=== PATIENT | male | born 1945 | race Caucasian/White ===

== ENCOUNTER 2018-04-20 07:39 | Day surgery (SDC) | payer OTHER ==
[2018-04-17 12:47] LABS: Absolute Lymphocytes (CBC) 0.5 K/uL (0.7-4.9); Absolute Monocytes 0.5 K/uL (0.1-1.3); Absolute Neutrophil 3.4 K/uL (1.8-8.0); Basophils % 0.9 % (0-1.3); Eosinophils % 2.5 % (0-4.4); Hematocrit 35.2 % (39.6-49.0); Lymphocytes % 10.3 % (15.3-44.8); MCH 33.6 pg (27.0-35.0); MCV 97.1 fL (80-100); MPV 7.5 fL (7.6-11.3); Monocytes % 10.8 % (3.3-12.3); RBC Red Blood Cell Count 3.62 M/uL (4.33-5.43)
[2018-04-17 12:59] LABS: Potassium 3.9 mmol/L (3.5-5.1)
--- NOTE | 2018-04-17 15:11 | EKG ---
Test Date: 2018-04-17 Test Time: 12:25:18 Cad Drafter: AJAY MEASUREMENT RESULTS: Intervals: Rate: 56 IA: 176 QRSD: 84 QT: 426 QTc: 411 [place]: P: 51 IA: 176 QRS: 78 T: 77 INTERPRETIVE STATEMENTS: Sinus bradycardia Otherwise normal ECG No previous ECG available for comparison Electronically Signed On 04-17-18 15:10:24 HOT MOLDER by Shree Cordero
--- OUTSIDE RECORDS SUMMARY | 2018-04-20 07:41 | XMS REPORT | Clinical Summary ---
:1945 Author Organization [facility] Address [address] [place] [address] Care Team Providers Name Role Phone Trell Godwin MD Primary Care Provider Allergies Active Allergy Reactions Severity Noted Date Comments Penicillin G 11/05/2017 Medications Medication Sig Dispensed Refills Start Date End Date Status traMADol (ULTRAM) 50 0 10/08/2017 Active mg tablet atorvastatin 0 09/20/2017 Active (LIPITOR) 40 MG tablet levothyroxine 0 10/02/2017 Active (SYNTHROID, LEVOXYL) 112 mcg tablet multivit-min/FA/lycop Take by mouth. 0 Active en/lutein (CENTRUM SILVER MEN ORAL) omeprazole (PriLOSEC) Take 40 mg by 0 Active 40 MG capsule mouth daily. aspirin (ECOTRIN) 81 Take 81 mg by 0 Active MG enteric coated mouth daily. tablet cholecalciferol, Take 2,000 Units 0 Active vitamin D3, (VITAMIN by mouth daily. D3) 2,000 unit capsule capsule traMADol (ULTRAM) 50 Take 1-2 tablets 50 tablet 0 11/14/2017 11/19/2017 mg tablet (50-100 mg total) by mouth every 6 (six) hours as needed for moderate pain for up to 5 days. levoFLOXacin Take 1 tablet 7 tablet 0 11/17/2017 11/24/2017 (LEVAQUIN) 500 MG (500 mg total) tablet by mouth daily for 7 days. metroNIDAZOLE Take 1 tablet 21 tablet 0 11/17/2017 11/24/2017 (FLAGYL) 500 MG (500 mg total) tablet by mouth 3 (three) times a day for 7 days. 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) Alaguguimermy, (Primary Dx) CORNELL Araujo 12/11/2017 Office Visit General Surgery Jaime Greene Malignant neoplasm of MD [place] colon, unspecified Alagugurusamy, part of colon Jaqueline Carballo, (Primary Dx) SOFTWARE DEVELOPMENT COORDINATOR-C 11/30/2017 Orders Only General Surgery Reginosamy, Malignant neoplasm of Jaqueline Carballo, ascending colon SOFTWARE DEVELOPMENT COORDINATOR-C (Primary Dx) 11/27/2017 Office Visit General Surgery Jaime Greene Malignant neoplasm of MD [place] ascending colon (Primary Dx) 11/21/2017 Orders Only General Surgery Jaime Greene MD 11/17/2017 Orders Only General Surgery Samantha Alva MD 11/14/2017 Orders Only General Surgery Samantha Alva MD 11/06/2017 Orders Only General Surgery Jaime Greene MD 11/05/2017 Hospital Encounter Radiology Jaime Greene Benign neoplasm of MD [place] ascending colon 11/05/2017 Office Visit General Surgery Jaime Greene Polyp of ascending MD [place] colon, unspecified type (Primary Dx) 11/05/2017 Orders Only General Surgery Jaime Greene Benign neoplasm of MD [place] ascending colon (Primary Dx) after 04/19/2017 Family History Medical History Relation Name Comments Heart disease Father Hypertension Father Stroke Father Relation Name Status Comments Father Social History Tobacco Use Types Packs/Day Years Used Date Never Smoker Smokeless Tobacco: Never Used Alcohol Use Drinks/Week oz/Week Comments Yes 5 -8 week Sex Assigned at Date Recorded Not on file Job Start Date Occupation Industry Not on file Not on file Not on file Travel History Travel Start Travel End No recent travel history available. Last Filed Vital Signs Vital Sign Reading Time Taken Blood Pressure 165/84 04/16/2018 9:46 AM [employer]MENT[employer] Pulse 67 04/16/2018 9:46 AM [employer]MENT[employer] Temperature 36.8 C (98.2 F) 04/16/2018 9:46 AM [employer]MENTAL BU[employer]ER Respiratory Rate - - Oxygen Saturation - - Inhaled Oxygen Concentration - - Weight 53.1 kg (117 lb) 12/11/2017 1:35 PM CDT Height 188 cm (6' 2") 11/05/2017 5:49 PM CDT Body Mass Index 15.02 12/11/2017 1:35 PM CDT Plan of Treatment Health Maintenance Due Date Last Done Comments COLON CANCER SCREENING 1993 SHINGRIX VACCINE (1 of 2) 1993 ZOSTER VACCINE 2003 PNEUMOCOCCAL POLYSACCHARIDE VACCINE AGE 65 AND OVER 01/14/2008 PNEUMOCOCCAL-13 01/14/2008 INFLUENZA VACCINE 12/10/2017 Procedures Procedure Name Priority Date/Time Associated Comments Diagnosis SURGICAL PATHOLOGY Routine 11/14/[address] CHEST W CONTRAST Routine 11/05/2017 6:30 PM Benign neoplasm of Results for this CDT ascending colon procedure are in the results section. ESTIMATED GFR Routine 11/05/2017 6:01 PM Results for this CDT procedure are in the results section. POC CREATININE Routine 11/05/2017 6:01 PM Results for this CDT procedure are in the results section. after 04/19/2017 Results Surgical pathology request (11/14/2017) Specimen Tissue Narrative Performed At CT Chest W Contrast (11/05/2017 6:30 PM CDT) Narrative Performed At CT CHEST W CONTRAST RADIANT CLINICAL INDICATION: D12.2 Benign neoplasm of ascending colon, cecal mass TECHNIQUE:Multidetector CT imaging of the chest was performed following the administration of intravenous contrast with multiplanar reconstructions. CT scans are performed using radiation dose reduction techniques (iterative reconstruction and/or automated exposure control). Technical factors are evaluated and adjusted to ensure appropriate moderation of exposure. Automated dose management technology is applied to adjust radiation exposure while achieving a diagnostic quality image. COMPARISON:None. FINDINGS: Lungs and large airways: Mild biapical scarring. Right lower lobe perifissural 4 mm nodule (series 3 image 73). No pulmonary nodules visualized. No focal or confluent airspace consolidation. Pleura:No pleural effusion, pleural thickening, or pneumothorax. Heart and pericardium:Heart size is normal. Mild coronary atherosclerosis. No pericardial effusion. Vessels:No aortic aneurysm or dissection. Main pulmonary artery measures 2.3 cm in diameter. No pulmonary emboli within proximal pulmonary arteries. Mediastinum and justyn:No mass or hematoma. Lymph nodes:No pathological adenopathy in the justyn, axilla or mediastinum. Chest wall:Unremarkable. Bones:Mild degenerative changes. Upper abdomen: Right renal cyst measuring 2.4 cm. Small hiatal hernia.. IMPRESSION: Right lower lobe perifissural nodule (4 mm) is indeterminate though possibly represents intrapulmonary lymph node. Follow-up is recommended. [facility]-[id number] Procedure Note Hm Interface, Radiology Results Incoming - 11/05/2017 8:[address] CHEST W CONTRAST CLINICAL INDICATION: D12.2 Benign neoplasm of ascending colon, cecal mass TECHNIQUE: Multidetector CT imaging of the chest was performed following the administration of intravenous contrast with multiplanar reconstructions. CT scans are performed using radiation dose reduction techniques (iterative reconstruction and/or automated exposure control). Technical factors are evaluated and adjusted to ensure appropriate moderation of exposure. Automated dose management technology is applied to adjust radiation exposure while achieving a diagnostic quality image. COMPARISON: None. FINDINGS: Lungs and large airways: Mild biapical scarring. Right lower lobe perifissural 4 mm nodule (series 3 image 73). No pulmonary nodules visualized. No focal or confluent airspace consolidation. Pleura: No pleural effusion, pleural thickening, or pneumothorax. Heart and pericardium: Heart size is normal. Mild coronary atherosclerosis. No pericardial effusion. Vessels: No aortic aneurysm or dissection. Main pulmonary artery measures 2.3 cm in diameter. No pulmonary emboli within proximal pulmonary arteries. Mediastinum and justyn: No mass or hematoma. Lymph nodes: No pathological adenopathy in the justyn, axilla or mediastinum. Chest wall: Unremarkable. Bones: Mild degenerative changes. Upper abdomen: Right renal cyst measuring 2.4 cm. Small hiatal hernia.. IMPRESSION: Right lower lobe perifissural nodule (4 mm) is indeterminate though possibly represents intrapulmonary lymph node. Follow-up is recommended. [facility]-[id number] Performing Organization Address City/State/Zipcode Phone Number [facility] [phone] [place] [address] Estimated GFR (11/05/2017 6:01 PM CDT) GFR Non Af Amer 73 mL/min/1.73 m2 [facility] DEPARTMENT OF PATHOLOGY AND GENOMIC MEDICINE GFR Af Amer 88 mL/min/1.73 m2 [facility] DEPARTMENT OF Comment: PATHOLOGY AND GENOMIC Chronic kidney disease: <60 mL/min/1.73m2 MEDICINE Kidney failure: <15 mL/min/1.73m2 The estimated GFR is calculated from the IDMS-traceable Modification of Diet in Renal Disease Equation. The accuracy of the calculation is poor when the creatinine is normal. Calculated values >90 mL/min/1.73m2 are not reported. This equation has not been validated in children (<18 years), women, the elderly (>70 years), or ethnic groups other than Caucasians and Americans. Specimen Blood Performing Organization Address City/State/Zipcode Phone Number [facility] DEPARTMENT OF PATHOLOGY AND [address] [place] [address] GENOMIC MEDICINE POC creatinine (11/05/2017 6:01 PM CDT) POC creatinine 1.0 0.7 - 1.2 mg/dl [facility] DEPARTMENT OF PATHOLOGY Comment: AND GENOMIC MEDICINE Meter ID: [id number] Dry Box Tender: Duc Lopez Specimen Blood Performing Organization Address City/[facility]/Zipcode Phone Number [facility] DEPARTMENT OF PATHOLOGY AND [address] [place] [address] GENOMIC MEDICINE after 04/19/2017 Insurance Payer Benefit Plan / Group Subscriber ID Type Phone Address MEDICARE MEDICARE PART A AND B xxxxxxxxxx Medicare [place], [place] AETNA AETNA PPO OPEN CHOICE xxxxxxxxx PPO (Home) [address] [place] [id number] Advance Directives Patient has advance care planning documents on file. For more information, please contact:Humphrey Leroy[address] [place] [address]
--- OUTSIDE RECORDS SUMMARY | 2018-04-20 07:41 | XMS REPORT | Clinical Summary ---
:[address] [facility] Address [address] [place] [address] Care Team Providers Name Role Phone Nelsy Kumar Primary Care Provider Allergies Active Allergy Reactions Severity Noted Date Comments Penicillins Swelling High 11/10/2017 Medications Medication Sig Dispensed Refills Start Date End Date Status atorvastatin Take 40 mg by 0 Active (LIPITOR) 40 MG mouth daily. tablet lisinopril Take 5 mg by 0 Active (PRINIVIL,ZESTRIL) 5 mouth daily. MG tablet levothyroxine Take 112 mcg 0 Active (SYNTHROID, by mouth LEVOTHROID) 112 MCG Every morning tablet on an empty stomach. OMEPRAZOLE ORAL Take by mouth 0 Active daily. cyanocobalamin 2000 Take 2,000 0 Active MCG tablet mcg by mouth daily. cholecalciferol, Take 5,000 0 Active vitamin D3, 5,000 Units by unit Tab mouth daily. TURMERIC ROOT Take by mouth 0 Active EXTRACT ORAL daily. ogzmbklv-jemp-uue-fo Take by mouth 0 Active lic acid daily. (OTBGEICGHUOV-TVTT-U INERALS-FOLIC ACID) 3,500-18-0.4 unit-mg-mg Chew levoFLOXacin Take 1 tablet 7 tablet 0 11/17/2017 11/24/2017 (LEVAQUIN) 500 MG (500 mg tablet total) by mouth daily for 7 days. metroNIDAZOLE Take 1 tablet 21 tablet 0 11/17/2017 11/17/2017 Discontinued (FLAGYL) 500 MG (500 mg tablet total) by mouth every 8 (eight) hours for 7 days. traMADol (ULTRAM) 50 Take 1-2 30 tablet 0 11/17/2017 11/27/2017 mg tablet tablets (50-100 mg total) by mouth every 6 (six) hours as needed for up to 10 days. Max Daily Amount: 400 mg linezolid (ZYVOX) Take 1 tablet 14 tablet 0 11/17/2017 11/17/2017 Discontinued 600 mg tablet (600 mg total) by mouth 2 (two) times daily for 7 days. linezolid (ZYVOX) Take 1 tablet 14 tablet 0 11/17/2017 11/24/2017 600 mg tablet (600 mg total) by mouth 2 (two) times daily for 7 days. Active Problems Problem Noted Date Adenoma of ascending colon 11/14/2017 Encounters Date Type Specialty Care Team Description 11/14/2017 Anesthesia Event Beverly Cox NP 11/14/2017 Surgery Jaime Greene LAPAROSCOPY,COLECTO MD [place] MY RIGHT 11/14/2017 - Hospital Encounter General Internal Jaime Greene Adenoma of 11/17/2017 Medicine MD [place] ascending colon (Primary Dx) 11/10/2017 Anesthesia Event Pre-Admission Beverly Cox NP 11/10/2017 Hospital Encounter Pre-Admission Jaime Greene Testing MD [place] after 04/19/2017 Immunizations Name Dates Previously Given Next Due Pneumococcal Conjugate (Prevnar) 13-Valent 11/17/2017 Social History Tobacco Use Types Packs/Day Years Used Date Never Smoker Smokeless Tobacco: Never Used Alcohol Use Drinks/Week oz/Week Comments Yes occasional Sex Assigned at Date Recorded Not on file Job Start Date Occupation Industry Not on file Not on file Not on file Travel History Travel Start Travel End No recent travel history available. Last Filed Vital Signs Vital Sign Reading Time Taken Blood Pressure 152/74 11/17/2017 3:03 PM CDT Pulse 74 11/17/2017 3:03 PM CDT Temperature 36.3 C (97.4 F) 11/17/2017 3:03 PM CDT Respiratory Rate 18 11/17/2017 3:03 PM CDT Oxygen Saturation 100% 11/17/2017 3:03 PM CDT Inhaled Oxygen Concentration - - Weight 60 kg (132 lb 3.2 oz) 11/14/2017 5:28 AM CDT Height 188 cm (6' 2") 11/14/2017 5:28 AM CDT Body Mass Index 16.97 11/14/2017 5:28 AM CDT Plan of Treatment Not on file Procedures Procedure Name Priority Date/Time Associated Comments Diagnosis CBC W/PLT COUNT & Routine 11/17/2017 5:10 Results for this AUTO DIFFERENTIAL AM CDT procedure are in the results section. CBC W/PLT COUNT & Routine 11/17/2017 5:10 Results for this AUTO DIFFERENTIAL AM CDT procedure are in the results section. MAGNESIUM Routine 11/17/2017 5:10 Results for this AM CDT procedure are in the results section. BASIC METABOLIC PANEL Routine 11/17/2017 5:10 Results for this (7) AM CDT procedure are in the results section. MAGNESIUM Routine 11/16/2017 6:06 Results for this AM CDT procedure are in the results section. BASIC METABOLIC PANEL Routine 11/16/2017 6:06 Results for this (7) AM CDT procedure are in the results section. CBC (HEMOGRAM ONLY) Routine 11/16/2017 2:56 Results for this AM CDT procedure are in the results section. CBC (HEMOGRAM ONLY) Routine 11/15/2017 3:45 Results for this AM CDT procedure are in the results section. MAGNESIUM Routine 11/15/2017 3:45 Results for this AM CDT procedure are in the results section. BASIC METABOLIC PANEL Routine 11/15/2017 3:45 Results for this (7) AM CDT procedure are in the results section. FUNGUS CULTURE + Routine 11/14/2017 10:21 Results for this SMEAR AM CDT procedure are in the results section. ANAEROBIC CULTURE Routine 11/14/2017 10:21 Results for this AM CDT procedure are in the results section. SURGICALLY OBTAINED Routine 11/14/2017 10:21 Results for this CULTURE + GRAM STAIN AM CDT procedure are in the results section. TISSUE EXAM AP Routine 11/14/2017 10:15 Results for this AM CDT procedure are in the results section. LAPAROSCOPY,COLECTOMY 11/14/2017 7:30 Adenoma of RIGHT AM CDT ascending colon TRANSFUSION SERVICE 11/11/2017 6:04 REPORT - SCAN PM CDT TYPE AND SCREEN, Routine 11/10/2017 3:30 Results for this AUTOMATED PM CDT procedure are in the results section. BASIC METABOLIC PANEL Routine 11/10/2017 3:30 Results for this (7) PM CDT procedure are in the results section. PLATELET COUNT Routine 11/10/2017 3:30 Results for this PM CDT procedure are in the results section. HEMOGLOBIN Routine 11/10/2017 3:30 Results for this PM CDT procedure are in the results section. after 04/19/2017 Results CBC with platelet count + automated diff (11/17/2017 5:10 AM CDT) WBC 10.6 (H) 3.5 - 10.5 K/L [facility] RBC 2.95 (L) 4.63 - 6.08 M/L [facility] Hemoglobin 8.5 (L) 13.7 - 17.5 GM/DL [facility] Hematocrit 26.2 (L) 40.1 - 51.0 % [facility] MCV 88.8 79.0 - 92.2 fL [facility] MCH 28.8 25.7 - 32.2 pg [facility] MCHC 32.4 32.3 - 36.5 GM/DL [facility] RDW 13.9 11.6 - 14.4 % [facility] Platelets 292 150 - 450 K/CU MM [facility] MPV 9.7 9.4 - 12.4 fL [facility] nRBC 0 0 - 0 /100 WBC [facility] % Neutros 92 % [facility] % Lymphs 4 % [facility] % Monos 3 % [facility] % Eos 1 % [facility] % Baso 0 % [facility] # Neutros 9.72 (H) 1.78 - 5.38 K/L [facility] # Lymphs 0.38 (L) 1.32 - 3.57 K/L [facility] # Monos 0.31 0.30 - 0.82 K/L [facility] # Eos 0.07 0.04 - 0.54 K/L [facility] # Baso 0.02 0.01 - 0.08 K/L [facility] Immature Granulocytes-Relative 1 0 - 1 % [facility] Specimen Blood Performing Organization Address City/State/Zipcode Phone Number [address] [phone] CENTER Magnesium (11/17/2017 5:10 AM CDT)Only the most recent of3 resultswithin the time period is included. Magnesium 1.8 1.6 - 2.6 mg/dL [facility] Specimen Blood Performing Organization Address [facility] Phone Number [address] [address] [place] Basic Metabolic Panel (11/17/2017 5:10 AM CDT)Only the most recent of4 resultswithin the time period is included. Sodium 132 (L) 136 - 145 meq/L [facility] Potassium 3.6 3.5 - 5.1 meq/L [facility] Chloride 102 98 - 107 meq/L [facility] CO2 23 22 - 29 meq/L [facility] BUN 19 7 - 21 mg/dL [facility] Creatinine 0.78 0.57 - 1.25 mg/dL [facility] Glucose 87 70 - 105 mg/dL [facility] Calcium 8.4 8.4 - 10.2 mg/dL [facility] EGFR 97Comment: ESTIMATED GFR IS mL/min/1.73 sq m [facility] NOT ACCURATE [facility] CLEARANCE IN PREDICTING GLOMERULAR FILTRATION RATE. ESTIMATED GFR IS NOT APPLICABLE FOR DIALYSIS PATIENTS. Specimen Blood Performing Organization Address City/State/[facility] Centercode Phone Number [facility] [address] [place] [address] [phone] CENTER CBC (Hemogram only) (11/16/2017 2:56 AM CDT)Only the most recent of2 resultswithin the time period is included. WBC 15.4 (H) 3.5 - 10.5 K/L [facility] RBC 3.54 (L) 4.63 - 6.08 M/L [facility] Hemoglobin 10.4 (L) 13.7 - 17.5 GM/DL [facility] Hematocrit 31.6 (L) 40.1 - 51.0 % [facility] MCV 89.3 79.0 - 92.2 fL [facility] MCH 29.4 25.7 - 32.2 pg [facility] MCHC 32.9 32.3 - 36.5 GM/DL [facility] RDW 13.7 11.6 - 14.4 % [facility] Platelets 319 150 - 450 K/CU MM [facility] MPV 10.5 9.4 - 12.4 fL [facility] nRBC 0 0 - 0 /100 WBC [facility] Specimen Blood Performing Organization Address City/[facility]/Zipcode Phone Number [facility] [address] [place] [address] CENTER Anaerobic culture (11/14/2017 10:21 AM CDT) Result BACTEROIDES FRAGILIS GROUP (A) [facility] Result BACTEROIDES FRAGILIS GROUP [facility] ()Comment: of a second type MEDICAL CENTER Result PARVIMONAS MICRA (A) [facility] Result PREVOTELLA SPECIES (A) [facility] Specimen Body Fluid - Abdomen Performing Organization Address City/State/Zipcode Phone Number [facility] [address] [place] [address] CENTER Surgically obtained culture + gram stain (11/14/2017 10:21 AM CDT) Result PSEUDOMONAS AERUGINOSA (A) [facility] Result 1+ Enterococcus species (A) [facility] Result STREPTOCOCCUS, VIRIDANS GROUP [facility] () MEDICAL [place] Result 1+ Diphtheroid (A) [facility] Gram Stain Result <1+ WBCs [facility] Gram Stain Result <1+ gram negative rods [facility] Gram Stain Result 2+ gram positive cocci in [facility] Gram Stain Result <1+ gram positive rods [facility] Specimen Body Fluid - Abdomen Organism Antibiotic Method Susceptibility Pseudomonas aeruginosa Amikacin <=8: Susceptible Pseudomonas aeruginosa Aztreonam 4: Susceptible Pseudomonas aeruginosa Cefepime <=4: Susceptible Pseudomonas aeruginosa Ceftazidime 2: Susceptible Pseudomonas aeruginosa Ciprofloxacin <=0.5: Susceptible Pseudomonas aeruginosa Doripenem 1: Susceptible Pseudomonas aeruginosa Gentamicin <=2: Susceptible Pseudomonas aeruginosa Imipenem 2: Susceptible Pseudomonas aeruginosa Levofloxacin <=1: Susceptible Pseudomonas aeruginosa Meropenem 1: Susceptible Pseudomonas aeruginosa Piperacillin <=16: Susceptible Pseudomonas aeruginosa Piperacillin + Tazobactam <=8: Susceptible Pseudomonas aeruginosa Tobramycin <=2: Susceptible Enterococcus species Ampicillin <=2: Susceptible Enterococcus species Linezolid 2: Susceptible Enterococcus species Vancomycin 1: Susceptible Performing Organization Address City/[facility]/Zipcode Phone Number [address] [address] [place] Fungus culture + smear (11/14/2017 10:21 AM CDT) Result ROX ALBICANS (A) [facility] Fungus Smear No fungi seen [facility] Specimen Body Fluid - Abdomen Performing Organization Address City/State/Zipcode Phone Number [address] [address] [place] Tissue Exam (11/14/2017 10:15 AM CDT) Case Report Surgical Pathology Report Case: [id number] LUCIANA CLANCY Authorizing Provider:Jaime Greene MDCollected: 11/14/2017 1015 [facility] Ordering Location: [facility] Received: 11/14/2017 1019 CENTER SERVICES Pathologist: Melia De Anda MD Specimens: A) - Abdomen, ABDOMINAL WALL ABCESS AND CANCER B) - Large Intestine, Colon - Right/Ascending, perforated and abcessed C) - Abdomen, Abdominal wall perforated tumor ADDENDUM The addendum is issued to report the results of molecular tests performed at [facility]. [facility] INDEPENDENCENicolaFORMERLY [facility] RESULTS: [place] - NRAS MUTATION: NOT DETECTED - KRAS MUTATION: NOT DETECTED - PD-L1 22C3 FDA (KEYTRUDA): NO EXPRESSION - TUMOR PROPORTION SCORE: 0% - INTENSITY: 0 Please see the attached scanned documents for more information. DIAGNOSIS A. SOFT TISSUE, ABDOMINAL WALL, EXCISION: LUCIANA CLANCY - INVASIVE MODERATELY DIFFERENTIATED ADENOCARCINOMA CONSISTENT [facility] WITH COLONIC PRIMARY CENTER - TUMOR EXTENDS TO THE INKED MARGIN B. 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 SOFT TISSUE, ABDOMINAL WALL, PERFORATED TUMOR, EXCISION: - INVASIVE MODERATELY DIFFERENTIATED ADENOCARCINOMA CONSISTENT WITH COLONIC PRIMARY - TUMOR EXTENDS TO THE TISSUE EDGE - PERINEURAL INVASION IS PRESENT Signing Pathologist Direct Phone Line: [phone] COMMENT According to the operative note LUCIANA CLANCY dated 11/14/17, the tumor is [facility] growing from the colon into the CENTER abdominal wall. If there is direct invasion of the tumor, this could represent pT4b. Also, it is unclear if the abdominal wall tumor (specimens A and C) is in direct contiguity with the colonic tumor and whether or not this represents metastasis. Clinical correlation is required. SYNOPTIC REPORT COLON AND RECTUM: Resection, Including Transanal Disk Excision of Rectal Neoplasms(Colon Res - All Specimens) [facility] SPECIMEN Procedure:Right hemicolectomy TUMOR Tumor Site:Right (ascending) colon Histologic Type:Adenocarcinoma Histologic Grade:G2: Moderately differentiated Tumor Size:Greatest dimension in Centimeters (cm): 8.2 Centimeters (cm) Additional Dimension in Centimeters (cm):6.6 Centimeters (cm ) Additional Dimension in Centimeters (cm):1.2 Centimeters (cm ) Tumor Deposits:Not identified Tumor Extent: Tumor Extension:Tumor invades the visceral peritoneum Macroscopic Tumor Perforation:Present Accessory Findings: Lymphovascular Invasion:Present :Small vessel lymphovascular invasion :Large vessel (venous) invasion Perineural Invasion:Present Treatment Effect:No known presurgical therapy MARGINS Margins:All margins are uninvolved by invasive carcinoma, high- grade dysplasia, intramucosal adenocarcinoma, and adenoma Margins Examined:Proximal Margins Examined:Distal Margins Examined:Radial or Mesenteric Distance of Invasive Carcinoma from Closest Margin:5.7 Centimeters (cm) Closest Margin:Distal Distance of Tumor from Radial Margin:7.4 Centimeters (cm) LYMPH NODES Number of Lymph Nodes Involved:0 Number of Lymph Nodes Examined:22 PATHOLOGIC STAGE CLASSIFICATION (pTNM, AJCC 8th Edition) Primary Tumor (pT):pT4a Regional Lymph Nodes (pN):pN0 ADDITIONAL FINDINGS Additional Pathologic Findings:Adenoma(s) CPT Code(s) [address] [facility] [address] [facility] [address] [place] [id number] CLINICAL HISTORY Adenoma of ascending colon [facility] SPECIMEN SOURCE A. Abdomen; B. Large intestine, [facility] colon - right/ascending ; C. [facility] Abdomen CENTER GROSS DESCRIPTION The specimen is received in three parts labeled with the patient's name and accession number which corresponds to patient's same name and accession number on accompanying requisition form. [facility] A. Received fresh for intraoperative consultation and labeled "abdominal tissue" is a 2.8 x 1.9 x 0.8 cm irregular piece of alfaro-pink to alfaro-white fibrous soft tissue within area of alfaro-white to alfaro-rdz CENTER friable discoloration which measures 0.8 x 0.7 x 0.5 cm on one surface. The entirety of the specimen outer surface is inked black and the specimen is serially sectioned along the long axis perpendicula r to the inner face between the fibrous and friable areas. A metals sales representative section is submitted for frozen evaluation as FSA1. The remainder of the specimen is serially submitted in its entirety in cassettes A1 through A5. JY/ pl B. Received labeled "ascending colon" are two segments of bowel. The first segment is 24.8 cm in length and ranging from 2.4 to 7.6 cm in diameter. The second bowel segment is unoriented measuring 20.6 cm in length and ranging in diameter from 3.1 to 4.9 cm in diameter, bearing a full-thickness wall defect measuring 4.1 x 1.2 cm. The first bowel segment shows an ulcerated, fungating mass present at the serosal surface that measures 8.2 cm in length and 6.6 cm in diameter. The attached pericolonic fat measures 15.3 x 10.5 x 2.4 c m. The remaining serosal surface shows focal adhesions. The margins are inked and the colonic segment is opened to reveal a alfaro-white fibrous to necrotic alfaro-green fungating, ulcerating mass with accomp anying circumferential stricture, measuring 8.2 x 6.6 x 1.2 cm and extending to the serosal surface, located 9.4 cm from the proximal margin, 5.7 cm from the distal margin, and 7.4 cm from the radial ma rgin. A 0.6 x 0.4 x 0.2 cm colon polyp is located 3.4 cm from the distal margin. The remainder of the mucosa of the right colon segment is alfaro-brown to alfaro-pink with the expected folds. No other masses or lesions are grossly noted. No definite appendix is identified. A tubular structure is identified which possibly represents a vessel wall or an appendix. The additional small bowel segment is opened to reveal alfaro-brown to alfaro-pink mucosa with the expected folds, with focal erythema at the area of the previously described transmural tear. No masses or les ions are grossly evident. The serosal surface is a smooth and glistening alfaro- pink with multiple adhesions. The pericolonic fat is examined for lymph nodes and yields 21 candidate lymph nodes ranging from 0.1 to 0.5 cm in greatest dimension. Furniture Manager sections are submitted as follows: Ink code: blue, margin 1, first bowel segment; black margin 2, first bowel segment; green, fungating mass at serosa, first bowel segment; orange, margin 1 , second bowel segment. Section code: cassette B1. Proximal margin of first bowel segment with tumor , en face; B2, Distal margin of first bowel segment with tumor; B3, Proximal margin of second bowel segment without tumor en f earlene; cassette B4, Distal margin of second bowel segment without tumor; B5 through B13, metals sales representative tumor, including full thickness sections; B14, colon polyp; B15, Furniture Manager section grossly norm al mucosa toward proximal margin; B16, metals sales representative grossly normal colonic mucosa toward distal of first bowel segment; B17, metals sales representative area of transmural defect in second bowel segment; B18, repr esentative grossly normal mucosa of second bowel segment; B19, three candidate lymph nodes, whole; B20, four candidate lymph nodes, whole; B21, four candidate lymph nodes, whole; B22, three candidate ly mph nodes, whole; B23, five candidate lymph nodes, whole; B24, two candidate lymph nodes, whole. B25, metals sales representative of tubular structure; B26, radial margin , en face. C. Received in formalin labeled "abdomen tissue" is a 7.8 x 4.2 x 1.6 cm aggregate of alfaro-white to alfaro-yellow fibrous to soft and friable soft tissue. Furniture Manager sections are submitted in Cassettes C1 to C3. HECTOR/heather INTRAOPERATIVE FROZEN SECTION DIAGNOSIS: [facility] AFS, ABDOMINAL WALL: [facility] - ADENOCARCINOMA CENTER These results are verbally reported to OR-[address] Duffy at 10:45 a.m. MICROSCOPIC DESCRIPTION A,C. Performed. [facility] B. IHC testing for all four MMR proteins was performed on selected block B11 with appropriate controls. CENTER RESULTS MLH1: Loss of nuclear expression PMS2: Loss of nuclear expression MSH2: Intact nuclear expression MSH6: Intact nuclear expression IHC Interpretation Loss of nuclear expression of MLH1 and PMS2: Testing for methylation of the MLH1 promoter and/or mutation of BRAF is indicated (the presence of a BRAF V600E mutation and/or MLH1 methylation suggests that the tumor is sporadic and germline evaluati on is probably not indicated; absence of both MLH1 methylation and of BRAF V600E mutation suggests the possibility of Wolff syndrome, and sequencing and/ or large deletion/duplication testing of germline MLH1 may be indicated)# There are exceptions to the above IHC interpretations. These results should not be considered in isolation, and clinical correlation with genetic counseling is recommended to assess the need for germline testing. SPECIAL STUDIES The following special studies were performed on this case and the interpretation is incorporated in the diagnostic report above: [facility] The immunohistochemistry test was developed and its performance characteristics determined by [facility], Pathology Laboratory. It has not been cleared or approved by the U.S. Food and [facility] Drug Administration. The FDA has determined that such clearance or approval is not necessary. The test is used for clinical purposes. It should not be regarded as investigational or for research. This [place] laboratory is certified under the Clinical Laboratory Improvement Amendments of 1988 (CLIA-88) as qualified to perform high complexity clinical laboratory testing. Specimen Tissue - Abdomen Narrative Performed At Performing Organization Address [facility] Cent[facility]t Phone Number [address] [address] [place] TRANSFUSION SERVICE REPORT - SCAN (11/11/2017 6:04 PM CDT) Narrative Performed At Type and screen, automated (11/10/2017 3:30 PM CDT) ABO/RH AUTOMATED (BEAKER) AB POSITIVE [facility] Ab Scrn NEGATIVE [facility] Specimen Blood Performing Organization [facility] Phone Number [address] [address] [phone] Platelet count (11/10/2017 3:30 PM CDT) Platelets 365 150 - 450 K/CU MM [facility] Specimen Blood Performing Organization Address [facility] Phone Number [address] [address] [place] Hemoglobin (11/10/2017 3:30 PM CDT) Hemoglobin 11.2 (L) 13.7 - 17.5 GM/DL [facility] Specimen Blood Performing Organization Address City/State/Zipcode Phone Number [facility] [address] [place] [address] [phone] CENTER after 04/19/2017 Insurance Payer Benefit Plan / Group Subscriber ID Type Phone Address MEDICARE MEDICARE A B xxxxxxxxxx Medicare AETNA - MGD CARE AETNA INDEMNITY NON CONTR xxxxxxxxx Comm Advance Directives Patient has advance care planning documents, and code status on file. For more information, please contact:[facility] [place], [place] [phone] Code Status Date Activated Date Inactivated Comments Full Code 11/14/2017 2:10 PM 11/17/2017 5:49 PM This code status was determined by: Patient
--- OUTSIDE RECORDS SUMMARY | 2018-04-20 07:42 | XMS REPORT ---
:1945 [facility] Address [address] [place] [address] [address] [address] Care Team Providers Name Role Phone SHRUTHI GREENE Unavailable Unavailable Problems This patient has no known problems. Allergies, Adverse Reactions, Alerts This patient has no known allergies or adverse reactions. Medications This patient has no known medications. Results Test Description Test Time Test Comments Text Results Atomic Results Result Comments TISSUE EXAM 2018-04-17 09:01:00 Surgical Pathology Report Case: [id number] Authorizing Provider: Shruthi Greene MD Collected: 11/14/2017 1015 Ordering Location: [facility] PERIOPERATIVE Received: 11/14/2017 1019 SERVICES Pathologist: Melia De Anda MD Specimens: A) - Abdomen, ABDOMINAL WALL ABCESS AND CANCER B) - Large Intestine, Colon - Right/Ascending, perforated and abcessed C) - Abdomen, Abdominal wall perforated tumor The addendum is issued to report the results of molecular tests performed at [facility]. RESULTS: - NRAS MUTATION: NOT DETECTED - KRAS MUTATION: NOT DETECTED - PD-L1 22C3 FDA (KEYTRUDA): NO EXPRESSION - TUMOR PROPORTION SCORE: 0% - INTENSITY: 0 Please see the attached scanned documents for more information. Addendum electronically signed by Angella Duffy MD on 04/17/2018 at 9:01 AMA. 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 COLON, RIGHT/ASCENDING, RIGHT HEMICOLECTOMY: - INVASIVE ADENOCARCINOMA, [...] GROSSLY IDENTIFIED - TUBULAR ADENOMA - COLONIC DIVERTICULOSISC. 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 If there is direct invasion of the tumor, this could represent pT4b. Also, it is unclear if the abdominal wall tumor (specimens A and C) is in direct contiguity with the colonic tumor and whether or not this represents metastasis. Clinical correlation is required.COLON AND RECTUM: Resection, Including Transanal Disk Excision of Rectal Neoplasms (Colon Res - All Specimens)SPECIMEN Procedure: Right hemicolectomy TUMOR Tumor Site: Right (ascending) colon Histologic Type: Adenocarcinoma Histologic Grade: G2: Moderately differentiated Tumor Size: Greatest dimension in Centimeters (cm): 8.2 Centimeters (cm) Additional Dimension in Centimeters (cm): 6.6 Centimeters (cm) Additional Dimension in Centimeters (cm): 1.2 Centimeters (cm) Tumor Deposits: Not identified Tumor Extent: Tumor Extension: Tumor invades the visceral peritoneum Macroscopic Tumor Perforation: Present Accessory Findings: Lymphovascular Invasion: Present : Small vessel lymphovascular invasion : Large vessel (venous) invasion Perineural Invasion: Present Treatment Effect: No known presurgical therapy MARGINS Margins: All margins are uninvolved by invasive carcinoma, high-grade dysplasia, intramucosal adenocarcinoma, and adenoma Margins Examined: Proximal Margins Examined: Distal Margins Examined: Radial or Mesenteric Distance of Invasive Carcinoma from Closest Margin: 5.7 Centimeters (cm) Closest Margin: Distal Distance of Tumor from Radial Margin: 7.4 Centimeters (cm)LYMPH NODES Number of Lymph Nodes Involved: 0 Number of Lymph Nodes Examined: 22 PATHOLOGIC STAGE CLASSIFICATION (pTNM, AJCC 8th Edition) Primary Tumor (pT): pT4a Regional Lymph Nodes (pN): pN0 ADDITIONAL FINDINGS Additional Pathologic Findings: Adenoma(s) [id number] of ascending colonA. Abdomen; B. Large intestine, colon - right/ascending ; C. AbdomenThe specimen is received in three parts labeled with the patient's name and accession number which corresponds to patient's same name and accession number on accompanying requisition form. A. Received fresh for intraoperative consultation and labeled "abdominal tissue" is a 2.8 x 1.9 x 0.8 cm irregular piece of alfaro-pink to alfaro-white fibrous soft tissue within area of alfaro-white to alfaro-rdz friable discoloration which measures 0.8 x 0.7 x 0.5 cm on one surface. The entirety of the specimen outer surface is inked black and the specimen is serially sectioned along the long axis perpendicular to the inner face between the fibrous and friable areas. A loan representative section is submitted for frozen evaluation as FSA1. The remainder of the specimen is serially submitted in its entirety in cassettes A1 through A5. JY/plB. Received labeled "ascending colon" are two segments [...] fat measures 15.3 x 10.5 x 2.4 cm. The remaining serosal surface shows focal adhesions. The margins are inked and the colonic segment is opened to reveal a alfaro-white fibrous to necrotic alfaro-green fungating, ulcerating mass with accompanying circumferential stricture, measuring 8.2 x 6.6 x 1.2 cm and extending to the serosal surface, located 9.4 cm from the proximal margin, 5.7 cm from the distal margin, and 7.4 cm from the radial margin. A 0.6 x 0.4 x 0.2 cm colon polyp is located 3.4 cm from the distal margin. The remainder of the mucosa of the right colon segment is alfaro-brown to alfaro-pink with the expected folds. No other masses or lesions are grossly noted. No definite appendix is identified. A tubular structure is identified which possibly represents a vessel wall or an appendix.The additional small bowel segment is opened to reveal alfaro-brown to alfaro-pink mucosa with the expected folds, with focal erythema at the area of the previously described transmural tear. No masses or lesions are grossly evident. The serosal surface is a smooth and glistening alfaro-pink with multiple adhesions. The pericolonic fat is examined for lymph nodes and yields 21 candidate lymph nodes ranging from 0.1 to 0.5 cm in greatest dimension. Dials Inspector sections are submitted as follows: Ink code: blue, margin 1, first bowel segment; black margin 2, first bowel segment; green, fungating mass at serosa, first bowel segment; orange, margin 1, second bowel segment. Section code: cassette B1. Proximal margin of first bowel segment with tumor, en face; B2, Distal margin of first bowel segment with tumor; B3, Proximal margin of second bowel segment without tumor en face; cassette B4, Distal margin of second bowel segment without tumor; B5 through B13, loan representative tumor, including full thickness sections; B14, colon polyp; B15, Dials Inspector section grossly normal mucosa toward proximal margin; B16, loan representative grossly normal colonic mucosa toward distal of first bowel segment; B17, loan representative area of transmural defect in second bowel segment; B18, loan representative grossly normal mucosa of second bowel segment; B19, three candidate lymph nodes, whole; B20, four candidate lymph nodes, whole; B21, four candidate lymph nodes, whole; B22, three candidate lymph nodes, whole; B23, five candidate lymph nodes, whole; B24, two candidate lymph nodes, whole. B25, loan representative of tubular structure; B26, radial margin, en face.C. Received in formalin labeled "abdomen tissue" is a 7.8 x 4.2 x 1.6 cm aggregate of alfaro-white to alfaro-yellow fibrous to soft and friable soft tissue. Dials Inspector sections are submitted in Cassettes C1 to C3. HECTOR/Tevin SECTION DIAGNOSIS: AFS, ABDOMINAL WALL: - ADENOCARCINOMA These results are verbally reported to OR-[address] Duffy at 10:45 a.m. A,C. Performed.B. IHC testing for all four MMR proteins was performed on selected block B11 with appropriate controls. RESULTS MLH1: Loss of nuclear expression PMS2: Loss of nuclear expression MSH2: Intact nuclear expression MSH6: Intact nuclear expression IHC Interpretation Loss of nuclear expression of MLH1 and PMS2: Testing for methylation of the MLH1 promoter and/or mutation of BRAF is indicated (the presence of a BRAF V600E mutation and/or MLH1 methylation suggests that the tumor is sporadic and germline evaluation is probably not indicated; absence of both MLH1 methylation and of BRAF V600E mutation suggests the possibility of Wolff syndrome, and sequencing and/or large deletion/duplication testing of germline MLH1 may be indicated)# There are exceptions to the above IHC interpretations. These results should not be considered in isolation, and clinical correlation with genetic counseling is recommended to assess the need for germline testing. The following special studies were performed on this case and the interpretation is incorporated in the diagnostic report above:The immunohistochemistry test was developed and its performance characteristics determined by [facility], Pathology Laboratory. It has not been cleared or approved by the U.S. Food and Drug Administration. The FDA has determined that such clearance or approval is not necessary. The test is used for clinical purposes. It should not be regarded as investigational or for research. This laboratory is certified under the Clinical Laboratory Improvement Amendments of 1988 (CLIA-88) as qualified to perform high complexity clinical laboratory testing. FUNGUS CULTURE + SMEAR 2017-11-25 10:57:00 Test Item Value Reference Range Comments CULTURE (BEAKER) (test zmzp=5008) 1+ Angelica albicans FUNGUS SMEAR (BEAKER) (test fwzn=9241) No fungi seen ANAEROBIC [id number] 08:16:00 Test Item Value Reference Range Comments CULTURE (BEAKER) (test tyzc=9182) 3+ Prevotella species SURGICALLY OBTAINED CULTURE + GRAM [id number] 15:35:00 Test Item Value Reference Range Comments CULTURE (BEAKER) (test PSEUDOMONAS 2+ Pseudomonas riop=2052) AERUGINOSA aeruginosa Amikacin (test code=1) Susceptible 0-16 , Resistant <0 or >16 Aztreonam (test Susceptible 0-8 , code=32) Resistant <0 or >8 Cefepime (test Susceptible 0-8 , code=51) Resistant <0 or >8 Ceftazidime (test Susceptible 0-8 , code=27) Resistant <0 or >8 Ciprofloxacin (test Susceptible 0-1 , code=7) Resistant <0 or >1 Doripenem (test Susceptible 0-2 , uyqh=699) Resistant <0 or >2 Gentamicin (test Susceptible 0-4 , code=18) Resistant <0 or >4 Imipenem (test Susceptible 0-2 , code=19) Resistant <0 or >2 Levofloxacin (test Susceptible 0-2 , code=22) Resistant <0 or >2 Meropenem (test Susceptible 0-2 , code=34) Resistant <0 or >2 Piperacillin (test Susceptible 0-16 , code=24) Resistant <0 or >16 Piperacillin + Susceptible 0-16 , Tazobactam (test Resistant <0 or >16 code=29) Tobramycin (test Susceptible 0-4 , code=25) Resistant <0 or >4 CULTURE (BEAKER) (test ENTEROCOCCUS SPECIES 1+ Enterococcus ywlw=8072) species Ampicillin (test code=26) Linezolid (test code=40) Vancomycin (test code=13) CULTURE (BEAKER) (test 1+ Viridans kpzj=3359) Streptococcus CULTURE (BEAKER) (test 1+ Diphtheroid yqco=8960) GRAM STAIN RESULT <1+ WBCs (BEAKER) (test xeoq=4809) GRAM STAIN RESULT <1+ gram negative (BEAKER) (test rods uamr=332851) GRAM STAIN RESULT 2+ gram positive (BEAKER) (test cocci in pairs live=815863) GRAM STAIN RESULT <1+ gram positive (BEAKER) (test rods kmbv=384255) [id number] 06:33:00 Test Item Value Reference Range Comments MAGNESIUM (BEAKER) (test huoy=295) 1.8 mg/dL 1.6-2.6 BASIC METABOLIC [id number] 06:33:00 Test Item Value Reference Range Comments SODIUM (BEAKER) (test 132 meq/L 136-145 xdvf=492) POTASSIUM (BEAKER) (test 3.6 meq/L 3.5-5.1 ihkg=624) CHLORIDE (BEAKER) (test 102 meq/L 98-107 geet=221) CO2 (BEAKER) (test 23 meq/L 22-29 sino=686) BLOOD UREA NITROGEN 19 mg/dL 7-21 (BEAKER) (test pajr=046) CREATININE (BEAKER) (test 0.78 mg/dL 0.57-1.25 qgys=706) GLUCOSE RANDOM (BEAKER) 87 mg/dL 70-105 (test jxiw=624) CALCIUM (BEAKER) (test 8.4 mg/dL 8.4-10.2 rsfj=718) EGFR (BEAKER) (test 97 mL/min/1.73 sq m ESTIMATED GFR IS NOT xwvw=0548) ACCURATE CREATININE CLEARANCE IN PREDICTING GLOMERULAR FILTRATION RATE. ESTIMATED GFR IS NOT APPLICABLE FOR DIALYSIS PATIENTS. CBC W/PLT COUNT & AUTO [id number] 05:59:00 Test Item Value Reference Range Comments WHITE BLOOD CELL COUNT (BEAKER) (test qcei=644) 10.6 K/ L 3.5-10.5 RED BLOOD CELL COUNT (BEAKER) (test zwpb=067) 2.95 M/ L 4.63-6.08 HEMOGLOBIN (BEAKER) (test yado=641) 8.5 GM/DL 13.7-17.5 HEMATOCRIT (BEAKER) (test obwo=992) 26.2 % 40.1-51.0 MEAN CORPUSCULAR VOLUME (BEAKER) (test dpht=415) 88.8 fL 79.0-92.2 MEAN CORPUSCULAR HEMOGLOBIN (BEAKER) (test 28.8 pg 25.7-32.2 tlur=221) MEAN CORPUSCULAR HEMOGLOBIN CONC (BEAKER) (test 32.4 GM/DL 32.3-36.5 xcje=471) RED CELL DISTRIBUTION WIDTH (BEAKER) (test 13.9 % 11.6-14.4 repd=136) PLATELET COUNT (BEAKER) (test ncdn=893) 292 K/CU MM 150-450 MEAN PLATELET VOLUME (BEAKER) (test rzvq=315) 9.7 fL 9.4-12.4 NUCLEATED RED BLOOD CELLS (BEAKER) (test 0 /100 WBC 0-0 jxlj=631) NEUTROPHILS RELATIVE PERCENT (BEAKER) (test 92 % czhc=253) LYMPHOCYTES RELATIVE PERCENT (BEAKER) (test 4 % pycy=091) MONOCYTES RELATIVE PERCENT (BEAKER) (test 3 % wynq=442) EOSINOPHILS RELATIVE PERCENT (BEAKER) (test 1 % mzyu=019) BASOPHILS RELATIVE PERCENT (BEAKER) (test 0 % dfhu=686) NEUTROPHILS ABSOLUTE COUNT (BEAKER) (test 9.72 K/ L 1.78-5.38 tiao=720) LYMPHOCYTES ABSOLUTE COUNT (BEAKER) (test 0.38 K/ L 1.32-3.57 yrhi=947) MONOCYTES ABSOLUTE COUNT (BEAKER) (test 0.31 K/ L 0.30-0.82 peae=225) EOSINOPHILS ABSOLUTE COUNT (BEAKER) (test 0.07 K/ L 0.04-0.54 jjar=917) BASOPHILS ABSOLUTE COUNT (BEAKER) (test 0.02 K/ L 0.01-0.08 ppdf=013) IMMATURE GRANULOCYTES-RELATIVE PERCENT (BEAKER) 1 % 0-1 (test wkng=5992) [id number] 07:20:00 Test Item Value Reference Range Comments MAGNESIUM (BEAKER) (test siwh=572) 1.8 mg/dL 1.6-2.6 BASIC METABOLIC [id number] 07:20:00 Test Item Value Reference Range Comments SODIUM (BEAKER) (test 131 meq/L 136-145 hquf=690) POTASSIUM (BEAKER) (test 3.9 meq/L 3.5-5.1 cnsp=361) CHLORIDE (BEAKER) (test 98 meq/L 98-107 ntfl=211) CO2 (BEAKER) (test 26 meq/L 22-29 giaj=533) BLOOD UREA NITROGEN 26 mg/dL 7-21 (BEAKER) (test hvwh=319) CREATININE (BEAKER) (test 1.00 mg/dL 0.57-1.25 gibj=571) GLUCOSE RANDOM (BEAKER) 116 mg/dL 70-105 (test cryl=639) CALCIUM (BEAKER) (test 8.9 mg/dL 8.4-10.2 pmpu=457) EGFR (BEAKER) (test 73 mL/min/1.73 sq m ESTIMATED GFR IS NOT ozqk=2841) ACCURATE CREATININE CLEARANCE IN PREDICTING GLOMERULAR FILTRATION RATE. ESTIMATED GFR IS NOT APPLICABLE FOR DIALYSIS PATIENTS. CBC (HEMOGRAM ONLY)2017-11-16 05:18:00 Test Item Value Reference Range Comments WHITE BLOOD CELL COUNT (BEAKER) (test uhqf=622) 15.4 K/ L 3.5-10.5 RED BLOOD CELL COUNT (BEAKER) (test yfrv=206) 3.54 M/ L 4.63-6.08 HEMOGLOBIN (BEAKER) (test bxru=512) 10.4 GM/DL 13.7-17.5 HEMATOCRIT (BEAKER) (test zzun=322) 31.6 % 40.1-51.0 MEAN CORPUSCULAR VOLUME (BEAKER) (test qqzh=390) 89.3 fL 79.0-92.2 MEAN CORPUSCULAR HEMOGLOBIN (BEAKER) (test 29.4 pg 25.7-32.2 sgts=658) MEAN CORPUSCULAR HEMOGLOBIN CONC (BEAKER) (test 32.9 GM/DL 32.3-36.5 xqez=731) RED CELL DISTRIBUTION WIDTH (BEAKER) (test 13.7 % 11.6-14.4 itno=701) PLATELET COUNT (BEAKER) (test rfug=792) 319 K/CU MM 150-450 MEAN PLATELET VOLUME (BEAKER) (test xkrt=890) 10.5 fL 9.4-12.4 NUCLEATED RED BLOOD CELLS (BEAKER) (test 0 /100 WBC 0-0 qcai=892) [id number] 06:33:00 Test Item Value Reference Range Comments MAGNESIUM (BEAKER) (test ffrb=410) 1.7 mg/dL 1.6-2.6 BASIC METABOLIC [id number] 06:33:00 Test Item Value Reference Range Comments SODIUM (BEAKER) (test 129 meq/L 136-145 itxm=622) POTASSIUM (BEAKER) (test 3.8 meq/L 3.5-5.1 nxzx=004) CHLORIDE (BEAKER) (test 101 meq/L 98-107 wuoz=200) CO2 (BEAKER) (test 23 meq/L 22-29 tlbe=369) BLOOD UREA NITROGEN 27 mg/dL 7-21 (BEAKER) (test ppfg=792) CREATININE (BEAKER) (test 1.11 mg/dL 0.57-1.25 ildu=393) GLUCOSE RANDOM (BEAKER) 113 mg/dL 70-105 (test uaku=032) CALCIUM (BEAKER) (test 8.3 mg/dL 8.4-10.2 wifu=647) EGFR (BEAKER) (test 65 mL/min/1.73 sq m ESTIMATED GFR IS NOT irch=2358) ACCURATE CREATININE CLEARANCE IN PREDICTING GLOMERULAR FILTRATION RATE. ESTIMATED GFR IS NOT APPLICABLE FOR DIALYSIS PATIENTS. CBC (HEMOGRAM ONLY)2017-11-15 05:14:00 Test Item Value Reference Range Comments WHITE BLOOD CELL COUNT (BEAKER) (test zckg=434) 9.5 K/ L 3.5-10.5 RED BLOOD CELL COUNT (BEAKER) (test tqcl=491) 3.49 M/ L 4.63-6.08 HEMOGLOBIN (BEAKER) (test weff=308) 10.2 GM/DL 13.7-17.5 HEMATOCRIT (BEAKER) (test urdv=719) 30.7 % 40.1-51.0 MEAN CORPUSCULAR VOLUME (BEAKER) (test dolq=288) 88.0 fL 79.0-92.2 MEAN CORPUSCULAR HEMOGLOBIN (BEAKER) (test 29.2 pg 25.7-32.2 tqlm=198) MEAN CORPUSCULAR HEMOGLOBIN CONC (BEAKER) (test 33.2 GM/DL 32.3-36.5 ysnr=675) RED CELL DISTRIBUTION WIDTH (BEAKER) (test 13.8 % 11.6-14.4 ctib=243) PLATELET COUNT (BEAKER) (test nmdu=413) 314 K/CU MM 150-450 MEAN PLATELET VOLUME (BEAKER) (test mqsv=964) 9.6 fL 9.4-12.4 NUCLEATED RED BLOOD CELLS (BEAKER) (test 0 /100 WBC 0-0 vwfs=391) BASIC METABOLIC [id number] 16:22:00 Test Item Value Reference Range Comments SODIUM (BEAKER) (test 132 meq/L 136-145 sdpt=826) POTASSIUM (BEAKER) (test 3.9 meq/L 3.5-5.1 pfyf=508) CHLORIDE (BEAKER) (test 96 meq/L 98-107 gvkk=507) CO2 (BEAKER) (test 26 meq/L 22-29 btrp=412) BLOOD UREA NITROGEN 30 mg/dL 7-21 (BEAKER) (test eatb=857) CREATININE (BEAKER) (test 1.09 mg/dL 0.57-1.25 eqvj=571) GLUCOSE RANDOM (BEAKER) 86 mg/dL 70-105 (test cipz=511) CALCIUM (BEAKER) (test 9.8 mg/dL 8.4-10.2 ombw=129) EGFR (BEAKER) (test 66 mL/min/1.73 sq m ESTIMATED GFR IS NOT qnqc=2838) ACCURATE CREATININE CLEARANCE IN PREDICTING GLOMERULAR FILTRATION RATE. ESTIMATED GFR IS NOT APPLICABLE FOR DIALYSIS PATIENTS. [id number] 15:56:00 Test Item Value Reference Range Comments HEMOGLOBIN (BEAKER) (test ujlo=677) 11.2 GM/DL 13.7-17.5 PLATELET [id number] 15:56:00 Test Item Value Reference Range Comments PLATELET COUNT (MAY) (test qsjr=675) 365 K/CU MM 150-450
[2018-04-20] MEDS ORDERED: LIDOCAINE 1% MPF 5 ML VIAL ONE (08:32)
[2018-04-20] MEDS ORDERED: PROPOFOL 200 MG/20 ML VIAL IV ONE (08:32)
[2018-04-20] MEDS ORDERED: FENTANYL CITR 100 MCG/2 ML ONE (08:32)
[2018-04-20] MEDS ORDERED: Ringers Lactate 1,000 ML IV ONE (08:34)
[2018-04-20] MEDS ORDERED: NS 0.9% VIAL 20 ML ONE (08:36)
[2018-04-20] MEDS ORDERED: HEPARIN 5000 UNIT/ML 1 ML VIAL ONE (08:37)
[2018-04-20] MEDS ORDERED: LIDOCAINE 1% MPF 30 ML VIAL ONE (08:37)
[2018-04-20] MEDS ORDERED: CIPROFLOXACIN 400mg IV 400 MG/200 ML BAG IV ONE (09:03)
--- NOTE | 2018-04-20 11:20 | RAD REPORT ---
EXAM DESCRIPTION: RAD - Fluoroscopy <1 Hour - 04/20/2018 11:12 am FINDINGS: A single portable C-arm view was obtained during fluoroscopic assisted placement of a left subclavian Port-A-Cath. No suspicious or unexpected finding. Fluoro time was 0.5 minutes.
--- NOTE | 2018-04-20 11:44 | RAD REPORT ---
EXAM DESCRIPTION: RAD - Chest Single View - 04/20/2018 11:39 am CLINICAL HISTORY: S/P PORT-A-CATH PLACEMENT Chest pain. COMPARISON: No comparisons FINDINGS: Portable technique limits examination quality. The lungs are grossly clear. Left-sided port catheter its tip in the SVC. No pneumothorax. The heart is normal in size. No displaced fractures. IMPRESSION: No pneumothorax.
--- NOTE | 2018-04-21 01:47 | OP ---
Date of Procedure: 04/20/2018 Surgeon: Alfred Fam MD Preoperative Diagnosis: Colon cancer. Postoperative Diagnosis: Colon cancer. Procedures: 1.Placement of a Port-A-Cath. 2.Interpretation of fluoroscopy. Anesthesia: Dr. Minor. Complications: None. Implant: A single-lumen Port-A-Cath. Indications: This is the case of a 73-year-old patient with history of colon cancer, in need for jesus motherapy. The patient came for placement of a Port-A-Cath. The benefits, alternatives, and risks o f placement were fully explained to the patient, which include but are not limited to infection, blee ding, damage to adjacent structures, anesthesia complication, pneumothorax, hemothorax, rupture of th e catheter, DVTs, pulmonary emboli, pericarditis, endocarditis, IL, and even . He also understa nds this may not relieve any symptoms. He might need more than one surgical intervention. He unders tands there is a monthly maintenance of his Port-A-Cath and that at the beginning the [facility] m ay do. If it is not, he was advised to contact his primary doctor or contact us to setup this main nan. We also advised that as soon as the Port-A-Cath is not in use by chemotherapy, he should have it removed. He signed a consent. Description Of Procedure: The patient was brought to the operating room, placed in supine position. Anesthesia was done without complication. The left chest and neck were prepped and draped in usual sterile fashion. Local anesthesia was applied after time-out was called. Patient placed in [place] n[place] position. An 18-gauge needle was placed in the left subclavian vein at the first attempt. Marquise dewire was passed through. Needle was removed. This guidewire was guided into the superior vena cav a using fluoroscopy. A pocket was created in the left upper chest. An introducer was placed under d irect visualization with fluoroscopy through the guidewire. Guidewire was removed. The catheter was guided into the superior vena cava and the introducer sheath was peeled off. The catheter was tunne led underneath the skin to meet that new incision in the left upper chest, was cut to proper size and connected to the Port-A-Cath using the digital program manager's specification. This was done under fluoroscop y. After that, we noticed a backflow and inflow doing good. We flushed the Port-A-Cath with the hep nilo, secured in place to the subcutaneous tissue, and then closed the skin in a subcuticular fashion with 3-0 chromic and Steri-Strips on top. Sponge count and instrument counts were correct. The pat ient tolerated the procedure well. The patient was sent to recovery in stable condition. LALIT/EMI Voice ID: [id number] Report ID: [id number]
--- NOTE | 2018-04-21 01:53 | DS ---
Date of Discharge: 04/20/2018 Diagnosis: Colon cancer. Procedures: Port-A-Cath placement under fluoroscopy. Disposition: Home. Activities: As tolerated. No heavy lifting. Followup: Follow up in my office in 1 week, call for appointment [phone]. Discharge Instructions: Keep the area dry for 48 hours, then may shower. Keep Steri-Strips intact. The patient will have a chest x-ray before discharge. LALIT/EMI Voice ID: [id number] Report ID: [id number]
== END 2018-04-20 12:25 | disposition home or self-care (01) ==
LOC: OR 07:39
PROVIDERS: ATTEND Surgery
PROC: 02HV33Z Insertion of Infusion Device into Superior Vena Cava, Percutaneous Approach (ICD-10-PCS; 2018-04-20)
PROC: B518ZZA Fluoroscopy of Superior Vena Cava, Guidance (ICD-10-PCS; 2018-04-20)
PROC: 0JH63XZ Insertion of Tunneled Vascular Access Device into Chest Subcutaneous Tissue and Fascia, Percutaneous Approach (ICD-10-PCS; principal; 2018-04-20 09:30)
DX: C18.9 Malignant neoplasm of colon, unspecified (principal); I10 Essential (primary) hypertension
CPT/HCPCS: 36415; 36561; 71045; 77001; 80048; 85025; 93005; C1788; J0744; J1644 ×2; J2704; J3010; 76000

== ENCOUNTER 2018-06-18 09:06 | Day surgery (SDC) | payer OTHER ==
[~2018-06-18 09:06] MED LIST: FENTANYL CITR 100 MCG/2 ML ONE; LIDOCAINE 1% MPF 2 ML AMPULE ONE; ONDANSETRON 4 MG/2 ML VIAL ONE; PROPOFOL 200 MG/20 ML VIAL IV ONE
--- OUTSIDE RECORDS SUMMARY | 2018-06-18 09:11 | XMS REPORT | Clinical Summary ---
:1945 Author Organization [facility] Address [address] [place] [id number] Care Team Providers Name Role Phone Trell [...] part of colon Jaqueline Carballo, (Primary Dx) SIGN FABRICATOR-C 11/30/2017 Orders Only General Surgery Reginosamy, Malignant neoplasm of Jaqueline Carballo, ascending colon SIGN FABRICATOR-C (Primary Dx) 11/27/2017 Office Visit General Surgery [...] MD Shiraz ascending colon (Primary Dx) after 06/17/2017 Family History Medical History Relation Name Comments [...] Taken Blood Pressure 165/84 04/16/2018 9:46 AM BATTERY CONTAINER INSPECTOR Pulse 67 04/16/2018 9:46 AM BATTERY CONTAINER INSPECTOR Temperature 36.8 C (98.2 F) 04/16/2018 9:46 AM BATTERY CONTAINER INSPECTOR Respiratory Rate - - Oxygen Saturation - - Inhaled Oxygen Concentration - - Weight 53.1 kg (117 lb) 12/11/2017 1:35 PM CDT Height 188 cm (6' 2") 11/05/2017 5:49 PM CDT Body Mass Index 15.02 12/11/2017 1:35 PM CDT Plan of Treatment Health Maintenance Due Date Last Done Comments COLON CANCER SCREENING 1993 SHINGLES VACCINES (1 of 2) 1993 PNEUMOCOCCAL POLYSACCHARIDE VACCINE AGE 65 AND OVER [...] procedure are in the results section. after 06/17/2017 Results Surgical pathology request (11/14/2017) Specimen Tissue [...] represents intrapulmonary lymph node. Follow-up is recommended. [facility]-[id number] Procedure Note Hm Interface, Radiology Results Incoming [...] represents intrapulmonary lymph node. Follow-up is recommended. [facility]-[id number] Performing Organization Address City/State/Zipcode Phone Number [facility] [address] [place] [address] Estimated GFR (11/05/2017 6:01 PM CDT) GFR Non Af Amer 73 mL/min/1.73 m2 [facility] DEPARTMENT OF PATHOLOGY AND GENOMIC MEDICINE GFR Af Amer 88 mL/min/1.73 m2 [facility] DEPARTMENT OF Comment: PATHOLOGY AND GENOMIC Chronic [...] Blood Performing Organization Address City/State/Zipcode Phone Number [facility] DEPARTMENT OF PATHOLOGY AND [address] [place] [address] GENOMIC MEDICINE POC creatinine (11/05/2017 6:01 PM CDT) POC creatinine 1.0 0.7 - 1.2 mg/dl [facility] DEPARTMENT OF PATHOLOGY Comment: AND GENOMIC MEDICINE Meter ID: [id number] Prn Occupational Therapist: Duc Lopez Specimen Blood Performing Organization Address City/[facility]/Zipcode Phone Number [facility] DEPARTMENT OF PATHOLOGY AND [address] [place] [address] GENOMIC MEDICINE after 06/17/2017 Insurance Payer Benefit Plan / Group Subscriber ID Type Phone Address MEDICARE MEDICARE PART A AND B xxxxxxxxxx Medicare [place], [place] AETNA AETNA PPO OPEN CHOICE xxxxxxxxx PPO (Home) [address] [place] [id number] Advance Directives Patient has advance care planning documents on file. For more information, please contact:Humphrey Leroy[address] [place] [address]
--- OUTSIDE RECORDS SUMMARY | 2018-06-18 09:11 | XMS REPORT | Clinical Summary ---
:1945 Author Organization [facility] Address [address] [place] [address] Care Team Providers Name Role Phone Nelsy [...] by mouth 0 Active EXTRACT ORAL daily. dudlfsxw-hkjm-kvr-fo Take by mouth 0 Active lic acid daily. (BBSAXDBPMAST-MNDN-N INERALS-FOLIC ACID) 3,500-18-0.4 unit-mg-mg Chew levoFLOXacin Take [...] Pre-Admission Jaime Greene Testing MD Shiraz after 06/17/2017 Immunizations Name Dates Previously Given Next Due [...] in the results section. after 06/17/2017 Results CBC with platelet count + automated diff (11/17/2017 5:10 AM CDT) WBC 10.6 (H) 3.5 - 10.5 K/L [facility] RBC 2.95 (L) 4.63 - 6.08 M/L [facility] Hemoglobin 8.5 (L) 13.7 - 17.5 GM/DL [facility] Hematocrit 26.2 (L) 40.1 - 51.0 % [facility] MCV 88.8 79.0 - 92.2 fL [facility] MCH 28.8 25.7 - 32.2 pg [facility] MCHC 32.4 32.3 - 36.5 GM/DL [facility] RDW 13.9 11.6 - 14.4 % [facility] Platelets 292 150 - 450 K/CU MM [facility] MPV 9.7 9.4 - 12.4 fL [facility] nRBC 0 0 - 0 /100 WBC [facility] % Neutros 92 % [facility] % Lymphs 4 % [facility] % Monos 3 % [facility] % Eos 1 % [facility] % Baso 0 % [facility] # Neutros 9.72 (H) 1.78 - 5.38 K/L [facility] # Lymphs 0.38 (L) 1.32 - 3.57 K/L [facility] # Monos 0.31 0.30 - 0.82 K/L [facility] # Eos 0.07 0.04 - 0.54 K/L [facility] # Baso 0.02 0.01 - 0.08 K/L [facility] Immature Granulocytes-Relative 1 0 - 1 % [facility] Specimen Blood Performing Organization Address City/State/Zipcode Phone Number [address] [phone] CENTER Magnesium (11/17/2017 5:10 AM CDT)Only the most recent of3 resultswithin the time period is included. Magnesium 1.8 1.6 - 2.6 mg/dL [facility] Specimen Blood Performing Organization Address [facility] Phone Number [address] [address] [place] Basic Metabolic Panel (11/17/2017 5:10 AM CDT)Only the most recent of4 resultswithin the time period is included. Sodium 132 (L) 136 - 145 meq/L [facility] Potassium 3.6 3.5 - 5.1 meq/L [facility] Chloride 102 98 - 107 meq/L [facility] CO2 23 22 - 29 meq/L [facility] BUN 19 7 - 21 mg/dL [facility] Creatinine 0.78 0.57 - 1.25 mg/dL [facility] Glucose 87 70 - 105 mg/dL [facility] Calcium 8.4 8.4 - 10.2 mg/dL [facility] EGFR 97Comment: ESTIMATED GFR IS mL/min/1.73 sq m [facility] NOT ACCURATE CREATININE MEDICAL CENTER CLEARANCE IN PREDICTING GLOMERULAR FILTRATION RATE. ESTIMATED GFR IS NOT APPLICABLE FOR DIALYSIS PATIENTS. Specimen Blood Performing Organization Address City/State/[facility] Hospital[facility] Phone Number [facility] [address] [place] [address] CENTER CBC (Hemogram only) (11/16/2017 2:56 AM CDT)Only the most recent of2 resultswithin the time period is included. WBC 15.4 (H) 3.5 - 10.5 K/L [facility] RBC 3.54 (L) 4.63 - 6.08 M/L [facility] Hemoglobin 10.4 (L) 13.7 - 17.5 GM/DL [facility] Hematocrit 31.6 (L) 40.1 - 51.0 % [facility] MCV 89.3 79.0 - 92.2 fL [facility] MCH 29.4 25.7 - 32.2 pg [facility] MCHC 32.9 32.3 - 36.5 GM/DL [facility] RDW 13.7 11.6 - 14.4 % [facility] Platelets 319 150 - 450 K/CU MM [facility] MPV 10.5 9.4 - 12.4 fL [facility] nRBC 0 0 - 0 /100 WBC [facility] Specimen Blood Performing Organization Address City/[facility]/Zipcode Phone Number [facility] [address] [place] [address] CENTER Anaerobic culture (11/14/2017 10:21 AM CDT) Result BACTEROIDES FRAGILIS GROUP (A) [facility] Result BACTEROIDES FRAGILIS GROUP [facility] ()Comment: of a second type MEDICAL CENTER Result PARVIMONAS MICRA (A) [facility] Result PREVOTELLA SPECIES (A) [facility] Specimen Body Fluid - Abdomen Performing Organization Address City/State/Zipcode Phone Number [facility] [address] [place] [address] CENTER Surgically obtained culture + gram stain (11/14/2017 10:21 AM CDT) Result PSEUDOMONAS AERUGINOSA (A) [facility] Result 1+ Enterococcus species (A) [facility] Result STREPTOCOCCUS, VIRIDANS GROUP [facility] () MEDICAL [place] Result 1+ Diphtheroid (A) [facility] Gram Stain Result <1+ WBCs [facility] Gram Stain Result <1+ gram negative rods [facility] Gram Stain Result 2+ gram positive cocci in [facility] Gram Stain Result <1+ gram positive rods [facility] Specimen Body Fluid - Abdomen Organism Antibiotic [...] species Vancomycin 1: Susceptible Performing Organization Address City/[facility]/Zipcode Phone Number [address] [address] [phone] [place] Fungus culture + smear (11/14/2017 10:21 AM CDT) Result ROX ALBICANS (A) [facility] Fungus Smear No fungi seen [facility] Specimen Body Fluid - Abdomen Performing Organization Address City/State/Zipcode Phone Number [address] [address] [place] Tissue Exam (11/14/2017 10:15 AM CDT) Case Report Surgical Pathology Report Case: [id number] LUCIANA CLANCY Authorizing Provider:Jaime Greene MDCollected: 11/14/2017 1015 [facility] Ordering Location: [facility] PERIOPERATIVE Received: 11/14/2017 1019 [place] [facility] Pathologist: Melia De Anda MD Specimens: A) - Abdomen, ABDOMINAL WALL ABCESS AND CANCER B) - Large Intestine, Colon - Right/Ascending, perforated and abcessed C) - Abdomen, Abdominal wall perforated tumor ADDENDUM 2 This addendum is being issued to report the results of additional biomarker testing performed at [place]. [facility] RESULT: [place] - BRAF mutation: DETECTED Please refer to attached scanned report for further results. CPT: 44637 ADDENDUM The addendum is issued to report the results of molecular tests performed at [employer] [facility] MED[facility] RESULTS: CENTER - NRAS MUTATION: NOT DETECTED - KRAS MUTATION: NOT DETECTED - PD-L1 22C3 FDA (KEYTRUDA): NO EXPRESSION - TUMOR PROPORTION SCORE: 0% - INTENSITY: 0 Please see the attached scanned documents for more information. DIAGNOSIS A. 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 - TUMOR EXTENDS [...] IS PRESENT Signing Pathologist Direct Phone Line: [phone] COMMENT According to the operative note LUCIANA CLANCY dated 7/6/18, the tumor is [facility] growing from the colon into the [...] of Rectal Neoplasms(Colon Res - All Specimens) [facility] SPECIMEN Procedure:Right hemicolectomy TUMOR Tumor Site:Right (ascending) [...] ADDITIONAL FINDINGS Additional Pathologic Findings:Adenoma(s) CPT Code(s) 99662 [facility] [address] [facility] [address] [place] [id number] CLINICAL HISTORY Adenoma of ascending colon [facility] SPECIMEN SOURCE A. Abdomen; B. Large intestine, [facility] colon - right/ascending ; C. [facility] Abdomen CENTER GROSS DESCRIPTION The specimen is received in three parts labeled with the patient's name and accession number which corresponds to patient's same name and accession number on accompanying requisition form. [facility] A. Received fresh for intraoperative consultation and [...] between the fibrous and friable areas. A outreach representative section is submitted for frozen evaluation [...] 0.1 to 0.5 cm in greatest dimension. Streetcar Repairer sections are submitted as follows: Ink code: [...] bowel segment without tumor; B5 through B13, outreach representative tumor, including full thickness sections; B14, colon polyp; B15, Streetcar Repairer section grossly norm al mucosa toward proximal margin; B16, outreach representative grossly normal colonic mucosa toward distal of first bowel segment; B17, outreach representative area of transmural defect in second bowel segment; B18, repr esentative grossly normal mucosa of second bowel segment; B19, three candidate lymph nodes, whole; B20, four candidate lymph nodes, whole; B21, four candidate lymph nodes, whole; B22, three candidate ly mph nodes, whole; B23, five candidate lymph nodes, whole; B24, two candidate lymph nodes, whole. B25, outreach representative of tubular structure; B26, radial margin , en face. C. Received in formalin labeled "abdomen tissue" is a 7.8 x 4.2 x 1.6 cm aggregate of alfaro-white to alfaro-yellow fibrous to soft and friable soft tissue. Streetcar Repairer sections are submitted in Cassettes C1 to C3. JY/pl INTRAOPERATIVE FROZEN SECTION DIAGNOSIS: [facility] CONSULTATION AFS, ABDOMINAL WALL: [facility] - ADENOCARCINOMA CENTER These results are verbally reported to OR-[address] Duffy at 10:45 a.m. MICROSCOPIC DESCRIPTION A,C. Performed. [facility] B. IHC testing for all four MMR [...] is incorporated in the diagnostic report above: [facility] The immunohistochemistry test was developed and its performance characteristics determined by [facility], Pathology Laboratory. It has not been cleared or approved by the U.S. Food and [facility] Drug Administration. The FDA has determined that such clearance or approval is not necessary. The test is used for clinical purposes. It should not be regarded as investigational or for research. This [place] laboratory is certified under the Clinical Laboratory Improvement Amendments of 1988 (CLIA-88) as qualified to perform high complexity clinical laboratory testing. Specimen Tissue - Abdomen Narrative Performed At Performing Organization Address City/[facility] Phone Number [address] [address] CENTER TRANSFUSION SERVICE REPORT - SCAN (11/11/2017 6:04 PM CDT) Narrative Performed At Type and screen, automated (11/10/2017 3:30 PM CDT) ABO/RH AUTOMATED (BEAKER) AB POSITIVE [facility] Ab Scrn NEGATIVE [facility] Specimen Blood Performing Organization Address City/[facility]/Zipcode Phone Number [address] [address] Platelet count (11/10/2017 3:30 PM CDT) Platelets 365 150 - 450 K/CU MM [facility] Specimen Blood Performing Organization Address [facility] Hospital[facility] Phone Number [address] [address] CENTER Hemoglobin (11/10/2017 3:30 PM CDT) Hemoglobin 11.2 (L) 13.7 - 17.5 GM/DL [facility] Specimen Blood Performing Organization Address City/State/Zipcode Phone Number [facility] [address] [place] [address] CENTER after 06/17/2017 Insurance Payer Benefit Plan / Group Subscriber ID Type Phone Address MEDICARE MEDICARE A B xxxxxxxxxx Medicare AETNA - MGD CARE AETNA INDEMNITY NON CONTR xxxxxxxxx Comm Advance Directives Patient has advance care planning documents, and code status on file. For more information, please contact:[facility] [place] [address] [phone] Code Status Date Activated Date Inactivated Comments Full Code 11/14/2017 2:10 PM 11/17/2017 5:49 PM This code status was determined by: Patient
--- OUTSIDE RECORDS SUMMARY | 2018-06-18 09:12 | XMS REPORT ---
:1945 [facility] Address [address] [place] [address] [address] Care Team Providers Name Role Phone SHRUTHI GREENE Unavailable Unavailable Problems This patient has no known problems. Allergies, Adverse Reactions, Alerts This patient has no known allergies or adverse reactions. Medications This patient has no known medications. Results Test Description Test Time Test Comments Text Results Atomic Results Result Comments TISSUE EXAM 2018-05-05 18:31:00 Surgical Pathology Report Case: [id number] Authorizing Provider: Shruthi Greene MD Collected: 11/14/2017 1015 Ordering Location: [facility] Received: 11/14/2017 1019 SERVICES Pathologist: Melia De Anda MD Specimens: A) - Abdomen, ABDOMINAL WALL ABCESS AND CANCER B) - Large Intestine, Colon - Right/Ascending, perforated and abcessed C) - Abdomen, Abdominal wall perforated tumor This addendum is being issued to report the results of additional biomarker testing performed at [employer]. RESULT: - BRAF mutation: DETECTED Please refer to attached scanned report for further results. CPT: [id number] electronically signed by Melia De Anda MD on 05/05/2018 at 6:31 PMThe addendum is issued to report the results of molecular tests performed at [facility]. RESULTS: - NRAS MUTATION: NOT DETECTED - [...] IS PRESENT Signing Pathologist Direct Phone Line: [phone] signed by Melia De Anda MD on [...] pN0 ADDITIONAL FINDINGS Additional Pathologic Findings: Adenoma(s) [id number] of ascending colonA. Abdomen; B. Large intestine, [...] between the fibrous and friable areas. A customer response representative section is submitted for frozen evaluation [...] 0.1 to 0.5 cm in greatest dimension. Pet Technologist sections are submitted as follows: Ink code: [...] bowel segment without tumor; B5 through B13, customer response representative tumor, including full thickness sections; B14, colon polyp; B15, Pet Technologist section grossly normal mucosa toward proximal margin; B16, customer response representative grossly normal colonic mucosa toward distal of first bowel segment; B17, customer response representative area of transmural defect in second bowel segment; B18, customer response representative grossly normal mucosa of second bowel segment; B19, three candidate lymph nodes, whole; B20, four candidate lymph nodes, whole; B21, four candidate lymph nodes, whole; B22, three candidate lymph nodes, whole; B23, five candidate lymph nodes, whole; B24, two candidate lymph nodes, whole. B25, customer response representative of tubular structure; B26, radial margin, en face.C. Received in formalin labeled "abdomen tissue" is a 7.8 x 4.2 x 1.6 cm aggregate of alfaro-white to alfaro-yellow fibrous to soft and friable soft tissue. Pet Technologist sections are submitted in Cassettes C1 to [...] developed and its performance characteristics determined by [facility], Pathology Laboratory. It has not been [...] Value Reference Range Comments CULTURE (BEAKER) (test lciv=0519) 1+ Angelica albicans FUNGUS SMEAR (BEAKER) (test srvf=8272) No fungi seen ANAEROBIC [id number] 08:16:00 Test Item Value Reference Range Comments CULTURE (BEAKER) (test ydgd=2867) 3+ Prevotella species SURGICALLY OBTAINED CULTURE + GRAM [id number] 15:35:00 Test Item Value Reference Range Comments CULTURE (BEAKER) (test PSEUDOMONAS 2+ Pseudomonas wozz=0100) AERUGINOSA aeruginosa Amikacin (test code=1) Susceptible 0-16 , Resistant <0 or >16 Aztreonam (test Susceptible 0-8 , code=32) Resistant <0 or >8 Cefepime (test Susceptible 0-8 , code=51) Resistant <0 or >8 Ceftazidime (test Susceptible 0-8 , code=27) Resistant <0 or >8 Ciprofloxacin (test Susceptible 0-1 , code=7) Resistant <0 or >1 Doripenem (test Susceptible 0-2 , gcyq=962) Resistant <0 or >2 Gentamicin (test Susceptible [...] CULTURE (BEAKER) (test ENTEROCOCCUS SPECIES 1+ Enterococcus dtbh=8648) species Ampicillin (test code=26) Linezolid (test code=40) Vancomycin (test code=13) CULTURE (BEAKER) (test 1+ Viridans zgsa=6481) Streptococcus CULTURE (BEAKER) (test 1+ Diphtheroid rdvq=0653) GRAM STAIN RESULT <1+ WBCs (BEAKER) (test prlz=8988) GRAM STAIN RESULT <1+ gram negative (BEAKER) (test rods vslm=318158) GRAM STAIN RESULT 2+ gram positive (BEAKER) (test cocci in pairs tynp=760570) GRAM STAIN RESULT <1+ gram positive (BEAKER) (test rods otzu=660087) [id number] 06:33:00 Test Item Value Reference Range Comments MAGNESIUM (BEAKER) (test rsas=617) 1.8 mg/dL 1.6-2.6 BASIC METABOLIC [id number] 06:33:00 Test Item Value Reference Range Comments SODIUM (BEAKER) (test 132 meq/L 136-145 kkcc=356) POTASSIUM (BEAKER) (test 3.6 meq/L 3.5-5.1 wccd=470) CHLORIDE (BEAKER) (test 102 meq/L 98-107 adry=385) CO2 (BEAKER) (test 23 meq/L 22-29 esyi=052) BLOOD UREA NITROGEN 19 mg/dL 7-21 (BEAKER) (test egax=781) CREATININE (BEAKER) (test 0.78 mg/dL 0.57-1.25 aqap=757) GLUCOSE RANDOM (BEAKER) 87 mg/dL 70-105 (test juuy=402) CALCIUM (BEAKER) (test 8.4 mg/dL 8.4-10.2 fanu=574) EGFR (BEAKER) (test 97 mL/min/1.73 sq m ESTIMATED GFR IS NOT hcfj=1585) ACCURATE CREATININE CLEARANCE IN PREDICTING GLOMERULAR FILTRATION RATE. ESTIMATED GFR IS NOT APPLICABLE FOR DIALYSIS PATIENTS. CBC W/PLT COUNT & AUTO [id number] 05:59:00 Test Item Value Reference Range Comments WHITE BLOOD CELL COUNT (BEAKER) (test exwr=036) 10.6 K/ L 3.5-10.5 RED BLOOD CELL COUNT (BEAKER) (test rpae=890) 2.95 M/ L 4.63-6.08 HEMOGLOBIN (BEAKER) (test rkiu=200) 8.5 GM/DL 13.7-17.5 HEMATOCRIT (BEAKER) (test obuo=007) 26.2 % 40.1-51.0 MEAN CORPUSCULAR VOLUME (BEAKER) (test ncov=190) 88.8 fL 79.0-92.2 MEAN CORPUSCULAR HEMOGLOBIN (BEAKER) (test 28.8 pg 25.7-32.2 lmnd=619) MEAN CORPUSCULAR HEMOGLOBIN CONC (BEAKER) (test 32.4 GM/DL 32.3-36.5 plrd=123) RED CELL DISTRIBUTION WIDTH (BEAKER) (test 13.9 % 11.6-14.4 ckkb=152) PLATELET COUNT (BEAKER) (test ajyl=059) 292 K/CU MM 150-450 MEAN PLATELET VOLUME (BEAKER) (test ilui=830) 9.7 fL 9.4-12.4 NUCLEATED RED BLOOD CELLS (BEAKER) (test 0 /100 WBC 0-0 edsa=352) NEUTROPHILS RELATIVE PERCENT (BEAKER) (test 92 % ahtu=700) LYMPHOCYTES RELATIVE PERCENT (BEAKER) (test 4 % ffak=244) MONOCYTES RELATIVE PERCENT (BEAKER) (test 3 % loja=034) EOSINOPHILS RELATIVE PERCENT (BEAKER) (test 1 % tvbd=836) BASOPHILS RELATIVE PERCENT (BEAKER) (test 0 % acto=086) NEUTROPHILS ABSOLUTE COUNT (BEAKER) (test 9.72 K/ L 1.78-5.38 cfxn=770) LYMPHOCYTES ABSOLUTE COUNT (BEAKER) (test 0.38 K/ L 1.32-3.57 tvnr=809) MONOCYTES ABSOLUTE COUNT (BEAKER) (test 0.31 K/ L 0.30-0.82 ymvm=642) EOSINOPHILS ABSOLUTE COUNT (BEAKER) (test 0.07 K/ L 0.04-0.54 aqfj=419) BASOPHILS ABSOLUTE COUNT (BEAKER) (test 0.02 K/ L 0.01-0.08 lwbh=082) IMMATURE GRANULOCYTES-RELATIVE PERCENT (BEAKER) 1 % 0-1 (test nwnn=3016) [id number] 07:20:00 Test Item Value Reference Range Comments MAGNESIUM (BEAKER) (test ulcn=245) 1.8 mg/dL 1.6-2.6 BASIC METABOLIC [id number] 07:20:00 Test Item Value Reference Range Comments SODIUM (BEAKER) (test 131 meq/L 136-145 eukl=159) POTASSIUM (BEAKER) (test 3.9 meq/L 3.5-5.1 wwdj=912) CHLORIDE (BEAKER) (test 98 meq/L 98-107 xfhy=815) CO2 (BEAKER) (test 26 meq/L 22-29 hlfp=968) BLOOD UREA NITROGEN 26 mg/dL 7-21 (BEAKER) (test qlml=995) CREATININE (BEAKER) (test 1.00 mg/dL 0.57-1.25 vfxa=082) GLUCOSE RANDOM (BEAKER) 116 mg/dL 70-105 (test nkmd=225) CALCIUM (BEAKER) (test 8.9 mg/dL 8.4-10.2 nwwa=678) EGFR (BEAKER) (test 73 mL/min/1.73 sq m ESTIMATED GFR IS NOT purs=6378) ACCURATE CREATININE CLEARANCE IN PREDICTING GLOMERULAR FILTRATION RATE. ESTIMATED GFR IS NOT APPLICABLE FOR DIALYSIS PATIENTS. CBC (HEMOGRAM ONLY)2017-11-16 05:18:00 Test Item Value Reference Range Comments WHITE BLOOD CELL COUNT (BEAKER) (test mump=916) 15.4 K/ L 3.5-10.5 RED BLOOD CELL COUNT (BEAKER) (test cxqx=942) 3.54 M/ L 4.63-6.08 HEMOGLOBIN (BEAKER) (test slfk=350) 10.4 GM/DL 13.7-17.5 HEMATOCRIT (BEAKER) (test wfaf=426) 31.6 % 40.1-51.0 MEAN CORPUSCULAR VOLUME (BEAKER) (test udch=630) 89.3 fL 79.0-92.2 MEAN CORPUSCULAR HEMOGLOBIN (BEAKER) (test 29.4 pg 25.7-32.2 smef=170) MEAN CORPUSCULAR HEMOGLOBIN CONC (BEAKER) (test 32.9 GM/DL 32.3-36.5 bjfg=022) RED CELL DISTRIBUTION WIDTH (BEAKER) (test 13.7 % 11.6-14.4 tfdc=505) PLATELET COUNT (BEAKER) (test jfto=917) 319 K/CU MM 150-450 MEAN PLATELET VOLUME (BEAKER) (test esfl=448) 10.5 fL 9.4-12.4 NUCLEATED RED BLOOD CELLS (BEAKER) (test 0 /100 WBC 0-0 fxka=526) [id number] 06:33:00 Test Item Value Reference Range Comments MAGNESIUM (BEAKER) (test ohxu=407) 1.7 mg/dL 1.6-2.6 BASIC METABOLIC [id number] 06:33:00 Test Item Value Reference Range Comments SODIUM (BEAKER) (test 129 meq/L 136-145 qqho=465) POTASSIUM (BEAKER) (test 3.8 meq/L 3.5-5.1 mldx=528) CHLORIDE (BEAKER) (test 101 meq/L 98-107 tdss=911) CO2 (BEAKER) (test 23 meq/L 22-29 adap=748) BLOOD UREA NITROGEN 27 mg/dL 7-21 (BEAKER) (test ijjj=003) CREATININE (BEAKER) (test 1.11 mg/dL 0.57-1.25 fozj=928) GLUCOSE RANDOM (BEAKER) 113 mg/dL 70-105 (test rfzr=601) CALCIUM (BEAKER) (test 8.3 mg/dL 8.4-10.2 quvl=835) EGFR (BEAKER) (test 65 mL/min/1.73 sq m ESTIMATED GFR IS NOT hwjf=0669) ACCURATE CREATININE CLEARANCE IN PREDICTING GLOMERULAR FILTRATION RATE. ESTIMATED GFR IS NOT APPLICABLE FOR DIALYSIS PATIENTS. CBC (HEMOGRAM ONLY)2017-11-15 05:14:00 Test Item Value Reference Range Comments WHITE BLOOD CELL COUNT (BEAKER) (test knqd=543) 9.5 K/ L 3.5-10.5 RED BLOOD CELL COUNT (BEAKER) (test vquh=586) 3.49 M/ L 4.63-6.08 HEMOGLOBIN (BEAKER) (test lcmy=810) 10.2 GM/DL 13.7-17.5 HEMATOCRIT (BEAKER) (test eqnx=379) 30.7 % 40.1-51.0 MEAN CORPUSCULAR VOLUME (BEAKER) (test eylo=260) 88.0 fL 79.0-92.2 MEAN CORPUSCULAR HEMOGLOBIN (BEAKER) (test 29.2 pg 25.7-32.2 libi=271) MEAN CORPUSCULAR HEMOGLOBIN CONC (BEAKER) (test 33.2 GM/DL 32.3-36.5 xllq=390) RED CELL DISTRIBUTION WIDTH (BEAKER) (test 13.8 % 11.6-14.4 aagq=081) PLATELET COUNT (BEAKER) (test ougg=971) 314 K/CU MM 150-450 MEAN PLATELET VOLUME (BEAKER) (test kupj=631) 9.6 fL 9.4-12.4 NUCLEATED RED BLOOD CELLS (BEAKER) (test 0 /100 WBC 0-0 qkcg=440) BASIC METABOLIC [id number] 16:22:00 Test Item Value Reference Range Comments SODIUM (BEAKER) (test 132 meq/L 136-145 ydkl=927) POTASSIUM (BEAKER) (test 3.9 meq/L 3.5-5.1 rgxm=576) CHLORIDE (BEAKER) (test 96 meq/L 98-107 qckm=387) CO2 (BEAKER) (test 26 meq/L 22-29 aruw=554) BLOOD UREA NITROGEN 30 mg/dL 7-21 (BEAKER) (test vhaj=833) CREATININE (BEAKER) (test 1.09 mg/dL 0.57-1.25 ljcc=190) GLUCOSE RANDOM (BEAKER) 86 mg/dL 70-105 (test ufnp=599) CALCIUM (BEAKER) (test 9.8 mg/dL 8.4-10.2 rdvh=953) EGFR (BEAKER) (test 66 mL/min/1.73 sq m ESTIMATED GFR IS NOT rmws=6981) ACCURATE CREATININE CLEARANCE IN PREDICTING GLOMERULAR FILTRATION RATE. ESTIMATED GFR IS NOT APPLICABLE FOR DIALYSIS PATIENTS. [id number] 15:56:00 Test Item Value Reference Range Comments HEMOGLOBIN (MAY) (test mcza=131) 11.2 GM/DL 13.7-17.5 PLATELET [id number] 15:56:00 Test Item Value Reference Range Comments PLATELET COUNT (MAY) (test qoxp=617) 365 K/CU MM 150-450
--- NOTE | 2018-06-18 09:22 | EKG ---
Test Date: 2018-06-18 Test Time: 08:28:29 Cargo Agent: EMELY MEASUREMENT RESULTS: Intervals: Rate: 62 NM: 178 QRSD: 76 QT: 400 QTc: 406 Creola: P: 75 NM: 178 QRS: 77 T: 79 INTERPRETIVE STATEMENTS: Normal sinus rhythm Normal ECG Compared to ECG 04/17/2018 12:25:18 Sinus bradycardia no longer present Electronically Signed On 06-18-18 09:21:52 IN SERVICE EDUCATION TEACHER by Larry Hassan
[2018-06-18] MEDS ORDERED: Ringers Lactate 1,000 ML IV ONE (09:25)
[2018-06-18] MEDS ORDERED: FENTANYL CITR 100 MCG/2 ML ONE (09:27)
[2018-06-18] MEDS ORDERED: LIDOCAINE 1% MPF 5 ML VIAL ONE (09:27)
[2018-06-18] MEDS ORDERED: PROPOFOL 200 MG/20 ML VIAL IV ONE (09:27)
[2018-06-18] MEDS ORDERED: CLINDAMYCIN INJ 300 MG in NA CHLORIDE 0.9% 50 ML IV ONE (09:30)
--- NOTE | 2018-06-18 09:44 | RAD REPORT ---
EXAM DESCRIPTION: RAD - Chest Pa And Lat (2 Views) - 06/18/2018 9:02 am CLINICAL HISTORY: Preop chest, pending treatment or debridement of dog bite wounds to each hand, luciana or history of colon cancer with ongoing chemotherapy COMPARISON: April 20, 2018 TECHNIQUE: PA and lateral views of the chest were obtained. FINDINGS: The lungs are fibrotic as a baseline. No superimposed failure, infiltrate or mass. Heart size is normal and central vasculature is within normal limits. No pleural effusion or pneumothorax seen. No acute bony finding noted. No aortic abnormality. IMPRESSION: Fibrotic lung pattern similar to comparison. No acute finding.
--- NOTE | 2018-06-18 09:47 | RAD REPORT ---
EXAM DESCRIPTION: RAD - Hand Right 2 View - 06/18/2018 9:41 am CLINICAL HISTORY: Preop examination, debridement or treatment of dog bite wounds to the hand COMPARISON: None. FINDINGS: No fracture is identified. There is no dislocation or periosteal reaction noted. Punctate metallic foreign body is present along the dorsal side base fourth middle phalanx. This is not belie jose to be related to the acute clinical presentation. No significant degenerative change involving the second- fifth IP joints. There is moderate degenerat kirsty change at the IP joint of the thumb with joint space narrowing and marginal spurring. Joint space narrowing changes are present in the first- third MCP joints. No erosive or destructive bone process . Degenerative change involves as well the trapezial first metacarpal articulation. No air or foreign body in the soft tissues otherwise noted. IMPRESSION: No air in the soft tissues. No suspicious soft tissue finding. Degenerative changes are present but no acute bone or joint finding seen.
--- NOTE | 2018-06-18 09:49 | RAD REPORT ---
EXAM DESCRIPTION: RAD - Hand Left 2 View - 06/18/2018 9:41 am CLINICAL HISTORY: Preop examination, pending treatment of dog bite wounds to the hand COMPARISON: None. FINDINGS: No fracture is identified. No bone destructive process identified. There is soft tissue sw elling around the distal fifth digit. No air in the soft tissues. Punctate hyperdensities are present along the dorsal margin of the DIP joint. There is significant degenerative change to the DIP joint of the fifth digit. Mild degenerative change at the IP joint of the thumb. Mild joint space narrowing at the second- fift h PIP joints. There is joint space narrowing at the first and third MCP joints with degenerative potter ge at the trapezium first metacarpal articulation. IMPRESSION: Soft tissue swelling surrounding the distal fifth digit with punctate densities are fore ign bodies along the dorsal margin of the DIP joint. Scattered degenerative change in the hand as detailed. No erosive or destructive process to suspect o steomyelitis.
[2018-06-18] MEDS ORDERED: MEPERIDINE HCL 25 MG/0.5 ML ONE (10:59)
--- NOTE | 2018-06-22 09:02 | OP ---
Surgeon: Kevin Booth MD Preoperative Diagnosis: Dog bite to right and left hand. Postoperative Diagnosis: Dog bite to right and left hand. Procedures Performed: Debridement of skin and subcutaneous tissue of the right hand with simple clos ure of 2.2 cm, debridement of skin and subcutaneous tissue, irrigation of the right little finger DIP joint. Anesthesia: General. Procedure In Detail: After satisfactory induction of general anesthesia, the right and left hands we re prepped with Betadine scrub, Betadine paint, dry sterile drapes were applied in usual manner. Rig ht hand was approached first. Hand placed on [place] table. Tourniquet was inflated. Skin edges ex cised. Then, the wound jet lavaged, irrigated with about 500 cc of dilute Betadine solution. Tourni quet released. Electrocautery used for hemostasis. Wounds were closed with 4-0 Prolene in vertical mattress. Dressed with Xeroform, Kerlix. The left hand approached next. Hand was elevated. Tourni quet was inflated to 250 mmHg. Hand placed on the [place] table. The patient had a laceration over the radial aspect of the DIP joint dorsally. This was probed, was extended towards the joint. The f lap was elevated off the nail plate and over the extensor tendon. The patient had an open joint with the opening on the radial side. Opening was approximately 3 mm in diameter. Cultures were taken. The wound was jet lavaged, irrigated with about 1500 cc of dilute Betadine solution. Tourniquet rele ased. Electrocautery was used for hemostasis. Xeroform placed in the wound, 2-inch Olesya for dressing. Patient tolerated the procedur e well and returned to recovery. MILLA/EMI Voice ID: [id number] Report ID: [id number]
== END 2018-06-18 12:25 | disposition home or self-care (01) ==
LOC: OR 09:06
PROVIDERS: ATTEND Specialist
PROC: 0PDV0ZZ Extraction of Left Finger Phalanx, Open Approach (ICD-10-PCS; 2018-06-18)
PROC: 0JBJ0ZZ Excision of Right Hand Subcutaneous Tissue and Fascia, Open Approach (ICD-10-PCS; principal; 2018-06-18 09:00)
DX: S61.451A Open bite of right hand, initial encounter (principal); S61.257A Open bite of left little finger without damage to nail, initial encounter; W54.0XXA Bitten by dog, initial encounter
CPT/HCPCS: 93005; 87070; 87205; 88304; 87075; 71046; 73120 ×2; 11042; J2704; J3010; J2175; J2001; J2405

== ENCOUNTER 2018-06-25 10:40 | Day surgery (SDC) | payer OTHER ==
--- OUTSIDE RECORDS SUMMARY | 2018-06-25 10:48 | XMS REPORT | Clinical Summary ---
:1945 Author Organization [facility] Address [address] [place] [address] Care Team Providers Name Role Phone Trell [...] part of colon Jaqueline Carballo, (Primary Dx) TYPE COPYIST-C 11/30/2017 Orders Only General Surgery Reginosamy, Malignant neoplasm of Jaqueline Carballo, ascending colon TYPE COPYIST-C (Primary Dx) 11/27/2017 Office Visit General Surgery [...] MD Shiraz ascending colon (Primary Dx) after 06/24/2017 Family History Medical History Relation Name Comments [...] Taken Blood Pressure 165/84 04/16/2018 9:46 AM TIE CARRIER Pulse 67 04/16/2018 9:46 AM TIE CARRIER Temperature 36.8 C (98.2 F) 04/16/2018 9:46 AM TIE CARRIER Respiratory Rate - - Oxygen Saturation - [...] procedure are in the results section. after 06/24/2017 Results Surgical pathology request (11/14/2017) Specimen Tissue [...] represents intrapulmonary lymph node. Follow-up is recommended. [facility]-[id number] Procedure Note Hm Interface, Radiology Results Incoming [...] represents intrapulmonary lymph node. Follow-up is recommended. [facility]-[id number] Performing Organization Address City/State/Zipcode Phone Number [facility] [address] [place] [address] Estimated GFR (11/05/2017 6:01 PM CDT) GFR Non Af Amer 73 mL/min/1.73 m2 [facility] DEPARTMENT OF PATHOLOGY AND GENOMIC MEDICINE GFR Af Amer 88 mL/min/1.73 m2 [facility] DEPARTMENT OF Comment: PATHOLOGY AND GENOMIC [...] Blood Performing Organization Address City/State/Zipcode Phone Number [facility] DEPARTMENT OF PATHOLOGY AND [address] [place] [address] GENOMIC MEDICINE POC creatinine (11/05/2017 6:01 PM CDT) POC creatinine 1.0 0.7 - 1.2 mg/dl [facility] DEPARTMENT OF PATHOLOGY Comment: AND GENOMIC MEDICINE Meter ID: [id number] Fast Brim Pouncer: Duc Lopez Specimen Blood Performing Organization Address City/[facility]/Zipcode Phone Number [facility] DEPARTMENT OF PATHOLOGY AND [address] [place] [address] GENOMIC MEDICINE after 06/24/2017 Insurance Payer Benefit Plan / Group Subscriber ID Type Phone Address MEDICARE MEDICARE PART A AND B xxxxxxxxxx Medicare [place], [place] [employer] PPO OPEN CHOICE xxxxxxxxx PPO (Home) [address] [place] [id number] Advance Directives Patient has advance care planning documents on file. For more information, please contact:Humphrey Leroy[address] [place] [address]
--- OUTSIDE RECORDS SUMMARY | 2018-06-25 10:48 | XMS REPORT | Clinical Summary ---
:1945 Author Organization [facility] Address [address] [place] [address] Care Team Providers Name Role Phone Nelsy [...] by mouth 0 Active EXTRACT ORAL daily. digwdsja-hqkp-oqz-fo Take by mouth 0 Active lic acid daily. (YFIXDXUIJRGA-ZKUN-S INERALS-FOLIC ACID) 3,500-18-0.4 unit-mg-mg Chew levoFLOXacin Take [...] Pre-Admission Jaime Greene Testing MD Shiraz after 06/24/2017 Immunizations Name Dates Previously Given Next Due [...] in the results section. after 06/24/2017 Results CBC with platelet count + automated diff (11/17/2017 5:10 AM CDT) WBC 10.6 (H) 3.5 - 10.5 K/L [facility] RBC 2.95 (L) 4.63 - 6.08 M/L [facility] Hemoglobin 8.5 (L) 13.7 - 17.5 GM/DL [facility] Hematocrit 26.2 (L) 40.1 - 51.0 % [facility] MCV 88.8 79.0 - 92.2 fL [facility] MCH 28.8 25.7 - 32.2 pg [facility] MCHC 32.4 32.3 - 36.5 GM/DL [facility] RDW 13.9 11.6 - 14.4 % [facility] Platelets 292 150 - 450 K/CU MM [facility] MPV 9.7 9.4 - 12.4 fL [facility] nRBC 0 0 - 0 /100 WBC [facility] % Neutros 92 % [facility] % Lymphs 4 % [facility] % Monos 3 % [facility] % Eos 1 % [facility] % Baso 0 % [facility] # Neutros 9.72 (H) 1.78 - 5.38 K/L [facility] # Lymphs 0.38 (L) 1.32 - 3.57 K/L [facility] # Monos 0.31 0.30 - 0.82 K/L [facility] # Eos 0.07 0.04 - 0.54 K/L [facility] # Baso 0.02 0.01 - 0.08 K/L [facility] Immature Granulocytes-Relative 1 0 - 1 % [facility] Specimen Blood Performing Organization Address City/State/Zipcode Phone Number [address] [phone] CENTER Magnesium (11/17/2017 5:10 AM CDT)Only the most recent of3 resultswithin the time period is included. Magnesium 1.8 1.6 - 2.6 mg/dL [facility] Specimen Blood Performing Organization Address [facility] Phone Number [address] [address] [phone] [facility] Basic Metabolic Panel (11/17/2017 5:10 AM CDT)Only the most recent of4 resultswithin the time period is included. Sodium 132 (L) 136 - 145 meq/L [facility] Potassium 3.6 3.5 - 5.1 meq/L [facility] Chloride 102 98 - 107 meq/L [facility] CO2 23 22 - 29 meq/L [facility] BUN 19 7 - 21 mg/dL [facility] Creatinine 0.78 0.57 - 1.25 mg/dL [facility] Glucose 87 70 - 105 mg/dL [facility] Calcium 8.4 8.4 - 10.2 mg/dL [facility] EGFR 97Comment: ESTIMATED GFR IS mL/min/1.73 sq m [facility] NOT ACCURATE CREATININE MEDICAL CENTER CLEARANCE IN PREDICTING GLOMERULAR FILTRATION RATE. ESTIMATED GFR IS NOT APPLICABLE FOR DIALYSIS PATIENTS. Specimen Blood Performing Organization Address City/State/[facility] Phone Number [facility] [address] [place] [address] CENTER CBC (Hemogram only) (11/16/2017 2:56 AM CDT)Only the most recent of2 resultswithin the time period is included. WBC 15.4 (H) 3.5 - 10.5 K/L [facility] RBC 3.54 (L) 4.63 - 6.08 M/L [facility] Hemoglobin 10.4 (L) 13.7 - 17.5 GM/DL [facility] Hematocrit 31.6 (L) 40.1 - 51.0 % [facility] MCV 89.3 79.0 - 92.2 fL [facility] MCH 29.4 25.7 - 32.2 pg [facility] MCHC 32.9 32.3 - 36.5 GM/DL [facility] RDW 13.7 11.6 - 14.4 % [facility] Platelets 319 150 - 450 K/CU MM [facility] MPV 10.5 9.4 - 12.4 fL [facility] nRBC 0 0 - 0 /100 WBC [facility] Specimen Blood Performing Organization Address City/[facility]/Zipcode Phone Number [facility] [address] [place] [address] [phone] CENTER Anaerobic culture (11/14/2017 10:21 AM CDT) Result BACTEROIDES FRAGILIS GROUP (A) [facility] Result BACTEROIDES FRAGILIS GROUP [facility] ()Comment: of a second type MEDICAL CENTER Result PARVIMONAS MICRA (A) [facility] Result PREVOTELLA SPECIES (A) [facility] Specimen Body Fluid - Abdomen Performing Organization Address City/State/Zipcode Phone Number [facility] [address] [place] [address] CENTER Surgically obtained culture + gram stain (11/14/2017 10:21 AM CDT) Result PSEUDOMONAS AERUGINOSA (A) [facility] Result 1+ Enterococcus species (A) [facility] Result STREPTOCOCCUS, VIRIDANS GROUP [facility] () MEDICAL [facility] Result 1+ Diphtheroid (A) [facility] Gram Stain Result <1+ WBCs [facility] Gram Stain Result <1+ gram negative rods [facility] Gram Stain Result 2+ gram positive cocci in [facility] Gram Stain Result <1+ gram positive rods [facility] Specimen Body Fluid - Abdomen Organism Antibiotic [...] species Vancomycin 1: Susceptible Performing Organization Address City/[facility]/Zipcode Phone Number [address] [address] [phone] [facility] Fungus culture + smear (11/14/2017 10:21 AM CDT) Result ROX ALBICANS (A) [facility] Fungus Smear No fungi seen [facility] Specimen Body Fluid - Abdomen Performing Organization Address City/State/Zipcode Phone Number [address] [address] [facility] Tissue Exam (11/14/2017 10:15 AM CDT) Case Report Surgical Pathology Report Case: [id number] LUCIANA CLANCY Authorizing Provider:Jaime Greene MDCollected: 11/14/[address] [facility] Ordering Location: [facility] Received: 11/14/2017 1019 [facility] Pathologist: Melia De Anda MD Specimens: A) - Abdomen, ABDOMINAL WALL ABCESS AND CANCER B) - Large Intestine, Colon - Right/Ascending, perforated and abcessed C) - Abdomen, Abdominal wall perforated tumor ADDENDUM 2 This addendum is being issued to report the results of additional biomarker testing performed at [facility]. [facility] MEDICAL RESULT: [facility] - BRAF mutation: DETECTED Please refer to attached scanned report for further results. CPT: 52941 ADDENDUM The addendum is issued to report the results of molecular tests performed at [facility] MEDICAL RESULTS: CENTER - NRAS MUTATION: NOT DETECTED - KRAS MUTATION: NOT DETECTED - PD-L1 22C3 FDA (KEYTRUDA): NO EXPRESSION - TUMOR PROPORTION SCORE: 0% - INTENSITY: 0 Please see the attached scanned documents for more information. DIAGNOSIS A. 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 growing from the colon into the [...] of Rectal Neoplasms(Colon Res - All Specimens) [facility] SPECIMEN Procedure:Right hemicolectomy TUMOR Tumor Site:Right (ascending) [...] ADDITIONAL FINDINGS Additional Pathologic Findings:Adenoma(s) CPT Code(s) 05722 [facility] [address] [facility] [address] [place] [id number] CLINICAL HISTORY Adenoma of ascending colon [facility] SPECIMEN SOURCE A. Abdomen; B. Large intestine, [facility] colon - right/ascending ; C. [facility] Abdomen CENTER GROSS DESCRIPTION The specimen [...] between the fibrous and friable areas. A civil rights representative section is submitted for frozen evaluation [...] 0.1 to 0.5 cm in greatest dimension. Ham Stripper sections are submitted as follows: Ink code: [...] bowel segment without tumor; B5 through B13, civil rights representative tumor, including full thickness sections; B14, colon polyp; B15, Ham Stripper section grossly norm al mucosa toward proximal margin; B16, civil rights representative grossly normal colonic mucosa toward distal of first bowel segment; B17, civil rights representative area of transmural defect in second bowel segment; B18, repr esentative grossly normal mucosa of second bowel segment; B19, three candidate lymph nodes, whole; B20, four candidate lymph nodes, whole; B21, four candidate lymph nodes, whole; B22, three candidate ly mph nodes, whole; B23, five candidate lymph nodes, whole; B24, two candidate lymph nodes, whole. B25, civil rights representative of tubular structure; B26, radial margin , en face. C. Received in formalin labeled "abdomen tissue" is a 7.8 x 4.2 x 1.6 cm aggregate of alfaro-white to alfaro-yellow fibrous to soft and friable soft tissue. Ham Stripper sections are submitted in Cassettes C1 to C3. JY/pl INTRAOPERATIVE FROZEN SECTION DIAGNOSIS: [facility] CONSULTATION AFS, ABDOMINAL WALL: [facility] - ADENOCARCINOMA CENTER These results are verbally reported to OR-[address] Duffy at 10:45 a.m. MICROSCOPIC DESCRIPTION A,C. Performed. [facility] B. IHC testing for all four MMR [...] is incorporated in the diagnostic report above: [facility] The immunohistochemistry test was developed and its performance characteristics determined by [facility], Pathology Laboratory. It has not been cleared or approved by the U.S. Food and [facility] Drug Administration. The FDA has determined that such clearance or approval is not necessary. The test is used for clinical purposes. It should not be regarded as investigational or for research. This [facility] laboratory is certified under the Clinical Laboratory Improvement Amendments of 1988 (CLIA-88) as qualified to perform high complexity clinical laboratory testing. Specimen Tissue - Abdomen Narrative Performed At Performing Organization Address City/[facility] Phone Number [address] [address] CENTER TRANSFUSION SERVICE REPORT - SCAN (11/11/2017 6:04 PM CDT) Narrative Performed At Type and screen, automated (11/10/2017 3:30 PM CDT) ABO/RH AUTOMATED (BEAKER) AB POSITIVE [facility] Ab Scrn NEGATIVE [facility] Specimen Blood Performing Organization Address City/[facility]/Zipcode Phone Number [address] [address] Platelet count (11/10/2017 3:30 PM CDT) Platelets 365 150 - 450 K/CU MM [facility] Specimen Blood Performing Organization Address [facility] Phone Number [address] [address] CENTER Hemoglobin (11/10/2017 3:30 PM CDT) Hemoglobin 11.2 (L) 13.7 - 17.5 GM/DL [facility] Specimen Blood Performing Organization Address City/State/Zipcode Phone Number [facility] [address] [place] [address] CENTER after 06/24/2017 Insurance Payer Benefit Plan / Group Subscriber ID Type Phone Address MEDICARE MEDICARE A B xxxxxxxxxx Medicare AETNA - MGD CARE AETNA INDEMNITY NON CONTR xxxxxxxxx Comm Advance Directives Patient has advance care planning documents, and code status on file. For more information, please contact:[facility] [place] [address] [phone] Code Status Date Activated Date Inactivated Comments Full Code 11/14/2017 2:10 PM 11/17/2017 5:49 PM This code status was determined by: Patient
--- OUTSIDE RECORDS SUMMARY | 2018-06-25 10:48 | XMS REPORT ---
:1945 [facility] Address [address] [place] [address] [address]. [address] [place] [address] Care Team Providers Name Role Phone SHRUTHI GREENE Unavailable Unavailable Problems This patient has no known problems. Allergies, Adverse Reactions, Alerts This patient has no known allergies or adverse reactions. Medications This patient has no known medications. Results Test Description Test Time Test Comments Text Results Atomic Results Result Comments TISSUE EXAM 2018-05-05 18:31:00 Surgical Pathology Report Case: [id number] Authorizing Provider: Shruthi Greene MD Collected: 11/14/2017 1015 Ordering Location: [facility] Received: 11/14/2017 1019 SERVICES Pathologist: Melia De Anda MD Specimens: A) - Abdomen, ABDOMINAL WALL ABCESS AND CANCER B) - Large Intestine, Colon - Right/Ascending, perforated and abcessed C) - Abdomen, Abdominal wall perforated tumor This addendum is being issued to report the results of additional biomarker testing performed at [facility]. RESULT: - BRAF mutation: DETECTED Please refer to attached scanned report for further results. CPT: [id number] electronically signed by Melia De Anda MD on 05/05/2018 at 6:31 PMThe addendum is issued to report the results of molecular tests performed at [facility]. RESULTS: - NRAS MUTATION: NOT DETECTED - [...] IS PRESENT Signing Pathologist Direct Phone Line: [phone] signed by Melia De Anda MD on [...] pN0 ADDITIONAL FINDINGS Additional Pathologic Findings: Adenoma(s) [id number] of ascending colonA. Abdomen; B. Large intestine, [...] between the fibrous and friable areas. A telephone claims representative section is submitted for frozen evaluation [...] 0.1 to 0.5 cm in greatest dimension. Binder Stripper Hand sections are submitted as follows: Ink code: [...] bowel segment without tumor; B5 through B13, telephone claims representative tumor, including full thickness sections; B14, colon polyp; B15, Binder Stripper Hand section grossly normal mucosa toward proximal margin; B16, telephone claims representative grossly normal colonic mucosa toward distal of first bowel segment; B17, telephone claims representative area of transmural defect in second bowel segment; B18, telephone claims representative grossly normal mucosa of second bowel segment; B19, three candidate lymph nodes, whole; B20, four candidate lymph nodes, whole; B21, four candidate lymph nodes, whole; B22, three candidate lymph nodes, whole; B23, five candidate lymph nodes, whole; B24, two candidate lymph nodes, whole. B25, telephone claims representative of tubular structure; B26, radial margin, en face.C. Received in formalin labeled "abdomen tissue" is a 7.8 x 4.2 x 1.6 cm aggregate of alfaro-white to alfaro-yellow fibrous to soft and friable soft tissue. Binder Stripper Hand sections are submitted in Cassettes C1 to [...] developed and its performance characteristics determined by [facility], Pathology Laboratory. It has not been [...] Value Reference Range Comments CULTURE (BEAKER) (test nkut=1583) 1+ Angelica albicans FUNGUS SMEAR (BEAKER) (test elrw=8006) No fungi seen ANAEROBIC [id number] 08:16:00 Test Item Value Reference Range Comments CULTURE (BEAKER) (test qaal=7185) 3+ Prevotella species SURGICALLY OBTAINED CULTURE + GRAM [id number] 15:35:00 Test Item Value Reference Range Comments CULTURE (BEAKER) (test PSEUDOMONAS 2+ Pseudomonas wwaf=5998) AERUGINOSA aeruginosa Amikacin (test code=1) Susceptible 0-16 , Resistant <0 or >16 Aztreonam (test Susceptible 0-8 , code=32) Resistant <0 or >8 Cefepime (test Susceptible 0-8 , code=51) Resistant <0 or >8 Ceftazidime (test Susceptible 0-8 , code=27) Resistant <0 or >8 Ciprofloxacin (test Susceptible 0-1 , code=7) Resistant <0 or >1 Doripenem (test Susceptible 0-2 , ppaq=782) Resistant <0 or >2 Gentamicin (test Susceptible [...] CULTURE (BEAKER) (test ENTEROCOCCUS SPECIES 1+ Enterococcus dwdc=7852) species Ampicillin (test code=26) Linezolid (test code=40) Vancomycin (test code=13) CULTURE (BEAKER) (test 1+ Viridans upqu=9885) Streptococcus CULTURE (BEAKER) (test 1+ Diphtheroid jrim=7503) GRAM STAIN RESULT <1+ WBCs (BEAKER) (test qhec=0896) GRAM STAIN RESULT <1+ gram negative (BEAKER) (test rods cloa=477467) GRAM STAIN RESULT 2+ gram positive (BEAKER) (test cocci in pairs svek=204664) GRAM STAIN RESULT <1+ gram positive (BEAKER) (test rods xpom=770562) [id number] 06:33:00 Test Item Value Reference Range Comments MAGNESIUM (BEAKER) (test cmwa=538) 1.8 mg/dL 1.6-2.6 BASIC METABOLIC [id number] 06:33:00 Test Item Value Reference Range Comments SODIUM (BEAKER) (test 132 meq/L 136-145 sszy=962) POTASSIUM (BEAKER) (test 3.6 meq/L 3.5-5.1 nvjs=855) CHLORIDE (BEAKER) (test 102 meq/L 98-107 qixp=438) CO2 (BEAKER) (test 23 meq/L 22-29 igwj=282) BLOOD UREA NITROGEN 19 mg/dL 7-21 (BEAKER) (test pfzl=017) CREATININE (BEAKER) (test 0.78 mg/dL 0.57-1.25 yfyg=102) GLUCOSE RANDOM (BEAKER) 87 mg/dL 70-105 (test gvxp=986) CALCIUM (BEAKER) (test 8.4 mg/dL 8.4-10.2 pzep=104) EGFR (BEAKER) (test 97 mL/min/1.73 sq m ESTIMATED GFR IS NOT nmiw=6521) ACCURATE CREATININE CLEARANCE IN PREDICTING GLOMERULAR FILTRATION RATE. ESTIMATED GFR IS NOT APPLICABLE FOR DIALYSIS PATIENTS. CBC W/PLT COUNT & AUTO [id number] 05:59:00 Test Item Value Reference Range Comments WHITE BLOOD CELL COUNT (BEAKER) (test lfdv=569) 10.6 K/ L 3.5-10.5 RED BLOOD CELL COUNT (BEAKER) (test awhc=958) 2.95 M/ L 4.63-6.08 HEMOGLOBIN (BEAKER) (test jmky=008) 8.5 GM/DL 13.7-17.5 HEMATOCRIT (BEAKER) (test vuzx=836) 26.2 % 40.1-51.0 MEAN CORPUSCULAR VOLUME (BEAKER) (test wtiz=871) 88.8 fL 79.0-92.2 MEAN CORPUSCULAR HEMOGLOBIN (BEAKER) (test 28.8 pg 25.7-32.2 dcwc=231) MEAN CORPUSCULAR HEMOGLOBIN CONC (BEAKER) (test 32.4 GM/DL 32.3-36.5 vmwv=680) RED CELL DISTRIBUTION WIDTH (BEAKER) (test 13.9 % 11.6-14.4 efgt=725) PLATELET COUNT (BEAKER) (test fvqu=090) 292 K/CU MM 150-450 MEAN PLATELET VOLUME (BEAKER) (test fymp=198) 9.7 fL 9.4-12.4 NUCLEATED RED BLOOD CELLS (BEAKER) (test 0 /100 WBC 0-0 hgse=650) NEUTROPHILS RELATIVE PERCENT (BEAKER) (test 92 % ylft=827) LYMPHOCYTES RELATIVE PERCENT (BEAKER) (test 4 % jgad=453) MONOCYTES RELATIVE PERCENT (BEAKER) (test 3 % slgn=647) EOSINOPHILS RELATIVE PERCENT (BEAKER) (test 1 % osqo=840) BASOPHILS RELATIVE PERCENT (BEAKER) (test 0 % oklo=361) NEUTROPHILS ABSOLUTE COUNT (BEAKER) (test 9.72 K/ L 1.78-5.38 xlhn=994) LYMPHOCYTES ABSOLUTE COUNT (BEAKER) (test 0.38 K/ L 1.32-3.57 sqsd=924) MONOCYTES ABSOLUTE COUNT (BEAKER) (test 0.31 K/ L 0.30-0.82 fotf=814) EOSINOPHILS ABSOLUTE COUNT (BEAKER) (test 0.07 K/ L 0.04-0.54 icpx=516) BASOPHILS ABSOLUTE COUNT (BEAKER) (test 0.02 K/ L 0.01-0.08 jolb=179) IMMATURE GRANULOCYTES-RELATIVE PERCENT (BEAKER) 1 % 0-1 (test ymvz=9136) [id number] 07:20:00 Test Item Value Reference Range Comments MAGNESIUM (BEAKER) (test wrvp=856) 1.8 mg/dL 1.6-2.6 BASIC METABOLIC [id number] 07:20:00 Test Item Value Reference Range Comments SODIUM (BEAKER) (test 131 meq/L 136-145 vmsd=335) POTASSIUM (BEAKER) (test 3.9 meq/L 3.5-5.1 yxgc=470) CHLORIDE (BEAKER) (test 98 meq/L 98-107 agwm=452) CO2 (BEAKER) (test 26 meq/L 22-29 jxht=353) BLOOD UREA NITROGEN 26 mg/dL 7-21 (BEAKER) (test blnp=877) CREATININE (BEAKER) (test 1.00 mg/dL 0.57-1.25 ayct=213) GLUCOSE RANDOM (BEAKER) 116 mg/dL 70-105 (test uhsh=402) CALCIUM (BEAKER) (test 8.9 mg/dL 8.4-10.2 xyau=667) EGFR (BEAKER) (test 73 mL/min/1.73 sq m ESTIMATED GFR IS NOT rqvp=8140) ACCURATE CREATININE CLEARANCE IN PREDICTING GLOMERULAR FILTRATION RATE. ESTIMATED GFR IS NOT APPLICABLE FOR DIALYSIS PATIENTS. CBC (HEMOGRAM ONLY)2017-11-16 05:18:00 Test Item Value Reference Range Comments WHITE BLOOD CELL COUNT (BEAKER) (test zaqp=909) 15.4 K/ L 3.5-10.5 RED BLOOD CELL COUNT (BEAKER) (test iyqr=950) 3.54 M/ L 4.63-6.08 HEMOGLOBIN (BEAKER) (test asdx=950) 10.4 GM/DL 13.7-17.5 HEMATOCRIT (BEAKER) (test vvcj=030) 31.6 % 40.1-51.0 MEAN CORPUSCULAR VOLUME (BEAKER) (test yvam=500) 89.3 fL 79.0-92.2 MEAN CORPUSCULAR HEMOGLOBIN (BEAKER) (test 29.4 pg 25.7-32.2 altz=639) MEAN CORPUSCULAR HEMOGLOBIN CONC (BEAKER) (test 32.9 GM/DL 32.3-36.5 rbze=733) RED CELL DISTRIBUTION WIDTH (BEAKER) (test 13.7 % 11.6-14.4 lich=526) PLATELET COUNT (BEAKER) (test mdqh=322) 319 K/CU MM 150-450 MEAN PLATELET VOLUME (BEAKER) (test chlt=679) 10.5 fL 9.4-12.4 NUCLEATED RED BLOOD CELLS (BEAKER) (test 0 /100 WBC 0-0 cmcl=476) [id number] 06:33:00 Test Item Value Reference Range Comments MAGNESIUM (BEAKER) (test dmsy=816) 1.7 mg/dL 1.6-2.6 BASIC METABOLIC [id number] 06:33:00 Test Item Value Reference Range Comments SODIUM (BEAKER) (test 129 meq/L 136-145 afkk=913) POTASSIUM (BEAKER) (test 3.8 meq/L 3.5-5.1 luzb=480) CHLORIDE (BEAKER) (test 101 meq/L 98-107 jfyy=900) CO2 (BEAKER) (test 23 meq/L 22-29 tzwk=644) BLOOD UREA NITROGEN 27 mg/dL 7-21 (BEAKER) (test ebtm=862) CREATININE (BEAKER) (test 1.11 mg/dL 0.57-1.25 xqzz=828) GLUCOSE RANDOM (BEAKER) 113 mg/dL 70-105 (test dfbq=586) CALCIUM (BEAKER) (test 8.3 mg/dL 8.4-10.2 kobr=354) EGFR (BEAKER) (test 65 mL/min/1.73 sq m ESTIMATED GFR IS NOT kmlx=8620) ACCURATE CREATININE CLEARANCE IN PREDICTING GLOMERULAR FILTRATION RATE. ESTIMATED GFR IS NOT APPLICABLE FOR DIALYSIS PATIENTS. CBC (HEMOGRAM ONLY)2017-11-15 05:14:00 Test Item Value Reference Range Comments WHITE BLOOD CELL COUNT (BEAKER) (test dzuh=973) 9.5 K/ L 3.5-10.5 RED BLOOD CELL COUNT (BEAKER) (test bdqr=363) 3.49 M/ L 4.63-6.08 HEMOGLOBIN (BEAKER) (test hecz=638) 10.2 GM/DL 13.7-17.5 HEMATOCRIT (BEAKER) (test njgv=106) 30.7 % 40.1-51.0 MEAN CORPUSCULAR VOLUME (BEAKER) (test szvx=524) 88.0 fL 79.0-92.2 MEAN CORPUSCULAR HEMOGLOBIN (BEAKER) (test 29.2 pg 25.7-32.2 hqrh=288) MEAN CORPUSCULAR HEMOGLOBIN CONC (BEAKER) (test 33.2 GM/DL 32.3-36.5 uvnc=763) RED CELL DISTRIBUTION WIDTH (BEAKER) (test 13.8 % 11.6-14.4 lkhh=389) PLATELET COUNT (BEAKER) (test pmjl=554) 314 K/CU MM 150-450 MEAN PLATELET VOLUME (BEAKER) (test isbl=061) 9.6 fL 9.4-12.4 NUCLEATED RED BLOOD CELLS (BEAKER) (test 0 /100 WBC 0-0 xiko=882) BASIC METABOLIC [id number] 16:22:00 Test Item Value Reference Range Comments SODIUM (BEAKER) (test 132 meq/L 136-145 hlrl=248) POTASSIUM (BEAKER) (test 3.9 meq/L 3.5-5.1 ider=610) CHLORIDE (BEAKER) (test 96 meq/L 98-107 audn=968) CO2 (BEAKER) (test 26 meq/L 22-29 ocpn=101) BLOOD UREA NITROGEN 30 mg/dL 7-21 (BEAKER) (test vcav=377) CREATININE (BEAKER) (test 1.09 mg/dL 0.57-1.25 dzal=987) GLUCOSE RANDOM (BEAKER) 86 mg/dL 70-105 (test ztuh=891) CALCIUM (BEAKER) (test 9.8 mg/dL 8.4-10.2 diun=946) EGFR (MAY) (test 66 mL/min/1.73 sq m ESTIMATED GFR IS NOT rufh=6088) ACCURATE CREATININE CLEARANCE IN PREDICTING GLOMERULAR FILTRATION RATE. ESTIMATED GFR IS NOT APPLICABLE FOR DIALYSIS PATIENTS. [id number] 15:56:00 Test Item Value Reference Range Comments HEMOGLOBIN (MAY) (test soos=972) 11.2 GM/DL 13.7-17.5 PLATELET [id number] 15:56:00 Test Item Value Reference Range Comments PLATELET COUNT (MAY) (test pgny=210) 365 K/CU MM 150-450
[2018-06-25] MEDS ORDERED: CLINDAMYCIN INJ 300 MG in NA CHLORIDE 0.9% 50 ML IV ONE (11:00)
[2018-06-25] MEDS ORDERED: Ringers Lactate 1,000 ML IV ONE (11:09)
[2018-06-25] MEDS ORDERED: LIDOCAINE 2% MPF 5 ML VIAL ONE (12:23)
[2018-06-25] MEDS ORDERED: FENTANYL CITR 100 MCG/2 ML ONE (12:23)
[2018-06-25] MEDS ORDERED: PROPOFOL 200 MG/20 ML VIAL IV ONE (12:23)
[2018-06-25] MEDS ORDERED: MIDAZOLAM HCL 2 MG/2 ML INJ ONE (12:23)
[2018-06-25] MEDS ORDERED: ONDANSETRON 4 MG/2 ML VIAL ONE (12:23)
[2018-06-25] MEDS ORDERED: EPHEDRINE SULF 50 MG/10 ML SYR ONE (13:09)
--- NOTE | 2018-06-26 07:45 | OP ---
Surgeon: Kevin Booth MD Preoperative Diagnosis: Open wound of the left little finger. Postoperative Diagnosis: Open wound of the left little finger. Procedure Performed: Debridement of skin and subcutaneous tissue, simple closure 2.5 cm wound. Anesthesia: General. Procedure In Detail: After satisfactory induction of general anesthesia, the right hand was prepped with Betadine scrub and Betadine paint, and dry sterile drapes were applied in usual manner. The arm was elevated, exsanguinated with Esmarch, and tourniquet was inflated to 250 mmHg. Tenotomy scissor s, forceps, curette were used to debride skin and subcutaneous tissue. The wound was jet lavaged, ir rigated with 3 L of dilute Betadine solution. Wound was closed with horizontal mattress of 4-0 Prole ne tourniquet was released. Dressings consisted of Xeroform, 2-inch Olesya. The patient t olerated the procedure well and returned to recovery. MILLA/EMI Voice ID: [id number] Report ID: [id number]
== END 2018-06-25 14:25 | disposition home or self-care (01) ==
LOC: OR 10:40
PROVIDERS: ATTEND Specialist
PROC: 0JQK0ZZ Repair Left Hand Subcutaneous Tissue and Fascia, Open Approach (ICD-10-PCS; 2018-06-25)
PROC: 0JBK0ZZ Excision of Left Hand Subcutaneous Tissue and Fascia, Open Approach (ICD-10-PCS; principal; 2018-06-25 11:45)
DX: S61.207A Unspecified open wound of left little finger without damage to nail, initial encounter (principal); W54.0XXA Bitten by dog, initial encounter
CPT/HCPCS: 11042; 12001; J2250; J2405; J2704; J3010

== ENCOUNTER 2018-10-08 22:08 | Inpatient (IN) | payer OTHER ==
--- OUTSIDE RECORDS SUMMARY | 2018-10-08 22:11 | XMS REPORT | Clinical Summary ---
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 Temperature 36.8 C (98.2 F) 04/16/2018 9: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 after 10/07/2017 Results Surgical pathology request (11/14/2017) Specimen Tissue Narrative Performed At CT Chest W Contrast (11/05/2017 6:30 PM CDT) Specimen Narrative Performed At CT CHEST W CONTRAST [...] represents intrapulmonary lymph node. Follow-up is recommended. [facility]-[id number] Procedure Note Hm Interface, Radiology Results Incoming [...] Lymph nodes: No pathological adenopathy in the jsutyn, axilla or mediastinum. Chest wall: Unremarkable. Bones: Mild degenerative changes. Upper abdomen: Right renal cyst measuring 2.4 cm. Small hiatal hernia.. IMPRESSION: Right lower lobe perifissural nodule (4 mm) is indeterminate though possibly represents intrapulmonary lymph node. Follow-up is recommended. [facility]-[id number] Performing Organization Address City/State/Zipcode Phone Number [facility] [address] [place] [address] Estimated GFR (11/05/2017 6:01 PM CDT) GFR Non Af Amer 73 mL/min/1.73 [facility] DEPARTMENT OF m2 PATHOLOGY AND GENOMIC MEDICINE GFR Af Amer 88 mL/min/1.73 [facility] DEPARTMENT OF Comment: m2 PATHOLOGY AND Chronic kidney disease: <60 mL/min/1.73m2 GENOMIC MEDICINE Kidney failure: <15 mL/min/1.73m2 The estimated [...] Blood Performing Organization Address City/State/Zipcode Phone Number [facility] DEPARTMENT OF PATHOLOGY AND [address] [place] [address] GENOMIC MEDICINE POC creatinine (11/05/2017 6:01 PM CDT) POC creatinine 1.0 0.7 - 1.2 [facility] DEPARTMENT OF Comment: mg/dl PATHOLOGY AND Meter ID: [id number] GENOMIC MEDICINE Chopper Gun Operator: Duc Lopez Specimen Blood Performing Organization Address City/State/Zipcode Phone Number [facility] DEPARTMENT OF PATHOLOGY AND [address] [place] [address] GENOMIC MEDICINE after 10/07/2017 Insurance Payer Benefit Plan / Subscriber ID Effective Dates Phone Address Type Group MEDICARE MEDICARE PART A xxxxxxxxxx 2008-Present [place], [place] Medicare AND B AETNA AETNA PPO OPEN xxxxxxxxx 2000-Present [address] ([address] [place] [id number] Advance Directives Patient has advance care planning documents on file. For more information, please contact:[facility] [address] [place] [address]
--- OUTSIDE RECORDS SUMMARY | 2018-10-08 22:12 | XMS REPORT ---
:1945 Author [facility] Address [address] [place] [address] [address] [place] [address] Care Team Providers Name Role Phone SHRUTHI GREENE Unavailable Unavailable Problems This patient has no known problems. Allergies, Adverse Reactions, Alerts This patient has no known allergies or adverse reactions. Medications This patient has no known medications. Results Test Description Test Time Test Comments Text Results Atomic Results Result Comments TISSUE EXAM 2018-05-05 18:31:00 Surgical Pathology Report Case: [id number] Authorizing Provider: Shruthi Greene MD Collected: 11/14/2017 1015 Ordering Location: [facility] PERIOPERATIVE Received: 11/14/2017 1019 SERVICES Pathologist: Melia De Anda MD Specimens: A) - Abdomen, ABDOMINAL WALL ABCESS AND CANCER B) - Large Intestine, Colon - Right/Ascending, perforated and abcessed C) - Abdomen, Abdominal wall perforated tumor This addendum is being issued to report the results of additional biomarker testing performed at [facility]. RESULT: - BRAF mutation: DETECTED Please refer to attached scanned report for further results. CPT: 20487Diqxwrhy electronically signed by Melia De Anda MD on 05/05/2018 at 6:31 PMThe addendum is issued to report the results of molecular tests performed at [facility]. RESULTS: - NRAS MUTATION: NOT DETECTED - [...] IS PRESENT Signing Pathologist Direct Phone Line: [phone] signed by Melia De Anda MD on [...] pN0 ADDITIONAL FINDINGS Additional Pathologic Findings: Adenoma(s) [id number] of ascending colonA. Abdomen; B. Large intestine, [...] between the fibrous and friable areas. A medical center representative section is submitted for frozen evaluation [...] 0.1 to 0.5 cm in greatest dimension. Ne[employer] Electrician sections are submitted as follows: Ink code: [...] bowel segment without tumor; B5 through B13, medical center representative tumor, including full thickness sections; B14, colon polyp; B15, Neon Electrician section grossly normal mucosa toward proximal margin; B16, medical center representative grossly normal colonic mucosa toward distal of first bowel segment; B17, medical center representative area of transmural defect in second bowel segment; B18, medical center representative grossly normal mucosa of second bowel segment; B19, three candidate lymph nodes, whole; B20, four candidate lymph nodes, whole; B21, four candidate lymph nodes, whole; B22, three candidate lymph nodes, whole; B23, five candidate lymph nodes, whole; B24, two candidate lymph nodes, whole. B25, medical center representative of tubular structure; B26, radial margin, en face.C. Received in formalin labeled "abdomen tissue" is a 7.8 x 4.2 x 1.6 cm aggregate of alfaro-white to alfaro-yellow fibrous to soft and friable soft tissue. Neon Electrician sections are submitted in Cassettes C1 to [...] developed and its performance characteristics determined by [facility], Pathology Laboratory. It has not [...] Test Item Value Reference Range Comments CULTURE (Ultius) (test jhul=1928) 1+ Angelica albicans FUNGUS SMEAR (Joyme.comAKER) (test cpyi=8222) No fungi seen ANAEROBIC [id number] 08:16:00 Test Item Value Reference Range Comments CULTURE (BEAKER) (test ubsw=4395) 3+ Prevotella species SURGICALLY OBTAINED CULTURE + GRAM [id number] 15:35:00 Test Item Value Reference Range Comments CULTURE (BEAKER) (test PSEUDOMONAS 2+ Pseudomonas wxor=4620) AERUGINOSA aeruginosa Amikacin (test code=1) Susceptible 0-16 , Resistant <0 or >16 Aztreonam (test Susceptible 0-8 , code=32) Resistant <0 or >8 Cefepime (test Susceptible 0-8 , code=51) Resistant <0 or >8 Ceftazidime (test Susceptible 0-8 , code=27) Resistant <0 or >8 Ciprofloxacin (test Susceptible 0-1 , code=7) Resistant <0 or >1 Doripenem (test Susceptible 0-2 , kwqn=060) Resistant <0 or >2 Gentamicin (test Susceptible [...] CULTURE (BEAKER) (test ENTEROCOCCUS SPECIES 1+ Enterococcus sout=5815) species Ampicillin (test code=26) Linezolid (test code=40) Vancomycin (test code=13) CULTURE (BEAKER) (test 1+ Viridans fhvi=3153) Streptococcus CULTURE (BEAKER) (test 1+ Diphtheroid yoyt=1196) GRAM STAIN RESULT <1+ WBCs (BEAKER) (test mziv=8736) GRAM STAIN RESULT <1+ gram negative (BEAKER) (test rods fieg=148293) GRAM STAIN RESULT 2+ gram positive (BEAKER) (test cocci in pairs zhjy=110865) GRAM STAIN RESULT <1+ gram positive (BEAKER) (test rods cwuk=733649) [id number] 06:33:00 Test Item Value Reference Range Comments MAGNESIUM (BEAKER) (test omgz=291) 1.8 mg/dL 1.6-2.6 BASIC METABOLIC [id number] 06:33:00 Test Item Value Reference Range Comments SODIUM (BEAKER) (test 132 meq/L 136-145 zvbk=933) POTASSIUM (BEAKER) (test 3.6 meq/L 3.5-5.1 ivpm=459) CHLORIDE (BEAKER) (test 102 meq/L 98-107 onfc=993) CO2 (BEAKER) (test 23 meq/L 22-29 huyz=904) BLOOD UREA NITROGEN 19 mg/dL 7-21 (BEAKER) (test lbvv=311) CREATININE (BEAKER) (test 0.78 mg/dL 0.57-1.25 link=617) GLUCOSE RANDOM (BEAKER) 87 mg/dL 70-105 (test eszi=042) CALCIUM (BEAKER) (test 8.4 mg/dL 8.4-10.2 sbsj=235) EGFR (BEAKER) (test 97 mL/min/1.73 sq m ESTIMATED GFR IS NOT kcvv=1043) ACCURATE CREATININE CLEARANCE IN PREDICTING GLOMERULAR FILTRATION RATE. ESTIMATED GFR IS NOT APPLICABLE FOR DIALYSIS PATIENTS. CBC W/PLT COUNT & AUTO [id number] 05:59:00 Test Item Value Reference Range Comments WHITE BLOOD CELL COUNT (BEAKER) (test vdrb=753) 10.6 K/ L 3.5-10.5 RED BLOOD CELL COUNT (BEAKER) (test lrka=061) 2.95 M/ L 4.63-6.08 HEMOGLOBIN (BEAKER) (test hsom=640) 8.5 GM/DL 13.7-17.5 HEMATOCRIT (BEAKER) (test hfuw=575) 26.2 % 40.1-51.0 MEAN CORPUSCULAR VOLUME (BEAKER) (test pgaa=628) 88.8 fL 79.0-92.2 MEAN CORPUSCULAR HEMOGLOBIN (BEAKER) (test 28.8 pg 25.7-32.2 wsbg=841) MEAN CORPUSCULAR HEMOGLOBIN CONC (BEAKER) (test 32.4 GM/DL 32.3-36.5 dsje=616) RED CELL DISTRIBUTION WIDTH (BEAKER) (test 13.9 % 11.6-14.4 swio=554) PLATELET COUNT (BEAKER) (test jrip=865) 292 K/CU MM 150-450 MEAN PLATELET VOLUME (BEAKER) (test xrwv=319) 9.7 fL 9.4-12.4 NUCLEATED RED BLOOD CELLS (BEAKER) (test 0 /100 WBC 0-0 llim=365) NEUTROPHILS RELATIVE PERCENT (BEAKER) (test 92 % sqgy=042) LYMPHOCYTES RELATIVE PERCENT (BEAKER) (test 4 % gxcp=347) MONOCYTES RELATIVE PERCENT (BEAKER) (test 3 % kzum=874) EOSINOPHILS RELATIVE PERCENT (BEAKER) (test 1 % itqr=800) BASOPHILS RELATIVE PERCENT (BEAKER) (test 0 % hxsk=080) NEUTROPHILS ABSOLUTE COUNT (BEAKER) (test 9.72 K/ L 1.78-5.38 mjsp=282) LYMPHOCYTES ABSOLUTE COUNT (BEAKER) (test 0.38 K/ L 1.32-3.57 pzov=689) MONOCYTES ABSOLUTE COUNT (BEAKER) (test 0.31 K/ L 0.30-0.82 geyp=952) EOSINOPHILS ABSOLUTE COUNT (BEAKER) (test 0.07 K/ L 0.04-0.54 ljld=444) BASOPHILS ABSOLUTE COUNT (BEAKER) (test 0.02 K/ L 0.01-0.08 khxp=877) IMMATURE GRANULOCYTES-RELATIVE PERCENT (BEAKER) 1 % 0-1 (test huwh=6812) [id number] 07:20:00 Test Item Value Reference Range Comments MAGNESIUM (BEAKER) (test dkyz=169) 1.8 mg/dL 1.6-2.6 BASIC METABOLIC [id number] 07:20:00 Test Item Value Reference Range Comments SODIUM (BEAKER) (test 131 meq/L 136-145 epyz=727) POTASSIUM (BEAKER) (test 3.9 meq/L 3.5-5.1 zups=779) CHLORIDE (BEAKER) (test 98 meq/L 98-107 rbcm=045) CO2 (BEAKER) (test 26 meq/L 22-29 kbfj=992) BLOOD UREA NITROGEN 26 mg/dL 7-21 (BEAKER) (test aarf=120) CREATININE (BEAKER) (test 1.00 mg/dL 0.57-1.25 oyis=602) GLUCOSE RANDOM (BEAKER) 116 mg/dL 70-105 (test ugoz=285) CALCIUM (BEAKER) (test 8.9 mg/dL 8.4-10.2 ktqq=193) EGFR (BEAKER) (test 73 mL/min/1.73 sq m ESTIMATED GFR IS NOT sxvt=0535) ACCURATE CREATININE CLEARANCE IN PREDICTING GLOMERULAR FILTRATION RATE. ESTIMATED GFR IS NOT APPLICABLE FOR DIALYSIS PATIENTS. CBC (HEMOGRAM ONLY)2017-11-16 05:18:00 Test Item Value Reference Range Comments WHITE BLOOD CELL COUNT (BEAKER) (test katr=518) 15.4 K/ L 3.5-10.5 RED BLOOD CELL COUNT (BEAKER) (test vwbv=469) 3.54 M/ L 4.63-6.08 HEMOGLOBIN (BEAKER) (test fmbz=744) 10.4 GM/DL 13.7-17.5 HEMATOCRIT (BEAKER) (test nies=151) 31.6 % 40.1-51.0 MEAN CORPUSCULAR VOLUME (BEAKER) (test gjle=006) 89.3 fL 79.0-92.2 MEAN CORPUSCULAR HEMOGLOBIN (BEAKER) (test 29.4 pg 25.7-32.2 mbjo=969) MEAN CORPUSCULAR HEMOGLOBIN CONC (BEAKER) (test 32.9 GM/DL 32.3-36.5 bugf=115) RED CELL DISTRIBUTION WIDTH (BEAKER) (test 13.7 % 11.6-14.4 stfo=487) PLATELET COUNT (BEAKER) (test nfcb=062) 319 K/CU MM 150-450 MEAN PLATELET VOLUME (BEAKER) (test kttg=994) 10.5 fL 9.4-12.4 NUCLEATED RED BLOOD CELLS (BEAKER) (test 0 /100 WBC 0-0 ccuq=160) [id number] 06:33:00 Test Item Value Reference Range Comments MAGNESIUM (BEAKER) (test kuji=429) 1.7 mg/dL 1.6-2.6 BASIC METABOLIC [id number] 06:33:00 Test Item Value Reference Range Comments SODIUM (BEAKER) (test 129 meq/L 136-145 yhen=777) POTASSIUM (BEAKER) (test 3.8 meq/L 3.5-5.1 lflr=719) CHLORIDE (BEAKER) (test 101 meq/L 98-107 qbkd=759) CO2 (BEAKER) (test 23 meq/L 22-29 kzau=131) BLOOD UREA NITROGEN 27 mg/dL 7-21 (BEAKER) (test xkox=833) CREATININE (BEAKER) (test 1.11 mg/dL 0.57-1.25 ghwu=851) GLUCOSE RANDOM (BEAKER) 113 mg/dL 70-105 (test vgpp=854) CALCIUM (BEAKER) (test 8.3 mg/dL 8.4-10.2 whbu=869) EGFR (BEAKER) (test 65 mL/min/1.73 sq m ESTIMATED GFR IS NOT dcvx=3840) ACCURATE CREATININE CLEARANCE IN PREDICTING GLOMERULAR FILTRATION RATE. ESTIMATED GFR IS NOT APPLICABLE FOR DIALYSIS PATIENTS. CBC (HEMOGRAM ONLY)2017-11-15 05:14:00 Test Item Value Reference Range Comments WHITE BLOOD CELL COUNT (BEAKER) (test xcan=268) 9.5 K/ L 3.5-10.5 RED BLOOD CELL COUNT (BEAKER) (test vsrk=305) 3.49 M/ L 4.63-6.08 HEMOGLOBIN (BEAKER) (test qrdo=781) 10.2 GM/DL 13.7-17.5 HEMATOCRIT (BEAKER) (test uuac=870) 30.7 % 40.1-51.0 MEAN CORPUSCULAR VOLUME (BEAKER) (test pjzw=621) 88.0 fL 79.0-92.2 MEAN CORPUSCULAR HEMOGLOBIN (BEAKER) (test 29.2 pg 25.7-32.2 lvga=577) MEAN CORPUSCULAR HEMOGLOBIN CONC (BEAKER) (test 33.2 GM/DL 32.3-36.5 ddru=616) RED CELL DISTRIBUTION WIDTH (BEAKER) (test 13.8 % 11.6-14.4 pimx=664) PLATELET COUNT (BEAKER) (test bype=384) 314 K/CU MM 150-450 MEAN PLATELET VOLUME (BEAKER) (test rqcn=877) 9.6 fL 9.4-12.4 NUCLEATED RED BLOOD CELLS (BEAKER) (test 0 /100 WBC 0-0 dsdm=451) BASIC METABOLIC [id number] 16:22:00 Test Item Value Reference Range Comments SODIUM (BEAKER) (test 132 meq/L 136-145 qynl=031) POTASSIUM (BEAKER) (test 3.9 meq/L 3.5-5.1 eooe=732) CHLORIDE (BEAKER) (test 96 meq/L 98-107 vbhv=037) CO2 (BEAKER) (test 26 meq/L 22-29 takt=544) BLOOD UREA NITROGEN 30 mg/dL 7-21 (BEAKER) (test pqrs=793) CREATININE (BEAKER) (test 1.09 mg/dL 0.57-1.25 xsal=147) GLUCOSE RANDOM (BEAKER) 86 mg/dL 70-105 (test ggdv=356) CALCIUM (BEAKER) (test 9.8 mg/dL 8.4-10.2 yflj=853) EGFR (MAY) (test 66 mL/min/1.73 sq m ESTIMATED GFR IS NOT pjbz=7313) ACCURATE CREATININE CLEARANCE IN PREDICTING GLOMERULAR FILTRATION RATE. ESTIMATED GFR IS NOT APPLICABLE FOR DIALYSIS PATIENTS. [id number] 15:56:00 Test Item Value Reference Range Comments HEMOGLOBIN (MAY) (test mtgl=824) 11.2 GM/DL 13.7-17.5 PLATELET [id number] 15:56:00 Test Item Value Reference Range Comments PLATELET COUNT (MAY) (test odmo=751) 365 K/CU MM 150-450
--- OUTSIDE RECORDS SUMMARY | 2018-10-08 22:12 | XMS REPORT | Clinical Summary ---
:1945 Author Organization [facility] Address [address] [place] [address] Care Team Providers Name Role Phone Nelsy [...] by mouth 0 Active EXTRACT ORAL daily. [id number] Take by mouth 0 Active lic acid daily. ([id number]-PLLU-I INERALS-FOLIC ACID) 3,500-18-0.4 unit-mg-mg Chew levoFLOXacin Take [...] Pre-Admission Jaime Greene Testing MD [place] after 10/07/2017 Immunizations Name Dates Previously Given Next Due [...] Procedure Name Priority Date/Time Associated Comments Diagnosis INTRAOPERATIVE PATH 08/21/2018 10:02 REPORT - SCAN AM CDT CBC W/PLT COUNT & AUTO Routine 11/17/2017 5:10 Results for this DIFFERENTIAL AM CDT procedure are in the results section. CBC W/PLT COUNT & AUTO Routine 11/17/2017 5:10 Results for this DIFFERENTIAL AM CDT procedure are in the [...] in the results section. after 10/07/2017 Results INTRAOPERATIVE PATH REPORT - SCAN (08/21/2018 10:02 AM CDT) Narrative Performed At CBC with platelet count + automated diff (11/17/2017 5:10 AM CDT) WBC 10.6 (H) 3.5 - 10.5 K/L [facility] RBC 2.95 (L) 4.63 - 6.08 M/L [facility] Hemoglobin 8.5 (L) 13.7 - 17.5 GM/DL [facility] Hematocrit 26.2 (L) 40.1 - 51.0 % [facility] MCV 88.8 79.0 - 92.2 fL [facility] MCH 28.8 25.7 - 32.2 pg [facility] MCHC 32.4 32.3 - 36.5 GM/DL [facility] RDW 13.9 11.6 - 14.4 % [facility] Platelets 292 150 - 450 K/CU MM [facility] MPV 9.7 9.4 - 12.4 fL [facility] nRBC 0 0 - 0 /100 WBC [facility] % Neutros 92 % [facility] % Lymphs 4 % [facility] % Monos 3 % [facility] % Eos 1 % [facility] % Baso 0 % [facility] # Neutros 9.72 (H) 1.78 - 5.38 K/L [facility] # Lymphs 0.38 (L) 1.32 - 3.57 K/L [facility] # Monos 0.31 0.30 - 0.82 K/L [facility] # Eos 0.07 0.04 - 0.54 K/L [facility] # Baso 0.02 0.01 - 0.08 K/L [facility] Immature Granulocytes-Relative 1 0 - 1 % [facility] Specimen Blood Performing Organization Address City/[facility]/Zipcode Phone Number [address] [address] [phone] CENTER Magnesium (11/17/2017 5:10 AM CDT)Only the most recent of3 resultswithin the time period is included. Magnesium 1.8 1.6 - 2.6 mg/dL [facility] Specimen Blood Performing Organization Address City/State/Zipcode Phone Number [address] [address] [phone] [facility] Basic Metabolic Panel (11/17/2017 5:10 AM CDT)Only the most recent of4 resultswithin the time period is included. Sodium 132 (L) 136 - 145 meq/L [facility] Potassium 3.6 3.5 - 5.1 meq/L [facility] Chloride 102 98 - 107 meq/L [facility] CO2 23 22 - 29 meq/L [facility] BUN 19 7 - 21 mg/dL [facility] Creatinine 0.78 0.57 - 1.25 mg/dL [facility] Glucose 87 70 - 105 mg/dL [facility] Calcium 8.4 8.4 - 10.2 mg/dL [facility] EGFR 97Comment: ESTIMATED GFR IS mL/min/1.73 sq m [facility] NOT ACCURATE CREATININE MEDICAL CENTER CLEARANCE IN PREDICTING GLOMERULAR FILTRATION RATE. ESTIMATED GFR IS NOT APPLICABLE FOR DIALYSIS PATIENTS. Specimen Blood Performing Organization Address City/[facility]/Zipcode Phone Number [facility] [address] [place] [address], [place] [id number] CENTER CBC (Hemogram only) (11/16/2017 2:56 AM CDT)Only the most recent of2 resultswithin the time period is included. WBC 15.4 (H) 3.5 - 10.5 K/L [facility] RBC 3.54 (L) 4.63 - 6.08 M/L [facility] Hemoglobin 10.4 (L) 13.7 - 17.5 GM/DL [facility] Hematocrit 31.6 (L) 40.1 - 51.0 % [facility] MCV 89.3 79.0 - 92.2 fL [facility] MCH 29.4 25.7 - 32.2 pg [facility] MCHC 32.9 32.3 - 36.5 GM/DL [facility] RDW 13.7 11.6 - 14.4 % [facility] Platelets 319 150 - 450 K/CU MM [facility] MPV 10.5 9.4 - 12.4 fL [facility] nRBC 0 0 - 0 /100 WBC [facility] Specimen Blood Performing Organization Address City/[facility]/Zipcode Phone Number [facility] [address] [place] [address] CENTER Anaerobic culture (11/14/2017 10:21 AM CDT) Result BACTEROIDES FRAGILIS GROUP (A) [facility] Result BACTEROIDES FRAGILIS GROUP [facility] (A)Comment: of a second type MEDICAL CENTER Result PARVIMONAS MICRA (A) [facility] Result PREVOTELLA SPECIES (A) [facility] Specimen Body Fluid Performing Organization Address [facility] Phone Number [facility] [address] [place] [phone] [facility] Surgically obtained culture + gram stain (11/14/2017 10:21 AM CDT) Result PSEUDOMONAS AERUGINOSA (A) [facility] Result 1+ Enterococcus species (A) [facility] Result STREPTOCOCCUS, VIRIDANS GROUP [facility] () [facility] Result 1+ Diphtheroid (A) [facility] Gram Stain Result <1+ WBCs [facility] Gram Stain Result <1+ gram negative rods [facility] Gram Stain Result 2+ gram positive cocci in [facility] pairs [facility] Gram Stain Result <1+ gram positive rods [facility] Specimen Body Fluid Organism Antibiotic Method Susceptibility Pseudomonas aeruginosa Amikacin [...] species Vancomycin 1: Susceptible Performing Organization Address City/[facility]/Zipcode Phone Number [address] [address] [phone] [facility] Fungus culture + smear (11/14/2017 10:21 AM CDT) Result ROX ALBICANS (A) [facility] Fungus Smear No fungi seen [facility] Specimen Body Fluid Performing Organization Address City/State/Zipcode Phone Number [facility] [address] [place] [address] [phone] [facility] Tissue Exam (11/14/2017 10:15 AM CDT) Case Report Surgical Pathology Report Case: [id number] [facility] Authorizing Provider:Jaime Greene MDCollected: 11/14/2017 [facility]5 [facility] Ordering Location: [facility] Received: 11/14/2017 1019 [facility] Pathologist: Melia De Anda MD Specimens: A) - Abdomen, ABDOMINAL WALL ABCESS AND CANCER B) - Large Intestine, Colon - Right/Ascending, perforated and abcessed C) - Abdomen, Abdominal wall perforated tumor ADDENDUM 2 This addendum is being issued to report the results of additional biomarker testing performed at [facility]. [facility] RESULT: CENTER - BRAF mutation: DETECTED Please refer to attached scanned report for further results. CPT: 53363 ADDENDUM The addendum is issued to report the results of molecular tests performed at [facility]. [facility] RESULTS: CENTER - NRAS MUTATION: NOT DETECTED - KRAS MUTATION: NOT DETECTED - PD-L1 22C3 FDA (KEYTRUDA): NO EXPRESSION - TUMOR PROPORTION SCORE: 0% - INTENSITY: 0 Please see the attached scanned documents for more information. DIAGNOSIS A. SOFT TISSUE, ABDOMINAL WALL, EXCISION: 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 dated 11/14/17, the tumor is [facility] growing from the colon into [...] - All Specimens) [facility] SPECIMEN Procedure:Right hemicolectomy TUMOR Tumor Site:Right (ascending) [...] ADDITIONAL FINDINGS Additional Pathologic Findings:Adenoma(s) CPT Code(s) 84012 [facility] [id number] [place] [id number] [facility] [id number] CLINICAL HISTORY Adenoma of ascending colon [facility] SPECIMEN SOURCE A. Abdomen; B. Large intestine, [facility] colon - right/ascending ; C. [facility] Abdomen CENTER GROSS DESCRIPTION The specimen is received in three parts labeled with the patient's name and accession number which corresponds to patient's same name and accession number on accompanying requisition form. [facility] A. Received fresh for intraoperative consultation [...] between the fibrous and friable areas. A housing management representative section is submitted for frozen evaluation [...] 0.1 to 0.5 cm in greatest dimension. Associate Account Manager sections are submitted as follows: Ink [...] bowel segment without tumor; B5 through B13, housing management representative tumor, including full thickness sections; B14, colon polyp; B15, Associate Account Manager section grossly norm al mucosa toward proximal margin; B16, housing management representative grossly normal colonic mucosa toward distal of first bowel segment; B17, housing management representative area of transmural defect in second bowel segment; B18, repr esentative grossly normal mucosa of second bowel segment; B19, three candidate lymph nodes, whole; B20, four candidate lymph nodes, whole; B21, four candidate lymph nodes, whole; B22, three candidate ly mph nodes, whole; B23, five candidate lymph nodes, whole; B24, two candidate lymph nodes, whole. B25, housing management representative of tubular structure; B26, radial margin , en face. C. Received in formalin labeled "abdomen tissue" is a 7.8 x 4.2 x 1.6 cm aggregate of alfaro-white to alfaro-yellow fibrous to soft and friable soft tissue. Associate Account Manager sections are submitted in Cassettes C1 to C3. JY/pl INTRAOPERATIVE FROZEN SECTION DIAGNOSIS: [facility] AFS, ABDOMINAL WALL: [facility] - ADENOCARCINOMA CENTER These results are verbally reported to OR-[address] Duffy at 10:45 a.m. MICROSCOPIC DESCRIPTION A,C. Performed. [facility] B. IHC testing for all four [...] in the diagnostic report above: [facility] The immunohistochemistry test was developed and its performance characteristics determined by [facility], Pathology Laboratory. It has not been cleared or approved by the U.S. Food and [facility] Drug Administration. The FDA has determined that such clearance or approval is not necessary. The test is used for clinical purposes. It should not be regarded as investigational or for research. This [facility] laboratory is certified under the Clinical Laboratory Improvement Amendments of 1988 (CLIA-88) as qualified to perform high complexity clinical laboratory testing. Specimen Tissue Tissue - Ascending colon structure (body structure) Tissue - Abdominal structure (body structure) Narrative Performed At Performing Organization Address City/State/Zipcode Phone Number [address] [address] [phone] CENTER TRANSFUSION SERVICE REPORT - SCAN (11/11/2017 6:04 PM CDT) Narrative Performed At Type and screen, automated (11/10/2017 3:30 PM CDT) ABO/RH AUTOMATED (BEAKER) AB POSITIVE [facility] Ab Scrn NEGATIVE [facility] Specimen Blood Performing Organization Address City/State/Zipcode Phone Number [facility] [address] [place] [phone] Platelet count (11/10/2017 3:30 PM CDT) Platelets 365 150 - 450 K/CU MM [facility] Specimen Blood Performing Organization Address City/[facility]/Zipcode Phone Number [facility] [address] [place] [address] CENTER Hemoglobin (11/10/2017 3:30 PM CDT) Hemoglobin 11.2 (L) 13.7 - 17.5 GM/DL [facility] Specimen Blood Performing Organization Address City/[facility] Phone Number [facility] [address] [place] [address] CENTER after 10/07/2017 Insurance Payer Benefit Plan / Group Subscriber ID Type Phone Address MEDICARE MEDICARE A B xxxxxxxxxx Medicare AETNA - MGD CARE AETNA INDEMNITY NON CONTR xxxxxxxxx [address] ([address] [place] [phone] Advance Directives Patient has advance care planning documents, and code status on file. For more information, please contact:[address] [phone] Code Status Date Activated Date Inactivated Comments Full Code 11/14/2017 2:10 PM 11/17/2017 5:49 PM This code status was determined by: Patient
[2018-10-08 23:34] LABS: Absolute Lymphocytes (CBC) 0.1 K/uL (0.7-4.9); Absolute Monocytes 0.5 K/uL (0.1-1.3); Absolute Neutrophil 1.6 K/uL (1.8-8.0); Basophils % 0.1 % (0-1.3); Hematocrit 23.3 % (39.6-49.0); Lymphocytes % 5.1 % (15.3-44.8); MPV 8.7 fL (7.6-11.3); Monocytes % 20.6 % (3.3-12.3); RBC Red Blood Cell Count 2.34 M/uL (4.33-5.43)
[2018-10-08 23:42] LABS: Protime INR 1.7
[2018-10-08 23:52] LABS: Potassium 3.3 mmol/L (3.5-5.1)
[2018-10-08 23:59] LABS: Blood Morphology Comment NOT SEEN (NOT SEEN); Platelet Estimate ADEQ
[2018-10-09] MEDS ORDERED: NA CHLORIDE 0.9% 500 ML ONE (00:24)
[2018-10-09] MEDS ORDERED: VANCOMYCIN 1 GM/VIAL ONE (00:38)
[2018-10-09] MEDS ORDERED: NA CHLORIDE 0.9% 250 ML ONE (00:42)
--- NOTE | 2018-10-09 02:55 | EDPHYS ---
Physician Documentation [facility] Name: Hoang Recinos Age: 73 yrs Sex: Male : 1945 Arrival Date: 10/08/2018 Time: 22:11 Bed 16 Private MD: Trell Godwin ED Physician Yury Martini HPI: 10/08 22:41 This 73 yrs old Male presents to ER via Unassigned with complaints of red rn area with pus to lower abdomen. 22:41 The patient presents with cellulitis of the abdomen, the patient presents with a rn swollen area of the abdomen. Description: erythematous, swollen, warm. Onset: The symptoms/episode began/occurred yesterday. Possible cause(s): unknown. Modifying factors: the symptoms are alleviated by nothing, the symptoms are aggravated by touching. Severity of symptoms: At their worst the symptoms were moderate, in the emergency department the symptoms are unchanged. The patient has not experienced similar symptoms in the past. Reports noticed skin pain and redness 2 days ago, doesn't normally get skin infections, last chemo 1 week ago for colon cancer that seems to be responding to therapy, no longer getting radiation, reports 2 days of fatigue, fever, chills, and low energy. + small amount of drainage from swollen areas, redness increasing in size. . Historical: - Allergies: 22:50 PENICILLINS; lp1 22:50 Tylenol-Codeine #3; lp1 - Home Meds: 22:50 Eliquis oral oral [Active]; Omeprazole Oral [Active]; levothyroxine oral [Active]; lp1 - PMHx: 22:50 colon cancer; Blood clot; lp1 - PSHx: 22:50 Partial intestine removal; Hernia repair; hand reconstruction; lp1 - Immunization history:: Adult Immunizations up to date. - Social history:: Smoking status: Patient/guardian denies using tobacco. - Family history:: not pertinent. - Ebola Screening: : No symptoms or risks identified at this time. - Hospitalizations: : No recent hospitalization is reported. 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 rn family: MMM Respiratory: No increased work of breathing, no retractions or nasal flaring. Abdomen/GI: RLQ/groin with erythema and 3 areas of swelling/fluctuance with necrotic centers. Erythema and induration extend just past groin to RLE and to umbilicus. Skin: Warm, dry MS/ Extremity: Pulses equal, no cyanosis. Neurovascular intact. Full, normal range of motion. Equal circumference. Neuro: Awake and alert, GCS 15, oriented to person, place, time, and situation. Cranial nerves II-XII grossly intact. Motor strength 5/5 in all extremities. Sensory grossly intact. Cerebellar exam normal. Vital Signs: 22:45 BP 107 / 82; Pulse 79; Resp 18; Temp 100.4(O); Pulse Ox 100% on R/A; Weight 68.04 kg; lp1 Height 6 ft. 2 in. (187.96 cm); Pain 6/10; 23:30 BP 123 / 75; Pulse 78; Resp 18; Pulse Ox 100% on R/A; lp1 10/09 00:00 BP 115 / 66; Pulse 72; Resp 18; Pulse Ox 99% on R/A; lp1 00:45 BP 131 / 70; Pulse 69; Resp 18; Pulse Ox 100% on R/A; lp1 01:45 BP 137 / 74; Pulse 72; Resp 18; Pulse Ox 100% on R/A; lp1 02:45 BP 136 / 69; Pulse 74; Resp 18; Temp 99.9(O); Pulse Ox 100% on R/A; lp1 03:45 BP 142 / 73; Pulse 73; Resp 18; Pulse Ox 100% on R/A; lp1 04:30 BP 125 / 70; Pulse 71; Resp 18; Temp 98.5(O); Pulse Ox 100% on R/A; Pain 0/10; lp1 05:15 BP 112 / 56; Pulse 61; Resp 18; Pulse Ox 98% on R/A; lp1 10/08 22:45 Body Mass Index 19.26 (68.04 kg, 187.96 cm) lp1 MDM: 10/08 22:22 Patient medically screened. rn 10/09 02:53 Differential diagnosis: abscess, cellulitis. Data reviewed: vital signs, nurses notes, engineer internship test result(s), radiologic studies, CT scan, and as a result, I will admit patient. Counseling: I had a detailed discussion with the patient and/or guardian regarding: the historical points, exam findings, and any diagnostic results supporting the discharge/admit diagnosis, lab results, radiology results, the need for further work-up and treatment in the hospital. Admission orders: after a detailed discussion of the patient's condition and case, the admit orders are written by me. ED course: Pt with large subcutaneous abscess of abdomen, all extraperitoneal, with cellulitis, will admit to [facility] with Dr. Pepe consult for OR drainage. . 10/08 22:35 Order name: CBC with Diff; Complete Time: 00:10 rn 10/08 22:35 Order name: Basic Metabolic Panel; Complete Time: 00:00 rn 10/08 22:35 Order name: Blood Culture Adult (2) rn 10/08 22:35 Order name: Procalcitonin; Complete Time: 00:10 rn 10/08 22:35 Order name: Lactate; Complete Time: 00:00 rn 10/08 22:35 Order name: PT-INR; Complete Time: 00:00 rn 10/08 22:35 Order name: IV Start; Complete Time: 23:37 rn 10/08 22:35 Order name: CT Abd/Pelvis - W/Contrast rn 10/08 22:35 Order name: Ptt, Activated; Complete Time: 00:00 rn 10/08 23:59 Order name: Manual Differential; Complete Time: 00:10 EDMS Administered Medications: 00:16 Drug: NS 0.9% 500 ml Route: IV; Rate: bolus; Site: right forearm; lp1 01:00 Follow up: IV Status: Completed infusion; IV Intake: 500ml lp1 00:35 Drug: vancoMYCIN 1 grams Route: IVPB; Infused Over: 2 hrs; Site: right forearm; lp1 03:00 Follow up: IV Status: Completed infusion; IV Intake: 250ml lp1 03:49 Drug: Aztreonam 1 grams Route: IVPB; Infused Over: 30 mins; Site: right forearm; lp1 04:30 Follow up: IV Status: Completed infusion; IV Intake: 100ml lp1 Disposition: 10/09/18 02:54 Hospitalization ordered by Roberto Dickey for Inpatient Admission. Preliminary diagnosis is Cutaneous abscess of abdominal wall. - Bed requested for Telemetry/MedSurg (Inpatient). - Status is Inpatient Admission. lp1 - Condition is Stable. - Problem is new. - Symptoms have improved. UTI on Admission? No Signatures: Dispatcher [employer] EDMS Yury Martini MD MD rn Coral Morris RN RN lp1 Akua Arvizu RN RN cg Corrections: (The following items were deleted from the chart) 04:38 02:54 Hospitalization Ordered by Roberto Dickey MD for Inpatient Admission. Preliminary cg diagnosis is Cutaneous abscess of abdominal wall. Bed requested for Telemetry/MedSurg (Inpatient). Status is Inpatient Admission. Condition is Stable. Problem is new. Symptoms have improved. UTI on Admission? No. rn 05:28 04:38 10/09/2018 02:54 Hospitalization Ordered by Roberto Dickey MD for Inpatient lp1 Admission. Preliminary diagnosis is Cutaneous abscess of abdominal wall. Bed requested for Telemetry/MedSurg (Inpatient). Status is Inpatient Admission. Condition is Stable. Problem is new. Symptoms have improved. UTI on Admission? No. cg
--- NOTE | 2018-10-09 02:55 | ER ---
Nurse's Notes [facility] Name: Hoang Recinos Age: 73 yrs Sex: Male : 1945 Arrival Date: 10/08/2018 Time: 22:11 Bed 16 Private MD: Trell Godwin Diagnosis: Cutaneous abscess of abdominal wall Presentation: 10/08 22:46 Presenting complaint: Patient states: Abscess x2 to right lower abdomen that was lp1 noticed yesterday, redness increased to area today; Abscess burst during triage, pus noted, odorous. Transition of care: patient was not received from another setting of care. Onset of symptoms was October 08, 2018. Risk Assessment: Do you want to hurt yourself or someone else? Patient reports no desire to harm self or others. Initial Sepsis Screen: Does the patient meet any 2 criteria? No. Patient's initial sepsis screen is negative. Does the patient have a suspected source of infection? Yes: Skin breakdown/wound. Care prior to arrival: None. 22:46 Method Of Arrival: Wheelchair lp1 22:46 Acuity: SUMMER 2 lp1 Historical: - Allergies: 22:50 PENICILLINS; lp1 22:50 Tylenol-Codeine #3; lp1 - Home Meds: 22:50 Eliquis oral oral [Active]; Omeprazole Oral [Active]; levothyroxine oral [Active]; lp1 - PMHx: 22:50 colon cancer; Blood clot; lp1 - PSHx: 22:50 Partial intestine removal; Hernia repair; hand reconstruction; lp1 - Immunization history:: Adult Immunizations up to date. - Social history:: Smoking status: Patient/guardian denies using tobacco. - Family history:: not pertinent. - Ebola Screening: : No symptoms or risks identified at this time. - Hospitalizations: : No recent hospitalization is reported. Screenin:50 Abuse screen: Denies threats or abuse. Denies injuries from another. Nutritional lp1 screening: No deficits noted. Tuberculosis screening: No symptoms or risk factors identified. Fall Risk Total Narayan Fall Scale indicates High Risk Score (45 or more points). Fall prevention measures have been instituted. Side Rails Up X 2 As available patient and family educated on Fall Prevention Program and Strategies. Assessment: 22:51 General: Appears in no apparent distress. Behavior is calm, cooperative, appropriate lp1 for age. Pain: Complains of pain in right lower quadrant Pain currently is 6 out of 10 on a pain scale. Quality of pain is described as tender. Neuro: Level of Consciousness is awake, alert, obeys commands, Oriented to person, place, situation. Cardiovascular: Patient's skin is warm and dry. Respiratory: Respiratory effort is even, unlabored. GI: Abdomen is flat. : No signs and/or symptoms were reported regarding the genitourinary system. EENT: No signs and/or symptoms were reported regarding the EENT system. Derm: large area of redness noted to RLQ of abdomen; abscess x2 to area; Hot and tender to touch Abscess located on right lower quadrant is quarter sized, has purulent drainage, has foul odor, is hot to touch, is red. Musculoskeletal: No deficits noted. 23:25 Reassessment: CT notified of patient completing oral contrast at this time. lp1 10/09 00:22 Reassessment: Patient appears in no apparent distress at this time. Patient and/or lp1 family updated on plan of care and expected duration. Pain level reassessed. Patient resting, eyes closed, respirations unlabored; Waiting for CT. 01:30 Reassessment: Patient appears in no apparent distress at this time. No changes from lp1 previously documented assessment. 02:45 Reassessment: Patient appears in no apparent distress at this time. Patient and/or lp1 family updated on plan of care and expected duration. Pain level reassessed. Dr Martini at bedside to discuss results and care with patient and significant other. 04:00 Reassessment: Patient appears in no apparent distress at this time. Patient and/or lp1 family updated on plan of care and expected duration. Pain level reassessed. Patient resting, eyes closed, respirations unlabored. Vital Signs: 10/08 22:45 BP 107 / 82; Pulse 79; Resp 18; Temp 100.4(O); Pulse Ox 100% on R/A; Weight 68.04 kg; lp1 Height 6 ft. 2 in. (187.96 cm); Pain 6/10; 23:30 BP 123 / 75; Pulse 78; Resp 18; Pulse Ox 100% on R/A; lp1 10/09 00:00 BP 115 / 66; Pulse 72; Resp 18; Pulse Ox 99% on R/A; lp1 00:45 BP 131 / 70; Pulse 69; Resp 18; Pulse Ox 100% on R/A; lp1 01:45 BP 137 / 74; Pulse 72; Resp 18; Pulse Ox 100% on R/A; lp1 02:45 BP 136 / 69; Pulse 74; Resp 18; Temp 99.9(O); Pulse Ox 100% on R/A; lp1 03:45 BP 142 / 73; Pulse 73; Resp 18; Pulse Ox 100% on R/A; lp1 04:30 BP 125 / 70; Pulse 71; Resp 18; Temp 98.5(O); Pulse Ox 100% on R/A; Pain 0/10; lp1 05:15 BP 112 / 56; Pulse 61; Resp 18; Pulse Ox 98% on R/A; lp1 10/08 22:45 Body Mass Index 19.26 (68.04 kg, 187.96 cm) lp1 ED Course: 10/08 22:11 Patient arrived in ED. am2 22:11 Trell Godiwn is Private Physician. am2 22:22 Yury Martini MD is Attending Physician. rn 22:38 Coral Morris RN is Primary Nurse. lp1 22:45 Arm band placed on left wrist. lp1 22:48 Triage completed. lp1 22:50 Patient has correct armband on for positive identification. Placed in gown. Bed in low lp1 position. Call light in reach. Pulse ox on. NIBP on. 23:05 Inserted saline lock: 20 gauge in right forearm, using aseptic technique. Blood rr5 collected. 23:05 Initial lab(s) drawn, by nv, First set of blood cultures drawn by nv. rr5 23:25 Oral contrast reported to be complete. eh 23:25 Second set of blood cultures drawn by nv. lp1 10/09 00:13 Notified ED physician of a critical lab result(s). 7.9 Hgb. ak1 01:17 CT completed. Patient tolerated procedure well. Patient moved to CT via stretcher. Patient moved back from CT. 01:21 CT Abd/Pelvis - W/Contrast In Process Unspecified. EDMS 02:30 Wound care: to Abscess located on right lower quadrant was irrigated with normal lp1 saline, dressed with 4X4s. 02:49 No provider procedures requiring assistance completed. lp1 02:54 Roberto Dickey MD is Hospitalizing Provider. rn 04:40 Patient admitted, IV remains in place. lp1 Administered Medications: 00:16 Drug: NS 0.9% 500 ml Route: IV; Rate: bolus; Site: right forearm; lp1 01:00 Follow up: IV Status: Completed infusion; IV Intake: 500ml lp1 00:35 Drug: vancoMYCIN 1 grams Route: IVPB; Infused Over: 2 hrs; Site: right forearm; lp1 03:00 Follow up: IV Status: Completed infusion; IV Intake: 250ml lp1 03:49 Drug: Aztreonam 1 grams Route: IVPB; Infused Over: 30 mins; Site: right forearm; lp1 04:30 Follow up: IV Status: Completed infusion; IV Intake: 100ml lp1 Intake: 01:00 IV: 500ml; Total: 500ml. lp1 03:00 IV: 250ml; Total: 750ml. lp1 04:30 IV: 100ml; Total: 850ml. lp1 Outcome: 02:54 Decision to Hospitalize by Provider. rn 04:40 Condition: stable lp1 04:40 Instructed on the need for admit. 05:09 Admitted to Tele accompanied by tech, via stretcher, room 417, with chart, Report lp1 called to Treva. RN 05:28 Patient left the ED. lp1 Signatures: Dispatcher [employer] Raleigh Freeman Roman, MD MD rn Pena, Laura, RN RN lp1 Daina Guillen RN RN toma1 Shyann Desir amAdán Lucero, RN RN rr5 Corrections: (The following items were deleted from the chart) 04:47 04:30 BP 125 / 70; Pulse 71bpm; Resp 18bpm; Pulse Ox 100% RA; lp1 lp1 05:28 05:09 Admitted to Tele accompanied by tech, via wheelchair, room 417, with chart, lp1 Report called to Treva. RN lp1
[2018-10-09] MEDS ORDERED: AZTREONAM 1 GM/VIAL ONE (03:53)
[2018-10-09] MEDS ORDERED: NA CHLORIDE 0.9% 100 ML IV ONE (03:53)
--- NOTE | 2018-10-09 04:01 | P.HP ---
Certification for Inpatient Patient admitted to: Inpatient With expected LOS: >2 Midnights Practitioner: I am a practitioner with admitting privileges, knowledge of patient current condition, hospital course, and medical plan of care. Services: Services provided to patient in accordance with Admission requirements found in Title 42 Section 412.3 of the Code of Federal Regulations Patient History Date of Service: 10/09/18 Reason for admission: right lower quadrant SQ abscess History of Present Illness: Mr Recinos id a 73 years old male with history of DVT on Eliquis treatment, colon cancer, on chemotherapy treatment, last time about 1 week ago, presented to ED complaining of right lower quedrant pain. He has an indurated, redness area with 2 wounds with necrotic tissue. He states that his symptomas started about 2 days ago. The wounds were getting worse very fast. No documented fever at home, but was febrile at arrival 100.4 F. Lab work remarkable for 2.2 K WBC count, ANC 2.0, anemic 7.9 mg/dl, plt 121. CT abd/ pelvis remarkable for a large SQ abscess on the right lower quadrant. Allergies Penicillins Allergy (Verified 06/25/18 10:30) SWELLING Home medications list reviewed: Yes Home Medications: Cholecalciferol (Vitamin D3) [Vitamin D3] 5,000 unit PO DAILY 04/17/18 Cyanocobalamin (Vitamin B-12) [Vitamin B12] 2,500 mcg PO DAILY 04/17/18 Multivit,Ther Iron,Ca,FA & Min [Centrum Tablet] 1 tab PO DAILY 04/17/18 Codeine/APAP [Tylenol W/Codeine #3 tab] 1 tab PO Q4HP PRN #20 tab 04/20/18 Dexamethasone 8 mg PO BID 06/18/18 Fluorouracil [Fluorouracil*] 500 mg IV ONCE 06/18/18 Potassium Gluconate [Potassium] 600 mg PO DAILY 06/18/18 Turmeric Root Extract [Turmeric] 1,000 mg PO DAILY 06/18/18 - Past Medical/Surgical History -: colon cancer -: DVT -: hypothyroidism -: hernia repair -: hand reconstruction -: hemicolentomy - Family History Family History: Reviewed- Non-Contributory - Social History Smoking Status: Never smoker CD- Drugs: No Place of Residence: Home Review of Systems 10-point ROS is otherwise unremarkable Physical Examination - Physical Exam General: Alert, In no apparent distress HEENT: Atraumatic, PERRLA, Mucous membr. moist/pink, EOMI, Sclerae nonicteric Neck: Supple, 2+ carotid pulse no bruit, No LAD, Without JVD or thyroid abnormality Respiratory: Clear to auscultation bilaterally, Normal air movement Cardiovascular: Regular rate/rhythm, Normal S1 S2 Gastrointestinal: Normal bowel sounds, No tenderness Musculoskeletal: No tenderness Integumentary: Skin lesion, Tenderness/swelling, Erythema, Warmth, Other ( indurated area on right lower quadrant) Neurological: Normal speech, Normal strength at 5/5 x4 extr, Normal tone, Normal affect Lymphatics: No axilla or inguinal lymphadenopathy - Studies Laboratory Data (last 24 hrs) 10/08/18 23:05: PT 19.6 H, INR 1.70, APTT 22.8 L 10/08/18 23:05: Sodium 136, Potassium 3.3 L, BUN 20 H, Creatinine 1.17, Glucose 114 H 10/08/18 23:05: WBC 2.2 L D, Hgb 7.9 L* D, Hct 23.3 L D, Plt Count 121 L D Assessment and Plan - Problems (Diagnosis) (1) Abscess Current Visit: Yes Status: Acute (2) Colon cancer Current Visit: Yes Status: Acute Qualifiers: Colon location: unspecified part of colon Qualified Code(s): C18.9 - Malignant neoplasm of colon, unspecified (3) Hypothyroidism Current Visit: Yes Status: Acute Qualifiers: Hypothyroidism type: unspecified Qualified Code(s): E03.9 - Hypothyroidism , unspecified (4) History of DVT (deep vein thrombosis) Current Visit: Yes Status: Acute - Plan Will admit the patient to the hospital due to right lower quadrant SQ abscess, suspicious for founier's gangrena. Leukopenia but not neutropenia. Will start IV Vancomycin, Meropenem and Clindamycin. Consult Dr Pepe. - Advance Directives Does patient have a Living Will: No Does patient have a Durable POA for Healthcare: No - Code Status/Comfort Care Code Status Assessed: Yes Code Status: Full Code
[2018-10-09] MEDS ORDERED: NA CHLORIDE 0.9% IV SCH ×2 (06:03→07:00)
[2018-10-09] MEDS ORDERED: ONDANSETRON 4 MG/2 ML VIAL IV PRN (06:03)
[2018-10-09] MEDS ORDERED: CLINDAMYCIN IV SCH ×2 (06:03→07:00)
[2018-10-09] MEDS ORDERED: NA CHLORIDE 0.9% 1,000 ML IV SCH (06:03)
[2018-10-09] MEDS ORDERED: ACETAMINOPHEN 500 MG TAB PO PRN (06:03)
[2018-10-09] MEDS ORDERED: Meropenem 500 MG VIAL IV SCH ×2 (07:00→09:00)
[2018-10-09] MEDS ORDERED: SODIUM CHLORIDE 0.9% 10ML INJ IV PRN (08:08)
[2018-10-09 08:40] LABS: Hematocrit 25.8 % (39.6-49.0)
[2018-10-09] MEDS ORDERED: VANCOMYCIN 1 GM in NA CHLORIDE 0.9% 500 ML IVPB SCH (09:00)
[2018-10-09 09:15] LABS: Ferritin 4546.6 ng/mL (26-388)
[2018-10-09] MEDS: CLINDAMYCIN IV SCH ×3 (09:16→19:53)
[2018-10-09] MEDS: NA CHLORIDE 0.9% IV SCH ×3 (09:16→19:53)
[2018-10-09] MEDS: PANTOPRAZOLE 40 MG INJ IVP SCH (09:17)
[2018-10-09 09:22] LABS: Thyroid Stimulating Hormone 26.9 uIU/mL (0.360-3.740)
[2018-10-09] MEDS: Meropenem 500 MG in NA CHLORIDE 0.9% 100 ML IV SCH ×2 (10:20→19:53)
[2018-10-09] MEDS: KCL 20 MEQ/100 mL IVPB 20 MEQ/100 ML BAG IV SCH ×2 (10:21→11:00)
--- NOTE | 2018-10-09 10:39 | RAD REPORT ---
EXAM DESCRIPTION: Abdomen Pelvis W Contrast CLINICAL HISTORY: Known colon cancer, abd pain with RLQ cellulitis and absce COMPARISON: None. TECHNIQUE: CT ABDOMEN PELVIS WITH IV CONTRAST on 10/08/2018 10:35 PM CDT This exam was performed according to our departmental dose-optimization program, which includes autom ated exposure control, adjustment of the mA and/or kV according to patient size and/or use of iterati ve reconstruction technique. FINDINGS: Lower lungs are clear. Abdomen: The liver is normal in appearance. There is no biliary dilatation. There is a small hiatal h ernia. Gallbladder is decompressed. The pancreas and spleen are normal in appearance. Adrenal glands are normal. There is a small cortical four right renal cyst. There are bilateral parapelvic renal cys ts. Abdominal aorta is normal in course and caliber without aneurysm. There is no free air. There is no r etroperitoneal adenopathy.There is extensive edema within the extraperitoneal right lower quadrant sp earlene with large amount of air involving the subcutaneous abdominal wall and some of the deeper tissues along with small amount of fluid. This collection measures at least 9.0 x 6.9 cm. Pelvis: There is mild left colonic diverticulosis. Ascending colon resection was performed. Urinary b ladder is unremarkable. There is no free fluid. Skeleton: There are no acute osseous findings. No suspicious bony lesions. IMPRESSION: Right lower quadrant subcutaneous abscess. Electronically signed by: Edilberto Walker MD 10/09/2018 2:06 AM CDT Due to temporary technical issues with the PACS/Fluency reporting system, reports are being signed by the in house radiologist as a courtesy to ensure prompt reporting. The interpreting radiologist is f ully responsible for the content of the report.
[2018-10-09] MEDS: MORPHINE 2 MG/ML SYR IV PRN (12:51)
--- NOTE | 2018-10-09 13:57 | P.PN ---
Subjective Date of Service: 10/09/18 Primary Care Provider: Oncology-Dr. Leonard Chief Complaint: right lower quadrant SQ abscess Subjective: Other (Patient with history of colon cancer. Currently seen by oncology. Had colectomy done in [place] with Dr. Greene. Patient has been poor oral intake. at bedside. reports that he has been having pain to the right lower quadrant for quite some time but just now indicated.) Physical Examination - Vital Signs Temperature: 98.0 F Blood Pressure: 100/52 Pulse: 63 Respirations: 20 Pulse Ox (%): 100 - Physical Exam General: Alert, In no apparent distress, Oriented x3, Cooperative HEENT: Atraumatic Neck: Supple Respiratory: Clear to auscultation bilaterally, Normal air movement Cardiovascular: Normal pulses, Regular rate/rhythm Gastrointestinal: Other (Erythema to the right lower quadrant. Bandage in place. Pain noted to the right lower quadrant as well. This appears superficial.) Neurological: Normal speech, Normal strength at 5/5 x4 extr, Normal tone, Normal affect - Studies Laboratory Data (last 24 hrs) 10/08/18 23:05: PT 19.6 H, INR 1.70, APTT 22.8 L 10/08/18 23:05: Sodium 136, Potassium 3.3 L, BUN 20 H, Creatinine 1.17, Glucose 114 H 10/08/18 23:05: WBC 2.2 L D, Hgb 7.9 L* D, Hct 23.3 L D, Plt Count 121 L D Medications List Reviewed: Yes Assessment & Plan Discharge Plan: Home Plan to discharge in: Greater than 2 days Physician Review Additional Text: Impression: 9 x 6.9 cm right lower quadrant subcutaneous abscess with sepsis History of colon cancer with prior colectomy Hypothyroidism Anemia of chronic disease with iron deficiency GERD with hiatal hernia 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 Continue with IV fluids. Case discussed with surgery. Patient to remain NPO as patient will require surgical intervention. Await findings. Will review medication. History of colon cancer with prior colectomy: Patient with history of colon cancer and colectomy. Patient seen by oncology. Previously on chemotherapy. Hypothyroidism: Restart home medication Anemia of chronic disease with iron deficiency: Will provide iron IV. Maintain hemoglobin of 8.0 or above. GERD with hiatal hernia: Will provide Protonix. Will monitor closely. 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 Will need to restart after surgery. Moderate Malnutrition: Encourage oral intake. Will address with dietary. Dehydration, hypokalemia: Continue with fluids. Will correct electrolytes. Time Spent Managing Pts Care (In Minutes): 55
[2018-10-09] MEDS: NA CHLORIDE 0.9% 1,000 ML IV SCH ×2 (14:00→19:54)
[2018-10-09] MEDS ORDERED: PROPOFOL 200 MG/20 ML VIAL IV ONE (15:21)
[2018-10-09] MEDS ORDERED: FENTANYL CITR 100 MCG/2 ML ONE ×2 (15:22→17:15)
[2018-10-09] MEDS ORDERED: MIDAZOLAM HCL 2 MG/2 ML INJ ONE (15:22)
[2018-10-09] MEDS ORDERED: LIDOCAINE 1% MPF 5 ML VIAL ONE (15:22)
[2018-10-09] MEDS ORDERED: ROCURONIUM 50 MG/5 ML VIAL IV ONE (15:23)
[2018-10-09] MEDS ORDERED: LABETALOL 20 MG/4ML SYRINGE IV ONE (15:23)
[2018-10-09] MEDS ORDERED: EPHEDRINE SULF 50 MG/ML VIAL ONE (15:24)
[2018-10-09] MEDS ORDERED: Phenylephrine HCl 10 MG/ML 1 ML VIAL ONE (15:24)
[2018-10-09] MEDS ORDERED: NEOSTIGMINE 1 MG/ML -10 ML VIAL ONE (15:24)
[2018-10-09] MEDS ORDERED: ONDANSETRON 4 MG/2 ML VIAL ONE (15:25)
[2018-10-09] MEDS ORDERED: GLYCOPYRROLATE 0.2 MG/ML SYR ONE ×2 (15:26)
[2018-10-09] MEDS ORDERED: Ringers Lactate 1,000 ML IV ONE (15:44)
[2018-10-09] MEDS ORDERED: SUCCINYLCHOLINE 20 MG/ML (10 ML) IV ONE (16:01)
--- NOTE | 2018-10-09 17:52 | P.BOP ---
Preoperative diagnosis: abdominal wall necrotizing fascitis, metastatic colon cancer on chemo Postoperative diagnosis: same Primary procedure: Wide resection down to fascia and muscle abdominal wall necrotizing fasciti Estimated blood loss: 100cc Specimen: necrotic tissue Anesthesia: General Complications: None Transferred to: Recovery Room Condition: Good
[2018-10-09] MEDS: MORPHINE 4 MG/ML SYR ONE ×2 (18:00→18:05)
[2018-10-09] MEDS ORDERED: NA CHLORIDE 0.9% 1,000 ML ONE (19:24)
[2018-10-09] MEDS: ENSURE ENLIVE 237 ML CAN PO SCH (19:55)
[2018-10-09] MEDS ORDERED: KCL 20 MEQ/100 mL IVPB 20 MEQ/100 ML BAG IV SCH ×2 (20:00→22:30)
[2018-10-09 20:26] LABS: Potassium 3.2 mmol/L (3.5-5.1)
[2018-10-10] MEDS: NA CHLORIDE 0.9% IV SCH ×2 (00:13→05:48)
[2018-10-10] MEDS: CLINDAMYCIN IV SCH ×2 (00:13→05:48)
[2018-10-10] MEDS ORDERED: VANCOMYCIN 1.25 GM in NA CHLORIDE 0.9% 250 ML IVPB SCH (00:30)
[2018-10-10] MEDS: Meropenem 500 MG in NA CHLORIDE 0.9% 100 ML IV SCH ×2 (00:50→09:33)
[2018-10-10] MEDS: MORPHINE 2 MG/ML SYR IV PRN (04:13)
[2018-10-10 05:33] LABS: Absolute Lymphocytes (CBC) 0.2 K/uL (0.7-4.9); Absolute Monocytes 0.4 K/uL (0.1-1.3); Absolute Neutrophil 0.6 K/uL (1.8-8.0); Basophils % 0.6 % (0-1.3); Eosinophils % 1.1 % (0-4.4); Hematocrit 26.9 % (39.6-49.0); Lymphocytes % 12.4 % (15.3-44.8); MPV 8.9 fL (7.6-11.3); Monocytes % 34.2 % (3.3-12.3); RBC Red Blood Cell Count 2.68 M/uL (4.33-5.43)
[2018-10-10 05:40] LABS: Magnesium 1.9 mg/dL (1.8-2.4); Potassium 3.6 mmol/L (3.5-5.1)
[2018-10-10] MEDS: LEVOTHYROXINE SOD 0.075 MG TAB PO SCH (05:48)
[2018-10-10] MEDS: NA CHLORIDE 0.9% 1,000 ML IV SCH ×2 (06:40→17:22)
[2018-10-10] MEDS ORDERED: KCL 20 MEQ/100 mL IVPB 20 MEQ/100 ML BAG IV SCH (07:00)
[2018-10-10] MEDS: ENSURE ENLIVE 237 ML CAN PO SCH ×2 (09:00→21:14)
[2018-10-10] MEDS: PANTOPRAZOLE 40 MG INJ IVP SCH (09:33)
[2018-10-10] MEDS: SOD FERRIC GLUC COMPLX/SUCROSE 125 MG in NA CHLORIDE 0.9% 100 ML IV SCH (09:33)
[2018-10-10] MEDS: THIAMINE HCL 100 MG TABLET PO SCH (09:33)
[2018-10-10] MEDS: FOLIC ACID 1 MG TABLET PO SCH (09:40)
[2018-10-10] MEDS ORDERED: Meropenem 500 MG in NA CHLORIDE 0.9% 100 ML IV ONE (11:20)
--- NOTE | 2018-10-10 11:50 | P.PN ---
Subjective Date of Service: 10/10/18 Primary Care Provider: Oncology-Dr. Leonard Chief Complaint: right lower quadrant SQ abscess Subjective: Other (Patient doing well this time. Patient had surgery last night. Patient currently NPO.) Physical Examination - Vital Signs Temperature: 98.5 F Blood Pressure: 121/58 Pulse: 56 Respirations: 12 Pulse Ox (%): 99 - Physical Exam General: Alert, In no apparent distress, Oriented x3, Cooperative HEENT: Atraumatic Neck: Supple Respiratory: Clear to auscultation bilaterally, Normal air movement Cardiovascular: Normal pulses, Regular rate/rhythm Gastrointestinal: Normal bowel sounds, Soft and benign, Other (Bandage to the right lower quadrant noted.) Integumentary: No erythema, No warmth, No cyanosis Neurological: Normal speech, Normal strength at 5/5 x4 extr, Normal tone, Normal affect - Studies Medications List Reviewed: Yes Assessment & Plan Discharge Plan: Other (Skilled placement facility) Plan to discharge in: Greater than 2 days Physician Review Additional Text: Impression: 9 x 6.9 cm right lower quadrant subcutaneous abscess with sepsis likely related to necrotizing fasciitis status post wide excision and debridement History of colon cancer with prior colectomy Hypothyroidism Pancytopenia with iron deficiency GERD with hiatal hernia 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 Patient seemed to have tolerated procedure well. Spoke with surgery yesterday. Surgery was concern for necrotizing fasciitis. Patient appears stable at this time. Patient currently NPO. Patient may require further debridement today. Await recommendation. Will maintain sats above 90%. Continue IV fluid resuscitation. Monitor electrolytes and replace appropriately. Encourage incentive spirometer. IV antibiotics reviewed and adjusted with pharmacy. Spoke with yesterday as patient may require long- term acute care facility placement verses skilled placement at discharge for continued IV antibiotic therapy and aggressive wound care. Will discuss further with surgery. History of colon cancer with prior colectomy: Patient with history of colon cancer and colectomy. Patient seen by oncology. Previously on chemotherapy. Will discuss with his oncologist Hypothyroidism: Continue home medication Pancytopenia with iron deficiency: Hemoglobin stable. Will continue with IV iron. Maintain hemoglobin of 8.0 or above. Will discuss with Oncology. Patient may require medication Neupogen for low white count. Will continue monitor platelet count closely. This is likely from sepsis. GERD with hiatal hernia: Will continue with Protonix. Will monitor closely. 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 Will discuss with surgery on when to restart. Platelets also low. Will discuss with Oncology. Moderate Malnutrition: Encourage oral intake. Will address with dietary. Dehydration, hypokalemia: Continue with fluids. Will correct electrolytes. Time Spent Managing Pts Care (In Minutes): 55
[2018-10-10] MEDS: CYANOCOBALAMIN 1,000 MCG TAB PO SCH (12:40)
[2018-10-10 13:33] LABS: Absolute Lymphocytes (CBC) 0.2 K/uL (0.7-4.9); Absolute Monocytes 0.3 K/uL (0.1-1.3); Absolute Neutrophil 0.6 K/uL (1.8-8.0); Basophils % 0.2 % (0-1.3); Eosinophils % 1.4 % (0-4.4); Hematocrit 27.2 % (39.6-49.0); Lymphocytes % 14.5 % (15.3-44.8); Monocytes % 28.3 % (3.3-12.3); RBC Red Blood Cell Count 2.69 M/uL (4.33-5.43)
[2018-10-10 13:34] LABS: RBC Red Blood Cell Count 2.65 M/uL (4.33-5.43)
[2018-10-10 13:45] LABS: Protime INR 1.35
[2018-10-10] MEDS: MORPHINE 4 MG/ML SYR IV PRN ×2 (15:20→21:57)
--- NOTE | 2018-10-10 15:55 | PN ---
Date of Progress Note: 10/10/2018 Subjective: Diagnoses of colon cancer, metastatic, on chemotherapy, and necrotizing fascitis abdomin al wall and groin. Objective: General: The patient is doing well. Right now, he is awake alert. No distress. Chest: Clear. Abdomen: Soft and depressible. Intact surgical site. No progression of the disease seen. Extremities: Good capillary refill. Laboratory Data: Blood work, WBC count is 1.1 with hemoglobin of 8.9, platelets of 117. INR is 1.35 , chloride is 108. Assessment: A 73-year-old patient with necrotizing fascitis on chemotherapy for colon cancer. Progn osis poor, still he is recovering. Right now he is tolerating even diet. Was still on antibiotics, reverse isolation, intense wound care. The patient may need LTAC. HM/MODL Voice ID: [id number] Report ID: [id number]
[2018-10-10] MEDS ORDERED: MORPHINE 4 MG/ML SYR IV PRN (16:00)
[2018-10-10] MEDS: Meropenem 1,000 MG in NA CHLORIDE 0.9% 100 ML IV SCH (17:10)
[2018-10-10] MEDS: VANCOMYCIN 1.25 GM in NA CHLORIDE 0.9% 250 ML IVPB SCH (17:11)
[2018-10-10 18:50] LABS: Blood Morphology Comment NOTED (NOT SEEN); Platelet Estimate DECR
[2018-10-10 18:51] LABS: Anisocytosis 1+
[2018-10-10] MEDS: TBO-FILGRASTIM 480 MCG/0.8 ML SYR SQ SCH (21:47)
[2018-10-11] MEDS: Meropenem 1,000 MG in NA CHLORIDE 0.9% 100 ML IV SCH ×3 (00:30→16:34)
[2018-10-11] MEDS: NA CHLORIDE 0.9% 1,000 ML IV SCH ×4 (02:21→21:15)
[2018-10-11] MEDS: LEVOTHYROXINE SOD 0.075 MG TAB PO SCH (05:17)
[2018-10-11 05:44] LABS: Magnesium 2.1 mg/dL (1.8-2.4); Potassium 3.9 mmol/L (3.5-5.1)
[2018-10-11 05:57] LABS: Protime INR 1.12
[2018-10-11 06:20] LABS: Absolute Lymphocytes (CBC) 0.1 K/uL (0.7-4.9); Absolute Monocytes 0.3 K/uL (0.1-1.3); Absolute Neutrophil 1.8 K/uL (1.8-8.0); Basophils % 0.4 % (0-1.3); Eosinophils % 1.2 % (0-4.4); Hematocrit 28.9 % (39.6-49.0); MPV 8.7 fL (7.6-11.3); Monocytes % 15.1 % (3.3-12.3); RBC Red Blood Cell Count 2.86 M/uL (4.33-5.43)
--- NOTE | 2018-10-11 08:13 | P.PN ---
Subjective Date of Service: 10/11/18 Primary Care Provider: Oncology-Dr. Leonard Chief Complaint: right lower quadrant SQ abscess Subjective: Other (Patient doing well. Tolerating dressing changes. Tolerating diet.) Physical Examination - Vital Signs Temperature: 97.1 F Blood Pressure: 110/49 Pulse: 51 Respirations: 12 Pulse Ox (%): 99 - Physical Exam General: Alert, In no apparent distress, Oriented x3, Cooperative HEENT: Atraumatic Neck: Supple Respiratory: Clear to auscultation bilaterally, Normal air movement Cardiovascular: Normal pulses, Regular rate/rhythm Gastrointestinal: Normal bowel sounds, Soft and benign, Non-distended, Other ( Lower abdominal wound evaluated. Large incision deep noted. Packing in place.) Integumentary: No erythema, No warmth, No cyanosis Neurological: Normal speech, Normal strength at 5/5 x4 extr, Normal tone, Normal affect - Studies Medications List Reviewed: Yes Assessment & Plan Discharge Plan: LTAC Plan to discharge in: 24 Hours Physician Review Additional Text: Impression: 9 x 6.9 cm right lower quadrant subcutaneous abscess with sepsis related to necrotizing fasciitis status post wide excision and debridement, postop day 2, complicated with bacteremia-blood culture positive for Pseudomonas, wound culture pending but showing Gram negative ciarra and Gram positive cocci History of colon cancer with prior colectomy and chemotherapy Hypothyroidism Pancytopenia with iron deficiency GERD with hiatal hernia 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 Pain well controlled. Continue with aggressive wound care. Packing in place. Patient with necrotizing fasciitis. Continue IV meropenem and vancomycin. Blood cultures positive for Pseudomonas. Wound culture pending at this time. Wound culture shows Gram negative ciarra and gram positive cocci. Patient tolerating diet. Continue IV fluids. Encourage incentive spirometer. Patient will require long-term IV antibiotic therapy at least for 2 weeks, possibly longer, and aggressive wound care. Will recommend long-term acute care facility. Case discussed with surgery who agrees. Will have social work look in to this tomorrow. Patient can likely go to long-term acute facility once approved. I will turn the service over to Dr. Romero tomorrow. I will go over the plan of care with her. History of colon cancer with prior colectomy and chemotherapy: Case discussed with Oncology. Last chemotherapy 09/30/2018. Patient received Granix yesterday. Will continue with Granix rodney if absolute neutrophil count less than 1000. Continue to monitor closely Hypothyroidism: Continue home medication Pancytopenia with iron deficiency: Hemoglobin stable. Will continue with IV iron. Maintain hemoglobin of 8.0 or above. GERD with hiatal hernia: Will continue with Protonix. Will monitor closely. 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 Will need to continue to follow hemoglobin closely while on medication Moderate Malnutrition: Encourage oral intake. Will address with dietary. Dehydration, hypokalemia: Continue with aggressive IV fluids. Will continue to correct electrolytes. Time Spent Managing Pts Care (In Minutes): 55
[2018-10-11 08:45] LABS: Blood Morphology Comment NOT SEEN (NOT SEEN); Platelet Estimate ADEQ
[2018-10-11] MEDS: ENSURE ENLIVE 237 ML CAN PO SCH ×2 (09:00→21:00)
[2018-10-11] MEDS ORDERED: POTASSIUM 25 MEQ EFFERV TAB PO ONE (09:00)
[2018-10-11] MEDS: SOD FERRIC GLUC COMPLX/SUCROSE 125 MG in NA CHLORIDE 0.9% 100 ML IV SCH (09:48)
[2018-10-11] MEDS: CYANOCOBALAMIN 1,000 MCG TAB PO SCH (09:48)
[2018-10-11] MEDS: FOLIC ACID 1 MG TABLET PO SCH (09:48)
[2018-10-11] MEDS: THIAMINE HCL 100 MG TABLET PO SCH (09:48)
[2018-10-11] MEDS: APIXABAN 5 MG TABLET PO SCH ×2 (09:48→21:15)
[2018-10-11] MEDS: TBO-FILGRASTIM 480 MCG/0.8 ML SYR SQ SCH (09:53)
[2018-10-11] MEDS: VANCOMYCIN 1.25 GM in NA CHLORIDE 0.9% 250 ML IVPB SCH (12:44)
[2018-10-11] MEDS ORDERED: MORPHINE 2 MG/ML SYR IV PRN (13:00)
[2018-10-11] MEDS: MORPHINE 4 MG/ML SYR IV PRN ×2 (16:32→21:14)
--- NOTE | 2018-10-11 19:53 | PN ---
Subjective: Diagnoses: Necrotizing fascitis; colon cancer, on chemotherapy; leukopenia. The patient is doing better. Starting to tolerate diet. Objective: Vital Signs: Stable. General: The patient is awake and alert. No distress. Abdomen: Soft and depressible. Intact surgical site, lysed and the patient still has some swelling over the area. We did not see any new necrotic tissue present, still require intensive wound care. Extremities: Good capillary refill. Laboratory Data: Blood work; WBC count of 2, coming up from 1. Plan: Continue dressing changes and IV antibiotics. We will like once again the input from Dr. Romana conte when he comes to the consult. The patient will require long-term health, might need an LTAC. LALIT/MODL Voice ID: [id number] Report ID: [id number]
[2018-10-11 22:39] VITALS: O2SAT 99
[2018-10-12] MEDS: Meropenem 1,000 MG in NA CHLORIDE 0.9% 100 ML IV SCH ×3 (01:57→16:10)
[2018-10-12] MEDS: VANCOMYCIN 1.25 GM in NA CHLORIDE 0.9% 250 ML IVPB SCH ×2 (05:55→23:07)
[2018-10-12] MEDS: MORPHINE 4 MG/ML SYR IV PRN (05:56)
[2018-10-12] MEDS: LEVOTHYROXINE SOD 0.075 MG TAB PO SCH (05:56)
[2018-10-12 05:59] LABS: Protime INR 1.46
[2018-10-12 06:00] LABS: Absolute Lymphocytes (CBC) 0.3 K/uL (0.7-4.9); Absolute Monocytes 0.6 K/uL (0.1-1.3); Absolute Neutrophil 7.1 K/uL (1.8-8.0); Basophils % 0.5 % (0-1.3); Eosinophils % 0.5 % (0-4.4); Hematocrit 28.6 % (39.6-49.0); Lymphocytes % 3.7 % (15.3-44.8); MPV 9.1 fL (7.6-11.3); Monocytes % 7.8 % (3.3-12.3); RBC Red Blood Cell Count 2.85 M/uL (4.33-5.43)
[2018-10-12] MEDS: NA CHLORIDE 0.9% 1,000 ML IV SCH ×3 (06:06→22:33)
[2018-10-12 06:13] LABS: BUN Blood Urea Nitrogen 10 mg/dL (7-18); Bicarbonate 27 mmol/L (21-32); Glucose Level 84 mg/dL (74-106); Magnesium 1.8 mg/dL (1.8-2.4); Potassium 3.9 mmol/L (3.5-5.1); Sodium Level 140 mmol/L (136-145)
[2018-10-12 07:07] LABS: Blood Morphology Comment NOTED (NOT SEEN); Platelet Estimate ADEQ; Urine White Blood Cell Casts OK
[2018-10-12 07:08] LABS: Anisocytosis 1+; Macrocytosis 1+
[2018-10-12] MEDS: PANTOPRAZOLE 40MG TABLET PO SCH (07:49)
[2018-10-12] MEDS: APIXABAN 5 MG TABLET PO SCH ×2 (08:18→20:47)
[2018-10-12] MEDS: SOD FERRIC GLUC COMPLX/SUCROSE 125 MG in NA CHLORIDE 0.9% 100 ML IV SCH (08:18)
[2018-10-12] MEDS: CYANOCOBALAMIN 1,000 MCG TAB PO SCH (08:18)
[2018-10-12] MEDS: THIAMINE HCL 100 MG TABLET PO SCH (08:18)
[2018-10-12] MEDS: FOLIC ACID 1 MG TABLET PO SCH (08:18)
[2018-10-12] MEDS: TBO-FILGRASTIM 480 MCG/0.8 ML SYR SQ SCH (09:00)
[2018-10-12] MEDS ORDERED: MAGNESIUM SULFATE 1 gm IVPB 1 GM/100 ML BAG IV ONE (09:00)
[2018-10-12] MEDS ORDERED: POTASSIUM CL SA 10 MEQ TAB PO ONE (09:00)
--- NOTE | 2018-10-12 09:24 | CON ---
Date of Consultation: 10/09/2018 Diagnosis: Abdominal wall cellulitis, necrotic skin possible necrotizing fasciitis. History Of Present Illness: This is the case of a 73-year-old patient come and admitted today with a n abdominal wall cellulitis. He is a patient with colon cancer, currently in chemotherapy. When I s aw the patient today, I see the redness on the abdomen. The patient states he has been feeling this for several days already. It is foul smelling with necrotic tissue present. He denies any trauma. He received his chemotherapy every 2 weeks. Allergies: PENICILLIN. Medications: Reviewed. Medical Problems: Metastatic colon cancer on chemotherapy. History of right hemicolectomy. History of hernia repair in the past. Hypothyroidism. Family History: Noncontributory. Social History: He does not smoke. He does not drink alcohol. Review of Systems: Ten points otherwise unremarkable. Physical Examination: General: The patient is awake and alert. No distress. HEENT: Pupils are equal and reactive, anicteric. Neck: Supple. Chest: Clear. Abdomen: Right lower quadrant tenderness include entire right lower quadrant with the suprapubic are a and the groin region. There is a patches of necrotic tissue present. I cannot rule out necrotizin g fasciitis. The patient need surgery immediately. Rectal: Deferred. Extremities: Good capillary refill. Laboratory Data: Blood work shows a WBC count of 2.2 with hemoglobin of 7.9, platelets of 121. INR is 1.7. Glucose 114. CAT scan of abdomen and pelvis interpreted by as right lower qu adrant subcutaneous abscess. Assessment: This is a 73-year-old patient with colon cancer on chemotherapy. There is severe infect ion of the right lower quadrant abdominal wall cellulitis, abscess, necrotic tissue, possible necroti zing fasciitis. Has anemia . This patient was informed need for immediate debridement of that area, irrigation, IV antibiotics. this patient should be seen by Infectious Disease. High risk for sepsis, which chemotherapy, it will be challenging to treat. The patient understands, signed the consent immediately done. LALIT/EMI Voice ID: [id number] Report ID: [id number]
--- NOTE | 2018-10-12 15:45 | P.PN ---
Subjective Date of Service: 10/12/18 Primary Care Provider: Oncology-Dr. Leonard Chief Complaint: right lower quadrant SQ abscess Patient seen and examined with RN. Chart reviewed. Case discussed with general surgery. This morning patient is doing better than before. No complaints to offer overnight. Denies having any fever chills nausea vomiting or any other associated symptoms overnight. Currently awaiting L tach placement. Review of Systems 10-point ROS is otherwise unremarkable Physical Examination - Vital Signs Temperature: 97.4 F Blood Pressure: 169/80 Pulse: 70 Respirations: 15 Pulse Ox (%): 99 - Physical Exam General: Alert, In no apparent distress Respiratory: Normal air movement, Crackles/rales Cardiovascular: Regular rate/rhythm, Normal S1 S2 Gastrointestinal: Normal bowel sounds, Tenderness Musculoskeletal: Erythema, Tenderness, Other (Right Groin area with Packing. Serasanginous Drainage noted. Wound is improving. ) Integumentary: No rashes Neurological: Normal speech, Normal tone, Normal affect Lymphatics: No axilla or inguinal lymphadenopathy - Studies Medications List Reviewed: Yes Assessment And Plan - Current Problems (Diagnosis) (1) Sepsis Current Visit: Yes Status: Acute Plan: Sepsis most likely secondary to necrotizing fasciitis and bacteremia -Wound culture positive for ESBL, strep bovis, Morabella -blood culture positive for Pseudomonas -currently on IV meropenem and vancomycin -would need IV antibiotics along with complex wound care for total of 2-4 weeks -currently awaiting infectious disease consultation as well. Qualifiers: Sepsis type: Pseudomonas Qualified Code(s): A41.52 - Sepsis due to Pseudomonas (2) Necrotizing fasciitis Current Visit: Yes Status: Acute Plan: 9 x 6.9 cm right lower quadrant subcutaneous abscess near the groin area. -status post wide excision and debridement, postop day 3 -Patient with necrotizing fasciitis. -Continue IV meropenem and vancomycin. -awaiting infectious disease recommendations at this time -general surgery consulted. Appreciated recommendations at this time -extensive wound care required daily -case management consulted for placement at long-term acute care (3) Colon cancer Current Visit: Yes Status: Chronic Qualifiers: Colon location: unspecified part of colon Qualified Code(s): C18.9 - Malignant neoplasm of colon, unspecified (4) History of DVT (deep vein thrombosis) Current Visit: Yes Status: Chronic (5) Hypothyroidism Current Visit: Yes Status: Chronic Qualifiers: Hypothyroidism type: acquired Qualified Code(s): E03.9 - Hypothyroidism, unspecified (6) GERD (gastroesophageal reflux disease) Current Visit: Yes Status: Chronic Qualifiers: Esophagitis presence: without esophagitis Qualified Code(s): K21.9 - Gastro -esophageal reflux disease without esophagitis Discharge Plan: LTAC Plan to discharge in: Greater than 2 days - Code Status/Comfort Care Code Status Assessed: Yes Critical Care: No
[2018-10-12] MEDS: ENSURE ENLIVE 237 ML CAN PO SCH ×2 (16:11→20:47)
--- NOTE | 2018-10-12 22:54 | CON ---
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 Th e patient already had surgical debridement. Denies any headache, nausea, vomiting, or chest pain. H maribel continues to have pain in the surgical site. He has significant past medical history of colon canc er, DVT, hypothyroidism, hernia repair and reconstruction. The patient received chemotherapy for col on cancer 1 week ago and developed right lower quadrant discomfort. Past Medical History: As per HPI. Social History: Nonsmoker and nondrinker. Family History: Noncontributory. Medications: Meropenem and vancomycin. Allergies: PENICILLIN AND CODEINE. Review of Systems: A 10-point review was performed. Physical Examination: General: This is a 73-year-old male, lying in bed, in moderate distress because of abdominal discomf ort. Vital signs: Temperature 97.4, pulse 70, respirations 15, and blood pressure 159/80. HEENT: Unremarkable. Neck: Supple. Lungs: Basal crackles. Heart: S1, S2. Regular. Abdomen: Soft, nontender, right lower quadrant tenderness noted. Bowel sounds present. Extremities: No edema. Laboratory Data: WBC 8.1, initially it was 1.2, status post chemotherapy, hemoglobin 9.5, and platel ets 155. Chemistry shows; sodium 140, potassium 3.9, chloride 108, bicarb 27, BUN 10, creatinine 0.7 , and glucose 84. Micro data positive for Escherichia coli and Morganella morganii, Strep bovis, Pse udomonas aeruginosa and the blood cultures positive. 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 Continue antibiotic and supportive care. Consider also hyperbaric treatment. Continue wound c are. We will start the patient on hyperbaric treatment, if possible. We will follow the patient edda lowe. Thank you Dr. Fam and Dr. Romero, for consult. NF/MODL Voice ID: [id number] Report ID: [id number]
[2018-10-13] MEDS: Meropenem 1,000 MG in NA CHLORIDE 0.9% 100 ML IV SCH ×2 (01:07→08:22)
[2018-10-13 05:15] LABS: Absolute Lymphocytes (CBC) 0.4 K/uL (0.7-4.9); Absolute Monocytes 0.7 K/uL (0.1-1.3); Absolute Neutrophil 16.4 K/uL (1.8-8.0); Basophils % 0.4 % (0-1.3); Eosinophils % 0.2 % (0-4.4); Hematocrit 28.8 % (39.6-49.0); Lymphocytes % 2.5 % (15.3-44.8); MPV 8.3 fL (7.6-11.3); Monocytes % 4.1 % (3.3-12.3); RBC Red Blood Cell Count 2.87 M/uL (4.33-5.43)
[2018-10-13 05:20] LABS: Protime INR 1.28
[2018-10-13 05:26] LABS: BUN Blood Urea Nitrogen 7 mg/dL (7-18); Bicarbonate 28 mmol/L (21-32); Glucose Level 78 mg/dL (74-106); Potassium 3.5 mmol/L (3.5-5.1); Sodium Level 141 mmol/L (136-145)
[2018-10-13 06:16] LABS: Blood Morphology Comment NOT SEEN (NOT SEEN); Platelet Estimate ADEQ; Toxic Granulation PRESENT
[2018-10-13] MEDS: LEVOTHYROXINE SOD 0.075 MG TAB PO SCH (06:21)
[2018-10-13] MEDS: PANTOPRAZOLE 40MG TABLET PO SCH (06:21)
[2018-10-13 06:40] VITALS: BMI 21.9
[2018-10-13] MEDS: APIXABAN 5 MG TABLET PO SCH (08:22)
[2018-10-13] MEDS: CYANOCOBALAMIN 1,000 MCG TAB PO SCH (08:23)
[2018-10-13] MEDS: FOLIC ACID 1 MG TABLET PO SCH (08:23)
[2018-10-13] MEDS: THIAMINE HCL 100 MG TABLET PO SCH (08:23)
[2018-10-13] MEDS: ENSURE ENLIVE 237 ML CAN PO SCH (08:31)
[2018-10-13] MEDS: TBO-FILGRASTIM 480 MCG/0.8 ML SYR SQ SCH (08:32)
[2018-10-13] MEDS ORDERED: POTASSIUM CL SA 10 MEQ TAB PO ONE (09:00)
[2018-10-13] MEDS: SOD FERRIC GLUC COMPLX/SUCROSE 125 MG in NA CHLORIDE 0.9% 100 ML IV SCH (10:05)
[2018-10-13 14:53] VITALS: BP 142/60; TEMP 97.4
--- NOTE | 2018-10-13 18:24 | P.DS ---
Admission Date: 10/09/18 Discharge Date: 10/13/18 Primary Care Provider: Oncology-Dr. Leonard Disposition: [facility] Discharge Condition: GOOD Reason for Admission: right lower quadrant SQ abscess Consultations: General surgery Procedures: Incision and drainage - Problems (1) Sepsis Status: Acute Qualifiers: Sepsis type: Pseudomonas Qualified Code(s): A41.52 - Sepsis due to Pseudomonas (2) Necrotizing fasciitis Status: Acute (3) Colon cancer Status: Chronic Qualifiers: Colon location: unspecified part of colon Qualified Code(s): C18.9 - Malignant neoplasm of colon, unspecified (4) History of DVT (deep vein thrombosis) Status: Chronic (5) Hypothyroidism Status: Chronic Qualifiers: Hypothyroidism type: acquired Qualified Code(s): E03.9 - Hypothyroidism, unspecified (6) GERD (gastroesophageal reflux disease) Status: Chronic Qualifiers: Esophagitis presence: without esophagitis Qualified Code(s): K21.9 - Gastro -esophageal reflux disease without esophagitis Brief History of Present Illness: Mr Recinos id a 73 years old male with history of DVT on Eliquis treatment, colon cancer, on chemotherapy treatment, last time about 1 week ago, presented to ED complaining of right lower quedrant pain. He has an indurated, redness area with 2 wounds with necrotic tissue. He states that his symptomas started about 2 days ago. The wounds were getting worse very fast. No documented fever at home, but was febrile at arrival 100.4 F. Lab work remarkable for 2.2 K WBC count, ANC 2.0, anemic 7.9 mg/dl, plt 121. CT abd/ pelvis remarkable for a large SQ abscess on the right lower quadrant. Hospital Course: Overall during the hospital stay patient remained stable Patient was initially admitted to the hospital for sepsis secondary to necrotizing fasciitis of the right lower quadrant extending to the groin area. General surgery was consulted here in the hospital. Patient was started on IV antibiotics. Patient also had wound culture along with blood culture collected at that time. General surgery took the patient for incision and drainage were patient was noticed to have extensive necrotizing fasciitis to the area which was cleaned out extensively by debridement. Patient was then taken back again to the OR in next 48 hr and had debridement again of the affected area. Wound culture and blood cultures were collected which were positive for blood culture for Pseudomonas and wound culture was positive for multidrug resistant E. coli, strep bovis and morabilla. Patient's antibiotics were changed to IV meropenem and vancomycin to cover for the bacteria growing in blood and bold. Patient had marked improvement in his symptoms and his sepsis did resolve in 48-72 hr while here in the hospital. At that time patient was referred over to a long- term acute care facility for placement for daily wound care changes along with IV antibiotics. Patient was accepted at [facility] and thus was transferred there for further care. Patient also has history of colon cancer currently on chemotherapy initially when presenting to the ED had WBC count of 1.1 with absolute neutrophil count less than 1000. Patient was given 1 time dose of granix here in the hospital. Patient's WBC on discharge was 17 point likely secondary to reaction from cry next. Patient's wound was clean dry and intact with packing. Patient was to continue on IV antibiotics at the [facility] long- term acute care facility. Vital Signs/Physical Exam: Temp Pulse Resp BP Pulse Ox 97.4 F 63 13 142/60 H 98 10/13/18 12:00 10/13/18 14:00 10/13/18 14:00 10/13/18 14:00 10/13/18 14:00 General: Alert, In no apparent distress HEENT: Atraumatic, PERRLA, EOMI Neck: Supple, JVD not distended Respiratory: Clear to auscultation bilaterally, Normal air movement Cardiovascular: Regular rate/rhythm, Normal S1 S2 Gastrointestinal: Normal bowel sounds, Tenderness Musculoskeletal: No tenderness Integumentary: Skin breakdown, Skin lesion, Tenderness/swelling, Erythema, Warmth Neurological: Normal speech, Normal tone, Normal affect Lymphatics: No axilla or inguinal lymphadenopathy Laboratory Data at Discharge: WBC 17.6 K/uL (4.3-10.9) H D 10/13/18 04:38 Hgb 9.4 g/dL (13.6-17.9) L 10/13/18 04:38 Hct 28.8 % (39.6-49.0) L 10/13/18 04:38 Plt Count 175 K/uL (152-406) 10/13/18 04:38 PT 15.0 SECONDS (9.5-12.5) H 10/13/18 04:38 INR 1.28 10/13/18 04:38 APTT 22.8 SECONDS (24.3-36.9) L 10/08/18 23:05 Sodium 141 mmol/L (136-145) 10/13/18 04:38 Potassium 3.5 mmol/L (3.5-5.1) 10/13/18 04:38 BUN 7 mg/dL (7-18) 10/13/18 04:38 Creatinine 0.75 mg/dL (0.55-1.3) 10/13/18 04:38 Glucose 78 mg/dL (74-106) 10/13/18 04:38 Magnesium 2.0 mg/dL (1.8-2.4) 10/13/18 04:38 Home Medications: Apixaban [Eliquis *] 5 mg PO BID 10/09/18 Levothyroxine [Synthroid*] 75 mcg PO [id number] 10/09/18 Omeprazole [Prilosec] 40 mg PO DAILY 10/09/18 Patient Discharge Instructions: You are being transferred to LTAC. You will need to continue IV merrem and Vancomycin and daily wound care dressing changes. Diet: Regular Activity: Ad vitaly Followup: Wali Morocho MD [ACTIVE - CAN ADMIT] - Alfred Fam MD [ACTIVE - CAN ADMIT] -
--- NOTE | 2018-10-20 02:14 | OP ---
Date of Procedure: 10/09/2018 Surgeon: Alfred Fam MD Preoperative Diagnoses: Abdominal wall necrotizing fascitis; metastatic colon cancer, on current jesus motherapy. Postoperative Diagnoses: Abdominal wall necrotizing fascitis; metastatic colon cancer, on current ch emotherapy. Primary Procedure: Wide resection down to fascia and muscle of the abdominal wall necrotizing fascit is, it is an area about 20 x 15 x 3 cm approximately. Pulse lavage. Specimens: Necrotic tissue. Indications: This is a case of a male with history of chemotherapy for metastatic colon cancer. The y are in the process of looking for alternative. Still, he has received chemotherapy recently. He c omes with these necrotic ulcers in the abdominal wall, immediately recognized, foul smelling. You ca n smell that up to the hallway. I immediately saw the patient, immediately explained to him the need for emergent debridement of that area since I believe it could be necrotizing fascitis. Also, I ask ed for ICU admission for this hospital in intensive care. The patient was fully explained the need f or a radical debridement immediately of those areas with medical benefits, alternatives, and risks th at include but are not limited to infection, bleeding, damage to adjacent structures, anesthesia comp lications, nonhealing wound, KS, and even . He also understands this might not relieve any symp toms and he might need more than one surgical intervention. Unfortunately, he is in a condition with weak immune system, so he might go into sepsis shock and might not survive this event; he is fully a wetzel of that. Description Of Procedure: He was brought to the operating room, placed in supine position. Anesthes ia was induced emergently. The abdominal area was prepped and draped in the usual sterile fashion. We proceeded to go to the necrotic area and, indeed, we found all this necrotic fat present. The [facility] er that he had on the top "when you go through them, you have all this necrotic tissue present in the abdominal wall going down to the muscle. You can even see a part of the iliac crest muscle in that region too." It does not seem to be going inside the abdomen, so we proceeded to do a profuse debrid ement of that. The muscle damaged the necrotic tissue until all that was complete. We did pulse lav age for at least 4-5 L of saline to be able to clean this area. After that, we proceeded to pack the area with wet-to-dry dressing, and sent him to the ICU. The patient tolerated the procedure well. Hemostasis was obtained before closure. This patient will be in the ICU. We requested Infectious Di sease evaluation. He has leukopenia. We did not offer at this moment hyperbaric treatment in this i nstitution. The patient does not want to leave to another institution at this moment. So, in the ne xt 24 to 48 hours, let us see how this define. He might need more than one surgical intervention. LALIT/MODL Voice ID: [id number] Report ID: [id number]
== END 2018-10-13 15:00 | DRG 854 ==
LOC: ER 22:08 → ERHOLD 10-09 04:07 → 4TH 10-09 05:12 → 3RD-ICU 10-09 17:47
PROVIDERS: ADMIT Internal Medicine; ATTEND Family Medicine
PROC: 0KBK0ZZ Excision of Right Abdomen Muscle, Open Approach (ICD-10-PCS; 2018-10-09)
PROC: 0KBL0ZZ Excision of Left Abdomen Muscle, Open Approach (ICD-10-PCS; principal; 2018-10-09 14:45)
DX: A41.52 Sepsis due to Pseudomonas (principal); L02.211 Cutaneous abscess of abdominal wall; C18.9 Malignant neoplasm of colon, unspecified; C79.9 Secondary malignant neoplasm of unspecified site; E44.0 Moderate protein-calorie malnutrition; D61.818 Other pancytopenia; N49.3 Fournier gangrene; B96.20 Unspecified Escherichia coli [E. coli] as the cause of diseases classified elsewhere; B95.4 Other streptococcus as the cause of diseases classified elsewhere; Z16.12 Extended spectrum beta lactamase (ESBL) resistance; E03.9 Hypothyroidism, unspecified; D63.8 Anemia in other chronic diseases classified elsewhere; D50.9 Iron deficiency anemia, unspecified; Z68.21 Body mass index [BMI] 21.0-21.9, adult; E86.0 Dehydration; E87.6 Hypokalemia; K21.9 Gastro-esophageal reflux disease without esophagitis; K44.9 Diaphragmatic hernia without obstruction or gangrene; Z79.01 Long term (current) use of anticoagulants; Z86.718 Personal history of other venous thrombosis and embolism; Z90.49 Acquired absence of other specified parts of digestive tract; Z88.0 Allergy status to penicillin
CPT/HCPCS: 36415; 74177; 80048; 80202; 82728; 83010; 83540; 83605; 83615; 83735; 84145; 84439; 84443; 84466; 85014; 85018; 85025; 85044; 85610; 85730; 87040; 87070; 87075; 87077; 87185; 87186; 87205; 88304; 96365; 96366; 96367; 99285; C9113; J0330; J1446; J2250; J2270; J2370; J2405; J2704; J2710; J2916; J3010; J3475; J7030; Q9967

== ENCOUNTER 2018-12-01 21:22 | Emergency (ER) | payer OTHER ==
--- OUTSIDE RECORDS SUMMARY | 2018-12-01 21:24 | XMS REPORT | Clinical Summary ---
:1945 Author Organization [facility] Address [address] [place] [id number] Care Team Providers Name Role Phone Trell Godwin MD Primary Care Provider Allergies Active Allergy Reactions Severity Noted Date Comments Penicillin G 11/05/2017 Medications Medication Sig Dispensed Refills Start Date End Date Status traMADol (ULTRAM) 50 mg 0 10/08/2017 Active tablet atorvastatin (LIPITOR) 0 09/20/2017 Active 40 MG tablet levothyroxine 0 10/02/2017 Active (SYNTHROID, LEVOXYL) 112 mcg tablet multivit-min/FA/lycopen/ Take by mouth. 0 Active lutein (CENTRUM SILVER MEN ORAL) omeprazole (PriLOSEC) 40 Take 40 mg by 0 Active MG capsule mouth daily. aspirin (ECOTRIN) 81 MG Take 81 mg by 0 Active enteric coated tablet mouth daily. cholecalciferol, vitamin Take 2,000 Units 0 Active D3, (VITAMIN D3) 2,000 by mouth daily. 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) after 11/30/2017 Family History Medical History Relation Name Comments [...] Taken Blood Pressure 165/84 04/16/2018 9:46 AM CONSULTING APPLICATION ENGINEER Pulse 67 04/16/2018 9:46 AM CONSULTING APPLICATION ENGINEER Temperature 36.8 C (98.2 F) 04/16/2018 9:46 AM CONSULTING APPLICATION ENGINEER Respiratory Rate - - Oxygen Saturation - - Inhaled Oxygen Concentration - - Weight 53.1 kg (117 lb) 12/11/2017 1:35 PM CDT Height - - Body Mass Index 15.02 11/05/2017 5:49 PM CDT Plan of Treatment Health Maintenance Due Date Last Done Comments COLONOSCOPY SCREENING 1993 SHINGLES VACCINES (#1) 1993 65+ PNEUMOCOCCAL VACCINE (1 of 2 - PCV13) 01/14/2008 INFLUENZA VACCINE 12/10/2018 Results Not on fileafter 11/30/2017 Insurance Payer Benefit Plan / Subscriber ID Effective Dates Phone Address Type Group MEDICARE MEDICARE PART A xxxxxxxxxx 2008-Present [place], [place] Medicare AND B AETNA AETNA PPO OPEN xxxxxxxxx 2000-Present PPO CHOICE Advance Directives Patient has advance care planning documents on file. For more information, please contact:[place] [address]
--- OUTSIDE RECORDS SUMMARY | 2018-12-01 21:24 | XMS REPORT | Clinical Summary ---
:1945 Author Organization [facility] Address [address] [place] [address] Care Team Providers Name Role Phone Nelsy Kumar Primary Care Provider Allergies Active Allergy Reactions Severity Noted Date Comments Penicillins Swelling High 11/10/2017 Medications Medication Sig Dispensed Refills Start Date End Date Status atorvastatin (LIPITOR) Take 40 mg by 0 Active 40 MG tablet mouth daily. lisinopril Take 5 mg by 0 Active (PRINIVIL,ZESTRIL) 5 MG mouth daily. tablet levothyroxine Take 112 mcg by 0 Active (SYNTHROID, LEVOTHROID) mouth Every 112 MCG tablet morning on an empty stomach. OMEPRAZOLE ORAL Take by mouth 0 Active daily. cyanocobalamin 2000 MCG Take 2,000 mcg 0 Active tablet by mouth daily. cholecalciferol, vitamin Take 5,000 Units 0 Active D3, 5,000 unit Tab by mouth daily. TURMERIC ROOT EXTRACT Take by mouth 0 Active ORAL daily. gnlxwuoe-imss-pma-folic Take by mouth 0 Active acid daily. (SIKMVKSCKLDC-VPZF-LMDEA ALS-FOLIC ACID) 3,500-18-0.4 unit-mg-mg Chew Active Problems Problem Noted Date Adenoma of ascending colon 11/14/2017 Immunizations Name Dates Previously Given Next Due [...] travel history available. Last Filed Vital Signs Not on file Plan of Treatment Not on file Procedures Procedure Name Priority Date/Time Associated Diagnosis Comments INTRAOPERATIVE PATH REPORT 08/21/2018 10:02 AM - SCAN CDT after 11/30/2017 Results INTRAOPERATIVE PATH REPORT - SCAN (08/21/2018 10:02 AM CDT) Narrative Performed At after 11/30/2017 Insurance Payer Benefit Plan / Group Subscriber ID Type Phone Address MEDICARE MEDICARE A B xxxxxxxxxx Medicare AETNA - [place] CARE AETNA INDEMNITY NON CONTR xxxxxxxxx Comm Advance Directives Patient has advance care planning documents, and code status on file. For more information, please contact:[address] [phone] Code Status Date Activated Date Inactivated Comments Full Code 11/14/2017 2:10 PM 11/17/2017 5:49 PM This code status was determined by: Patient
--- OUTSIDE RECORDS SUMMARY | 2018-12-01 21:25 | XMS REPORT ---
:1945 [facility] [address] [place] [address] [address]. [address] [place] [address] Care Team Providers Name Role Phone SHRUTHI GREENE Unavailable Unavailable Problems This patient has no known problems. Allergies, Adverse Reactions, Alerts This patient has no known allergies or adverse reactions. Medications This patient has no known medications. Results Test Description Test Time Test Comments Text Results Atomic Results Result Comments TISSUE EXAM 2018-05-05 18:31:00 Surgical Pathology Report Case: [id number] Authorizing Provider: Shruthi Greene MD Collected: 11/14/2017 1015 Ordering Location: [facility] Received: 11/14/2017 1019 SERVICES Pathologist: Melia De Anda MD Specimens: A) - Abdomen, ABDOMINAL WALL ABCESS AND CANCER B) - Large Intestine, Colon - Right/Ascending, perforated and abcessed C) - Abdomen, Abdominal wall perforated tumor This addendum is being issued to report the results of additional biomarker testing performed at [facility]. RESULT: - BRAF mutation: DETECTED Please refer to attached scanned report for further results. CPT: [id number] electronically signed by Melia De Anda MD on 05/05/2018 at 6:31 PMThe addendum is issued to report the results of molecular tests performed at [facility]. RESULTS: - NRAS MUTATION: NOT DETECTED - [...] IS PRESENT Signing Pathologist Direct Phone Line: [phone] signed by Melia De Anda MD on [...] pN0 ADDITIONAL FINDINGS Additional Pathologic Findings: Adenoma(s) [id number] of ascending colonA. Abdomen; B. Large intestine, [...] between the fibrous and friable areas. A field representatives director section is submitted for frozen evaluation as [...] 0.1 to 0.5 cm in greatest dimension. Cyber Software Engineer sections are submitted as follows: Ink code: [...] bowel segment without tumor; B5 through B13, field representatives director tumor, including full thickness sections; B14, colon polyp; B15, Cyber Software Engineer section grossly normal mucosa toward proximal margin; B16, field representatives director grossly normal colonic mucosa toward distal of first bowel segment; B17, field representatives director area of transmural defect in second bowel segment; B18, field representatives director grossly normal mucosa of second bowel segment; B19, three candidate lymph nodes, whole; B20, four candidate lymph nodes, whole; B21, four candidate lymph nodes, whole; B22, three candidate lymph nodes, whole; B23, five candidate lymph nodes, whole; B24, two candidate lymph nodes, whole. B25, field representatives director of tubular structure; B26, radial margin, en face.C. Received in formalin labeled "abdomen tissue" is a 7.8 x 4.2 x 1.6 cm aggregate of alfaro-white to alfaro-yellow fibrous to soft and friable soft tissue. Cyber Software Engineer sections are submitted in Cassettes C1 to [...] developed and its performance characteristics determined by [facility], Pathology Laboratory. It has not been cleared [...] Test Item Value Reference Range Comments CULTURE ([employer]) (test nfws=1783) 1+ Angelica albicans FUNGUS SMEAR (NarrativeAKER) (test urio=0380) No fungi seen ANAEROBIC [id number] 08:16:00 Test Item Value Reference Range Comments CULTURE (BEAKER) (test gcaa=8936) 3+ Prevotella species SURGICALLY OBTAINED CULTURE + GRAM [id number] 15:35:00 Test Item Value Reference Range Comments CULTURE (BEAKER) (test PSEUDOMONAS 2+ Pseudomonas lwfr=3273) AERUGINOSA aeruginosa Amikacin (test code=1) Susceptible 0-16 , Resistant <0 or >16 Aztreonam (test Susceptible 0-8 , code=32) Resistant <0 or >8 Cefepime (test Susceptible 0-8 , code=51) Resistant <0 or >8 Ceftazidime (test Susceptible 0-8 , code=27) Resistant <0 or >8 Ciprofloxacin (test Susceptible 0-1 , code=7) Resistant <0 or >1 Doripenem (test Susceptible 0-2 , ksnm=493) Resistant <0 or >2 Gentamicin (test Susceptible [...] CULTURE (BEAKER) (test ENTEROCOCCUS SPECIES 1+ Enterococcus xtom=4515) species Ampicillin (test code=26) Linezolid (test code=40) Vancomycin (test code=13) CULTURE (BEAKER) (test 1+ Viridans vsbx=6028) Streptococcus CULTURE (BEAKER) (test 1+ Diphtheroid wblk=3446) GRAM STAIN RESULT <1+ WBCs (BEAKER) (test teai=8284) GRAM STAIN RESULT <1+ gram negative (BEAKER) (test rods jyhn=419644) GRAM STAIN RESULT 2+ gram positive (BEAKER) (test cocci in pairs rxjq=093157) GRAM STAIN RESULT <1+ gram positive (BEAKER) (test rods jvja=915658) [id number] 06:33:00 Test Item Value Reference Range Comments MAGNESIUM (BEAKER) (test roxa=428) 1.8 mg/dL 1.6-2.6 BASIC METABOLIC [id number] 06:33:00 Test Item Value Reference Range Comments SODIUM (BEAKER) (test 132 meq/L 136-145 iyvd=275) POTASSIUM (BEAKER) (test 3.6 meq/L 3.5-5.1 kimu=968) CHLORIDE (BEAKER) (test 102 meq/L 98-107 xpwn=117) CO2 (BEAKER) (test 23 meq/L 22-29 lwej=516) BLOOD UREA NITROGEN 19 mg/dL 7-21 (BEAKER) (test kspw=368) CREATININE (BEAKER) (test 0.78 mg/dL 0.57-1.25 uwoj=411) GLUCOSE RANDOM (BEAKER) 87 mg/dL 70-105 (test quwu=600) CALCIUM (BEAKER) (test 8.4 mg/dL 8.4-10.2 gpbg=651) EGFR (BEAKER) (test 97 mL/min/1.73 sq m ESTIMATED GFR IS NOT stwt=5642) ACCURATE CREATININE CLEARANCE IN PREDICTING GLOMERULAR FILTRATION RATE. ESTIMATED GFR IS NOT APPLICABLE FOR DIALYSIS PATIENTS. CBC W/PLT COUNT & AUTO [id number] 05:59:00 Test Item Value Reference Range Comments WHITE BLOOD CELL COUNT (BEAKER) (test hvob=057) 10.6 K/ L 3.5-10.5 RED BLOOD CELL COUNT (BEAKER) (test xtey=544) 2.95 M/ L 4.63-6.08 HEMOGLOBIN (BEAKER) (test hzlh=980) 8.5 GM/DL 13.7-17.5 HEMATOCRIT (BEAKER) (test aeni=186) 26.2 % 40.1-51.0 MEAN CORPUSCULAR VOLUME (BEAKER) (test qqth=251) 88.8 fL 79.0-92.2 MEAN CORPUSCULAR HEMOGLOBIN (BEAKER) (test 28.8 pg 25.7-32.2 mmxg=257) MEAN CORPUSCULAR HEMOGLOBIN CONC (BEAKER) (test 32.4 GM/DL 32.3-36.5 oeqk=030) RED CELL DISTRIBUTION WIDTH (BEAKER) (test 13.9 % 11.6-14.4 quvk=639) PLATELET COUNT (BEAKER) (test mmdi=575) 292 K/CU MM 150-450 MEAN PLATELET VOLUME (BEAKER) (test qgps=980) 9.7 fL 9.4-12.4 NUCLEATED RED BLOOD CELLS (BEAKER) (test 0 /100 WBC 0-0 kmch=296) NEUTROPHILS RELATIVE PERCENT (BEAKER) (test 92 % wame=166) LYMPHOCYTES RELATIVE PERCENT (BEAKER) (test 4 % migk=588) MONOCYTES RELATIVE PERCENT (BEAKER) (test 3 % nups=559) EOSINOPHILS RELATIVE PERCENT (BEAKER) (test 1 % jaln=485) BASOPHILS RELATIVE PERCENT (BEAKER) (test 0 % bsvt=880) NEUTROPHILS ABSOLUTE COUNT (BEAKER) (test 9.72 K/ L 1.78-5.38 yvle=333) LYMPHOCYTES ABSOLUTE COUNT (BEAKER) (test 0.38 K/ L 1.32-3.57 dcae=201) MONOCYTES ABSOLUTE COUNT (BEAKER) (test 0.31 K/ L 0.30-0.82 xstb=420) EOSINOPHILS ABSOLUTE COUNT (BEAKER) (test 0.07 K/ L 0.04-0.54 ngsb=133) BASOPHILS ABSOLUTE COUNT (BEAKER) (test 0.02 K/ L 0.01-0.08 ruon=294) IMMATURE GRANULOCYTES-RELATIVE PERCENT (BEAKER) 1 % 0-1 (test nphy=0257) [id number] 07:20:00 Test Item Value Reference Range Comments MAGNESIUM (BEAKER) (test hqdx=750) 1.8 mg/dL 1.6-2.6 BASIC METABOLIC [id number] 07:20:00 Test Item Value Reference Range Comments SODIUM (BEAKER) (test 131 meq/L 136-145 aote=669) POTASSIUM (BEAKER) (test 3.9 meq/L 3.5-5.1 yxtk=309) CHLORIDE (BEAKER) (test 98 meq/L 98-107 sfjn=219) CO2 (BEAKER) (test 26 meq/L 22-29 vwcm=721) BLOOD UREA NITROGEN 26 mg/dL 7-21 (BEAKER) (test qtpd=047) CREATININE (BEAKER) (test 1.00 mg/dL 0.57-1.25 syuk=825) GLUCOSE RANDOM (BEAKER) 116 mg/dL 70-105 (test eszl=189) CALCIUM (BEAKER) (test 8.9 mg/dL 8.4-10.2 pizh=655) EGFR (BEAKER) (test 73 mL/min/1.73 sq m ESTIMATED GFR IS NOT vpjk=4184) ACCURATE CREATININE CLEARANCE IN PREDICTING GLOMERULAR FILTRATION RATE. ESTIMATED GFR IS NOT APPLICABLE FOR DIALYSIS PATIENTS. CBC (HEMOGRAM ONLY)2017-11-16 05:18:00 Test Item Value Reference Range Comments WHITE BLOOD CELL COUNT (BEAKER) (test cuzt=712) 15.4 K/ L 3.5-10.5 RED BLOOD CELL COUNT (BEAKER) (test mtvq=890) 3.54 M/ L 4.63-6.08 HEMOGLOBIN (BEAKER) (test ysny=738) 10.4 GM/DL 13.7-17.5 HEMATOCRIT (BEAKER) (test qemw=728) 31.6 % 40.1-51.0 MEAN CORPUSCULAR VOLUME (BEAKER) (test ntlh=443) 89.3 fL 79.0-92.2 MEAN CORPUSCULAR HEMOGLOBIN (BEAKER) (test 29.4 pg 25.7-32.2 qakh=133) MEAN CORPUSCULAR HEMOGLOBIN CONC (BEAKER) (test 32.9 GM/DL 32.3-36.5 fkle=891) RED CELL DISTRIBUTION WIDTH (BEAKER) (test 13.7 % 11.6-14.4 ziyd=261) PLATELET COUNT (BEAKER) (test jpca=176) 319 K/CU MM 150-450 MEAN PLATELET VOLUME (BEAKER) (test onhs=736) 10.5 fL 9.4-12.4 NUCLEATED RED BLOOD CELLS (BEAKER) (test 0 /100 WBC 0-0 lsae=184) [id number] 06:33:00 Test Item Value Reference Range Comments MAGNESIUM (BEAKER) (test ebqj=903) 1.7 mg/dL 1.6-2.6 BASIC METABOLIC [id number] 06:33:00 Test Item Value Reference Range Comments SODIUM (BEAKER) (test 129 meq/L 136-145 bctp=582) POTASSIUM (BEAKER) (test 3.8 meq/L 3.5-5.1 dned=979) CHLORIDE (BEAKER) (test 101 meq/L 98-107 svfr=185) CO2 (BEAKER) (test 23 meq/L 22-29 odzd=882) BLOOD UREA NITROGEN 27 mg/dL 7-21 (BEAKER) (test zgmq=268) CREATININE (BEAKER) (test 1.11 mg/dL 0.57-1.25 nhye=816) GLUCOSE RANDOM (BEAKER) 113 mg/dL 70-105 (test dkvp=378) CALCIUM (BEAKER) (test 8.3 mg/dL 8.4-10.2 qsca=905) EGFR (BEAKER) (test 65 mL/min/1.73 sq m ESTIMATED GFR IS NOT qifo=0952) ACCURATE CREATININE CLEARANCE IN PREDICTING GLOMERULAR FILTRATION RATE. ESTIMATED GFR IS NOT APPLICABLE FOR DIALYSIS PATIENTS. CBC (HEMOGRAM ONLY)2017-11-15 05:14:00 Test Item Value Reference Range Comments WHITE BLOOD CELL COUNT (BEAKER) (test gtmz=239) 9.5 K/ L 3.5-10.5 RED BLOOD CELL COUNT (BEAKER) (test egea=850) 3.49 M/ L 4.63-6.08 HEMOGLOBIN (BEAKER) (test wvor=568) 10.2 GM/DL 13.7-17.5 HEMATOCRIT (BEAKER) (test ffxe=811) 30.7 % 40.1-51.0 MEAN CORPUSCULAR VOLUME (BEAKER) (test fpam=164) 88.0 fL 79.0-92.2 MEAN CORPUSCULAR HEMOGLOBIN (BEAKER) (test 29.2 pg 25.7-32.2 ajkl=097) MEAN CORPUSCULAR HEMOGLOBIN CONC (BEAKER) (test 33.2 GM/DL 32.3-36.5 cbeh=969) RED CELL DISTRIBUTION WIDTH (BEAKER) (test 13.8 % 11.6-14.4 cojk=398) PLATELET COUNT (BEAKER) (test lyde=197) 314 K/CU MM 150-450 MEAN PLATELET VOLUME (BEAKER) (test yvem=889) 9.6 fL 9.4-12.4 NUCLEATED RED BLOOD CELLS (BEAKER) (test 0 /100 WBC 0-0 nibb=845) BASIC METABOLIC [id number] 16:22:00 Test Item Value Reference Range Comments SODIUM (BEAKER) (test 132 meq/L 136-145 mayq=734) POTASSIUM (BEAKER) (test 3.9 meq/L 3.5-5.1 rbob=858) CHLORIDE (BEAKER) (test 96 meq/L 98-107 mzxa=763) CO2 (BEAKER) (test 26 meq/L 22-29 aeju=270) BLOOD UREA NITROGEN 30 mg/dL 7-21 (BEAKER) (test jsgv=567) CREATININE (BEAKER) (test 1.09 mg/dL 0.57-1.25 itut=645) GLUCOSE RANDOM (BEAKER) 86 mg/dL 70-105 (test xjgn=040) CALCIUM (BEAKER) (test 9.8 mg/dL 8.4-10.2 czqu=338) EGFR (MAY) (test 66 mL/min/1.73 sq m ESTIMATED GFR IS NOT opxi=0805) ACCURATE CREATININE CLEARANCE IN PREDICTING GLOMERULAR FILTRATION RATE. ESTIMATED GFR IS NOT APPLICABLE FOR DIALYSIS PATIENTS. [id number] 15:56:00 Test Item Value Reference Range Comments HEMOGLOBIN (MAY) (test zpnj=834) 11.2 GM/DL 13.7-17.5 PLATELET [id number] 15:56:00 Test Item Value Reference Range Comments PLATELET COUNT (MAY) (test iqlw=345) 365 K/CU MM 150-450
[2018-12-01 22:52] LABS: Absolute Lymphocytes (CBC) 0.4 K/uL (0.7-4.9); Basophils % 0.3 % (0-1.3); Hematocrit 23.3 % (39.6-49.0); Lymphocytes % 5.4 % (15.3-44.8); MPV 6.9 fL (7.6-11.3); RBC Red Blood Cell Count 2.44 M/uL (4.33-5.43)
[2018-12-01 23:04] LABS: ALT/SGPT 22 U/L (12-78); AST/SGOT 17 U/L (15-37); Albumin 2.1 g/dL (3.4-5.0); Alkaline Phosphatase 95 U/L (45-117); BUN Blood Urea Nitrogen 19 mg/dL (7-18); Bicarbonate 30 mmol/L (21-32); Bilirubin Direct < 0.1 mg/dL (0-0.2); Bilirubin Total 0.2 mg/dL (0.2-1.0); Glucose Level 90 mg/dL (74-106); Lipase 97 U/L (73-393); Potassium 3.5 mmol/L (3.5-5.1); Protein, Total 5.9 g/dL (6.4-8.2); Sodium Level 140 mmol/L (136-145)
[2018-12-02 00:15] LABS: Platelet Estimate ADEQ; Urine White Blood Cell Casts OK
[2018-12-02 00:16] LABS: Blood Morphology Comment NOT SEEN (NOT SEEN)
[2018-12-02 00:42] LABS: Urine Blood TRACE (NEG); Urine Glucose NEGATIVE (NEG); Urine Protein NEGATIVE (NEG); Urine Specific Gravity 1.015 (1.005-1.030)
--- NOTE | 2018-12-02 02:01 | ER ---
Nurse's Notes [facility] Name: Hoang Recinos Age: 73 yrs Sex: Male : 1945 Arrival Date: 12/01/2018 Time: 21:27 Bed 5 Private MD: Diagnosis: Intestinal obstruction;enterocutaneous fistula Presentation: 12/01 21:27 Presenting complaint: RN for [facility] - pt with necrotizing fascitis to abd. pt ak1 wound on abd started leaking black "bowl" pt with intermittent N/V X3 days. pt A\\T\\OX4 and ambulatory. Transition of care: patient was not received from another setting of care. Onset of symptoms is unknown. Risk Assessment: Do you want to hurt yourself or someone else? Patient reports no desire to harm self or others. Initial Sepsis Screen: Does the patient meet any 2 criteria? No. Patient's initial sepsis screen is negative. Does the patient have a suspected source of infection? No. Patient's initial sepsis screen is negative. Note dressing changed to wound on abd at 1900. Care prior to arrival: None. 21:27 Method Of Arrival: EMS: [facility] ak1 21:27 Acuity: SUMMER 3 ak1 Triage Assessment: 21:36 General: Appears in no apparent distress. Behavior is calm, cooperative. ak1 Historical: - Allergies: 21:36 PENICILLINS; ak1 21:36 Tylenol-Codeine #3; ak1 - Home Meds: 21:36 Levaquin 500 mg Oral tab 1 tab once daily [Active]; vancomycin oral oral [Active]; ak1 levothyroxine 25 mcg tab [Active]; Thiamine Oral [Active]; Ferrous Sulfate Oral [Active]; pantoprazole oral oral [Active]; cyanocobalamin [Active]; apixaban oral oral [Active]; - PMHx: 21:36 blood clot; colon cancer; necrotizing fascitis; ak1 - PSHx: 21:36 Partial intestine removal; Hernia repair; hand reconstruction; ak1 - Immunization history:: Adult Immunizations unknown. - Social history:: Smoking status: unknown. - Ebola Screening: : No symptoms or risks identified at this time. Screenin:37 Abuse screen: Denies threats or abuse. Denies injuries from another. Nutritional ak1 screening: No deficits noted. Tuberculosis screening: No symptoms or risk factors identified. Fall Risk None identified. Assessment: 21:30 General: Appears uncomfortable, Behavior is calm, cooperative. Pain: Complains of pain tr5 in right lower quadrant Pain does not radiate. Quality of pain is described as aching. Neuro: Level of Consciousness is awake, alert, obeys commands, Oriented to person, place, time. Cardiovascular: Heart tones present Bruits absent Capillary refill < 3 seconds Pulses are all present. Edema is absent. Respiratory: Airway is patent Trachea midline Respiratory effort is even, unlabored, Respiratory pattern is regular, symmetrical, Breath sounds are clear bilaterally. GI: Reports Leaking of bowels from lower right abdominal wound. Odorous, but healthy granulated tissue noted upon inspection. : No signs and/or symptoms were reported regarding the genitourinary system. EENT: No signs and/or symptoms were reported regarding the EENT system. Derm: Wound noted right lower quadrant Wound is odorous, with healthy granulated tissue noted upon inspection. Musculoskeletal: Capillary refill < 3 seconds, Range of motion: intact in all extremities. 22:32 Reassessment: Patient appears in no apparent distress at this time. Patient and/or tr5 family updated on plan of care and expected duration. Pain level reassessed. Patient is alert, oriented x 3, equal unlabored respirations, skin warm/dry/pink. 23:30 Reassessment: Patient appears in no apparent distress at this time. No changes from lp1 previously documented assessment. Patient and/or family updated on plan of care and expected duration. Pain level reassessed. 12/02 02:37 Reassessment: Report given to Chele QURESHI. Pt being transferred to [facility] tr5 15 tower bed 14. 03:30 Reassessment: Patient appears in no apparent distress at this time. Patient and/or tr5 family updated on plan of care and expected duration. Pain level reassessed. Pt on contact isolation. Reported to [facility] for transfer. Vital Signs: 12/01 21:33 BP 165 / 86; Pulse 73; Resp 16; Temp 98.5(O); Pulse Ox 100% on R/A; Weight 64.86 kg tr5 (R); Height 6 ft. 2 in. (187.96 cm) (R); 22:32 BP 145 / 69; Pulse 70; Resp 16; Pulse Ox 99% on R/A; tr5 23:30 BP 143 / 70; Pulse 72; Resp 16; Pulse Ox 99% on R/A; lp1 12/02 00:30 BP 160 / 90; Pulse 65; Resp 19; Pulse Ox 99% on R/A; lp1 02:23 BP 132 / 72; Pulse 85; Resp 16; Pulse Ox 99% on R/A; tr5 12/01 21:33 Body Mass Index 18.36 (64.86 kg, 187.96 cm) tr5 ED Course: 12/01 21:27 Patient arrived in ED. ak1 21:31 Triage completed. ak1 21:31 Coral Morris, RN is Primary Nurse. lp1 21:36 Arm band placed on Patient placed in an exam room, on a stretcher, on pulse oximetry, ak1 Patient notified of wait time. 21:37 Patient has correct armband on for positive identification. Placed in gown. Bed in low ak1 position. Call light in reach. Side rails up X2. Adult w/ patient. Pulse ox on. NIBP on. 21:39 Miguel Wills MD is Attending Physician. tw4 23:09 Notified ED physician of a critical lab result(s). 7.8 Hgb. ak1 23:37 CT Abd/Pelvis - IV Contrast Only In Process Unspecified. EDNC 12/02 00:30 Accessed PICC line. Clean \\T\\ dry. Dressing intact. Good blood return. Flushes easily. tr5 Present prior to ER arrival. 03:57 No provider procedures requiring assistance completed. Patient transferred, IV remains tr5 in place. Administered Medications: No medications were administered Outcome: 01:59 ER care complete, transfer ordered by . tw4 03:57 Transferred by ground EMS to [facility], Transfer form completed. tr5 X-rays sent w/ patient. 03:57 Condition: stable 03:57 Instructed on the need for transfer. 03:58 Patient left the ED. tr5 Signatures: Dispatcher [employer] EDNC Coral Morris, RN RN lp1 Daina Guillen RN RN ak1 Miguel Wills MD MD tw4 Jesse Owusu RN RN tr5 Corrections: (The following items were deleted from the chart) 12/01 21:41 21:33 BP 165 / 86; Pulse 73bpm; Resp 16bpm; Pulse Ox 100% RA; Temp 98.5F Oral; tr5 tr5 12/02 02:04 00:30 Reassessment: Patient appears in no apparent distress at this time. No changes lp1 from previously documented assessment. Patient is alert, oriented x 3, equal unlabored respirations, skin warm/dry/pink. Patient denies pain at this time. lp1
--- NOTE | 2018-12-02 02:02 | EDPHYS ---
Physician Documentation [facility] Name: Hoang Recinos Age: 73 yrs Sex: Male : 1945 Arrival Date: 12/01/2018 Time: 21:27 Bed 5 Private MD: ED Physician Miguel Wills HPI: 12/02 03:01 This 73 yrs old Male presents to ER via EMS with complaints of wound leaking. tw4 03:01 The patient presents with abdominal pain. Onset: The symptoms/episode began/occurred tw4 today. The symptoms do not radiate. Associated signs and symptoms: Pertinent positives: chronic wound contains stool. Modifying factors: The symptoms are alleviated by nothing, the symptoms are aggravated by nothing. Severity of pain: At its worst the pain was mild in the emergency department the pain is unchanged. The patient has not experienced similar symptoms in the past. Historical: - Allergies: 12/01 21:36 PENICILLINS; ak1 21:36 Tylenol-Codeine #3; ak1 - Home Meds: 21:36 Levaquin 500 mg Oral tab 1 tab once daily [Active]; vancomycin oral oral [Active]; ak1 levothyroxine 25 mcg tab [Active]; Thiamine Oral [Active]; Ferrous Sulfate Oral [Active]; pantoprazole oral oral [Active]; cyanocobalamin [Active]; apixaban oral oral [Active]; - PMHx: 21:36 blood clot; colon cancer; necrotizing fascitis; ak1 - PSHx: 21:36 Partial intestine removal; Hernia repair; hand reconstruction; ak1 - Immunization history:: Adult Immunizations unknown. - Social history:: Smoking status: unknown. - Ebola Screening: : No symptoms or risks identified at this time. ROS: 12/02 03:01 Constitutional: Negative for fever, chills, and weight loss, Cardiovascular: Negative tw4 for chest pain, palpitations, and edema, Respiratory: Negative for shortness of breath, cough, wheezing, and pleuritic chest pain, Abdomen/GI: Negative for abdominal pain, nausea, vomiting, diarrhea, and constipation, Back: Negative for injury and pain, MS/Extremity: Negative for injury and deformity. Skin: Positive for Exam: 03:01 Constitutional: This is a well developed, well nourished patient who is awake, alert, tw4 and in no acute distress. Head/Face: Normocephalic, atraumatic. Chest/axilla: Normal chest wall appearance and motion. Nontender with no deformity. No lesions are appreciated. Cardiovascular: Regular rate and rhythm with a normal S1 and S2. No gallops, murmurs, or rubs. Normal PMI, no JVD. No pulse deficits. Respiratory: Lungs have equal breath sounds bilaterally, clear to auscultation and percussion. No rales, rhonchi or wheezes noted. No increased work of breathing, no retractions or nasal flaring. Abdomen/GI: Soft, non-tender, with normal bowel sounds. No distension or tympany. No guarding or rebound. No evidence of tenderness throughout. MS/ Extremity: Pulses equal, no cyanosis. Neurovascular intact. Full, normal range of motion. Neuro: Awake and alert, GCS 15, oriented to person, place, time, and situation. Cranial nerves II-XII grossly intact. Motor strength 5/5 in all extremities. Sensory grossly intact. Cerebellar exam normal. Normal gait. 03:01 Skin: Wound recheck: Chronic wound RLQ with dark discharge base of wound small hole note at the base of the wound. Vital Signs: 12/01 21:33 BP 165 / 86; Pulse 73; Resp 16; Temp 98.5(O); Pulse Ox 100% on R/A; Weight 64.86 kg tr5 (R); Height 6 ft. 2 in. (187.96 cm) (R); 22:32 BP 145 / 69; Pulse 70; Resp 16; Pulse Ox 99% on R/A; tr5 23:30 BP 143 / 70; Pulse 72; Resp 16; Pulse Ox 99% on R/A; lp1 12/02 00:30 BP 160 / 90; Pulse 65; Resp 19; Pulse Ox 99% on R/A; lp1 02:23 BP 132 / 72; Pulse 85; Resp 16; Pulse Ox 99% on R/A; tr5 12/01 21:33 Body Mass Index 18.36 (64.86 kg, 187.96 cm) tr5 MDM: 12/01 21:39 Patient medically screened. 4 12/02 03:01 Data reviewed: vital signs, nurses notes. Counseling: I had a detailed discussion with tw4 the patient and/or guardian regarding: the historical points, exam findings, and any diagnostic results supporting the discharge/admit diagnosis, lab results, radiology results. 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 Pt had previous surgical intervention at [facility] by Dr Greene. D/W Dr Greene will see in consultation and admit to medicine. . 12/01 21:41 Order name: Basic Metabolic Panel [facility] 12/01 21:41 Order name: CBC with Diff [facility] 12/01 21:41 Order name: Creatinine for Radiology [facility] 12/01 21:41 Order name: Hepatic Function [facility] 12/01 21:41 Order name: Lipase [facility] 12/02 00:25 Order name: CBC Smear Scan [facility] 12/01 21:41 Order name: IV Saline Lock; Complete Time: 22:18 [facility] 12/01 21:41 Order name: Labs collected and sent; Complete Time: 22:32 [facility] 12/01 21:41 Order name: Urine Dipstick-Ancillary (obtain specimen); Complete Time: 00:33 [facility] 12/01 21:41 Order name: CT Abd/Pelvis - IV Contrast Only [facility] 12/02 00:36 Order name: Urine Dipstick--Ancillary (enter results) mw2 Administered Medications: No medications were administered Disposition: 12/02/18 01:59 Transfer ordered to [facility]. Diagnosis are Intestinal obstruction, enterocutaneous fistula. - Reason for transfer: Higher level of care. - Accepting physician is Dr Elder. - Condition is Stable. - Problem is new. - Symptoms have improved. Signatures: Dispatcher [employer] [facility] Daina Guillen RN RN ak1 Miguel Wills MD MD tw4 Jesse Owusu, RN RN tr5 Corrections: (The following items were deleted from the chart) 03:58 01:59 12/02/2018 01:59 Transfer ordered to [facility]. Diagnosis is tr5 Intestinal obstruction; enterocutaneous fistula. Reason for transfer: Higher level of care. Accepting physician is Dr Elder. Condition is Stable. Problem is new. Symptoms have improved. tw4
[2018-12-02 05:41] VITALS: TEMP 98.5
[2018-12-02 05:42] VITALS: O2SAT 99
[2018-12-02 05:46] VITALS: BP 132/72
--- NOTE | 2018-12-02 11:20 | RAD REPORT ---
EXAM DESCRIPTION: CT - Abdomen Pelvis W Contrast - 12/02/2018 2:53 am CLINICAL HISTORY: R/o fistula COMPARISON: October 09, 2018. TECHNIQUE: CT ABDOMEN PELVIS WITH IV CONTRAST on 12/01/2018 9:41 PM CDT This exam was performed according to our departmental dose-optimization program, which includes autom ated exposure control, adjustment of the mA and/or kV according to patient size and/or use of iterati ve reconstruction technique. FINDINGS: There is a triangular consolidation in the posterior right lower lobe. Abdomen: The liver is normal in appearance. There is no biliary dilatation. Gallbladder is decompress ed. There is a moderate hiatal hernia. The pancreas and spleen are normal in appearance. Adrenal glan ds are normal. There is a small cyst in the upper pole of the right kidney. There is mild fullness of both renal collecting systems. Abdominal aorta is normal in course and caliber without aneurysm. There is no free air. There is no r etroperitoneal adenopathy. Pelvis: There is large amount of stool throughout the colon. There are multiple dilated small bowel l oops throughout the abdomen. There is a large skin defect in the right lower quadrant with suggestion of a small fistulous connection from the skin into the right lower quadrant peritoneum. There is a r esidual collection of fluid and air in the right lower quadrant superficially measuring 4.8 x 3.6 cm. Urinary bladder is unremarkable. There is no free fluid. Skeleton: There are no acute osseous findings. No suspicious bony lesions. IMPRESSION: Status post extensive resection of right lower quadrant subcutaneous fat with persistent deep presumed abscess just below the operative site with a possible fistulous connection superficial ly. Multiple dilated small bowel loops may represent developing small bowel obstruction. Indeterminate right lower lobe triangular consolidation. If symptoms warrant, CT angiogram of the [address] could be performed to exclude a right lower lobe pulmonary embolus. Electronically signed by: Edilberto Walker MD 12/01/2018 11:49 PM CDT Due to temporary technical issues with the PACS/Fluency reporting system, reports are being signed by the in house radiologist as a courtesy to ensure prompt reporting. The interpreting radiologist is f ully responsible for the content of the report.
== END 2018-12-02 03:58 | disposition short-term general hospital (02) ==
LOC: ER 21:22
DX: K56.609 Unspecified intestinal obstruction, unspecified as to partial versus complete obstruction (principal); Z88.0 Allergy status to penicillin; Z88.6 Allergy status to analgesic agent; Z85.038 Personal history of other malignant neoplasm of large intestine
CPT/HCPCS: 85025; 80048; 36415; 80076; 81003; 83690; 74177; Q9967; 99285

== ENCOUNTER 2018-12-07 17:00 | Inpatient (IN) | payer OTHER ==
--- OUTSIDE RECORDS SUMMARY | 2018-12-07 20:51 | XMS REPORT | Clinical Summary ---
:1945 Author Organization [facility] Address [address] [place] [id number] Care Team Providers Name Role Phone Trell [...] Description 04/16/2018 Office Visit General Surgery Jaime Greene, Malignant neoplasm of ascending colon (HCC) Denisha, (Primary Dx) CORNELL Araujo 12/11/2017 Office Visit General Surgery Jaime Greene, Malignant neoplasm of colon, unspecified part Alagugurusamy, of colon (Primary Dx) CORNELL Araujo after 12/06/2017 Family History Medical History Relation Name Comments [...] Taken Blood Pressure 165/84 04/16/2018 9:46 AM [employer] Pulse 67 04/16/2018 9:46 AM [employer] Temperature 36.8 C (98.2 F) 04/16/2018 9:46 AM [employer] Respiratory Rate - - Oxygen Saturation - [...] INFLUENZA VACCINE 12/10/2018 Results Not on fileafter 12/06/2017 Insurance Payer Benefit Plan / Subscriber ID Effective Dates Phone Address Type Group MEDICARE MEDICARE PART A xxxxxxxxxx 2008-Present [place], [place] Medicare AND B AETNA AETNA PPO OPEN xxxxxxxxx 2000-Present PPO CHOICE Advance Directives Patient has advance care planning documents on file. For more information, please contact:[place] [address]
--- OUTSIDE RECORDS SUMMARY | 2018-12-07 20:53 | XMS REPORT | Clinical Summary ---
:1945 Author Organization [facility] Address [address] [place] [address] Care Team Providers Name Role Phone Nelsy Kumar Primary Care Provider Allergies Active Allergy Reactions Severity Noted Date Comments Codeine Swelling High 12/02/2018 Penicillins Swelling High 11/10/2017 Medications Medication Sig Dispensed Refills Start Date End Date Status OMEPRAZOLE ORAL Take by mouth 0 Active daily. cyanocobalamin 2000 Take 2,000 mcg 0 Active MCG tablet by mouth daily. cholecalciferol, Take 5,000 Units 0 Active vitamin D3, 5,000 by mouth daily. unit Tab TURMERIC ROOT Take by mouth 0 Active EXTRACT ORAL daily. [id number] Take by mouth 0 Active olic acid daily. (MULTIVITAMIN-IRON- MINERALS-FOLIC ACID) 3,500-18-0.4 unit-mg-mg Chew levothyroxine Take 1 tablet 0 12/06/2018 12/06/19 Active (SYNTHROID, (125 mcg total) 20 LEVOTHROID) 125 MCG by mouth Every tablet morning on an empty stomach. acetaminophen Take 2 tablets 30 tablet 0 12/05/2018 11/30/19 Active (TYLENOL) 325 MG (650 mg total) 20 tablet by mouth every 6 (six) hours as needed for up to 360 days. polyethylene glycol Take 17 g by 14 each 0 12/06/2018 Active (GLYCOLAX) 17 gram mouth daily. packet senna-docusate Take 2 tablets 0 12/05/2018 12/05/19 Active (SENOKOT S) 8.6-50 by mouth 20 mg per tablet nightly. triamcinolone Apply 1 0 12/05/2018 Active (KENALOG) in application topical lotion topically 2 (two) times daily. ondansetron Take 1 tablet (4 30 tablet 0 12/05/2018 12/13/19 Active (ZOFRAN) 4 MG mg total) by 19 tablet mouth 3 (three) times daily as needed for Nausea for up to 7 days. atorvastatin Take 40 mg by 0 12/08/19 Discontinued (LIPITOR) 40 MG mouth daily. 19 tablet lisinopril Take 5 mg by 0 12/08/19 Discontinued (PRINIVIL,ZESTRIL) mouth daily. 19 5 MG tablet levothyroxine Take 112 mcg by 0 12/06/19 Discontinued (SYNTHROID, mouth Every 19 LEVOTHROID) 112 MCG morning on an tablet empty stomach. apixaban (ELIQUIS) Take 1 tablet 0 12/05/2018 12/08/19 Discontinued 2.5 mg Tab tablet (2.5 mg total) 19 by mouth 2 (two) times daily. mINOCYCLine Take 1 capsule 12 capsule 0 12/05/2018 12/08/19 Discontinued (MINOCIN,DYNACIN) (100 mg total) 19 100 MG capsule by mouth every 12 (twelve) hours for 6 days. Active Problems Problem Noted Date Palliative care encounter 12/07/2018 Colon cancer 12/03/2018 SBO (small bowel obstruction) 12/02/2018 Right lower quadrant abscess 12/02/2018 Adenoma of ascending colon 11/14/2017 Encounters Date Type Specialty Care Team Description 12/02/2018 - Hospital Encounter Intensive Care Jacinta Chairez Adenoma of ascending colon; 12/07/2018 MD Daniel SBO (small bowel obstruction) ([facility]); Sandra Right lower quadrant abscess (H[facility]); Andrade Severe sepsis ([facility]) MD Cuong 12/02/2018 Travel after 12/06/2017 Immunizations Name Dates Previously Given Next Due [...] Vital Sign Reading Time Taken Blood Pressure 130/62 12/07/2018 6:00 PM CDT Pulse 74 12/07/2018 6:00 PM CDT Temperature 36.7 C (98 F) 12/07/2018 12:00 PM CDT Respiratory Rate 11 12/07/2018 6:00 PM CDT Oxygen Saturation 100% 12/07/2018 6:00 PM CDT Inhaled Oxygen Concentration - - Weight 64.4 kg (141 lb 14.4 oz) 12/02/2018 5:00 AM CDT Height 188 cm (6' 2") 12/02/2018 5:00 AM CDT Body Mass Index 18.22 12/02/2018 5:00 AM CDT Plan of Treatment Not on file Procedures Procedure Name Priority Date/Time Associated Comments Diagnosis TRANSFUSION SERVICE REPORT 12/07/2018 5:50 - SCAN PM CDT HEMOGLOBIN AND HEMATOCRIT Routine 12/07/2018 1:38 Results for this PM CDT procedure are in the results section. MAGNESIUM Routine 12/07/2018 4:39 Results for this AM CDT procedure are in the results section. BASIC METABOLIC PANEL (7) Routine 12/07/2018 4:39 Results for this AM CDT procedure are in the results section. CBC (HEMOGRAM ONLY) Routine 12/07/2018 4:39 Results for this AM CDT procedure are in the results section. TRANSFUSE LEUKO-REDUCED Routine 12/07/2018 4:27 RED BLOOD CELLS AM CDT PREPARE LEUKO-REDUCED RBC Routine 12/07/2018 1:39 Results for this AM CDT procedure are in the results section. HEMOGLOBIN AND HEMATOCRIT Routine 12/07/2018 1:07 Results for this AM CDT procedure are in the results section. HEMOGLOBIN AND HEMATOCRIT PATRICIO 12/06/2018 9:47 Results for this PM CDT procedure are in the results section. LACTIC ACID, VENOUS STAT 12/06/2018 9:46 Results for this PM CDT procedure are in the results section. XR ABDOMEN 1 VIEW Routine 12/06/2018 9:09 Results for this PM CDT procedure are in the results section. XR CHEST 1 VIEW Routine 12/06/2018 9:09 Results for this PORTABLE/BEDSIDE PM CDT procedure are in the results section. TRANSFUSE LEUKO-REDUCED Routine 12/06/2018 8:32 RED BLOOD CELLS PM CDT PREPARE LEUKO-REDUCED RBC STAT 12/06/2018 5:18 Results for this PM CDT procedure are in the results section. CT ABDOMEN/PELVIS Routine 12/06/2018 3:26 Results for this WITH/WITHOUT IV CONTRAST PM CDT procedure are in the results section. THROMBOELASTOGRAPH (TEG) STAT 12/06/2018 12:52 Results for this PM CDT procedure are in the results section. TYPE AND SCREEN, AUTOMATED STAT 12/06/2018 12:47 Results for this PM CDT procedure are in the results section. BLOOD CULTURE Routine 12/06/2018 12:24 PM CDT B-TYPE NATRIURETIC FACTOR STAT 12/06/2018 12:14 Results for this (BNP) PM CDT procedure are in the results section. PROCALCITONIN STAT 12/06/2018 12:14 Results for this PM CDT procedure are in the results section. HEMOGLOBIN AND HEMATOCRIT Routine 12/06/2018 12:14 Results for this PM CDT procedure are in the results section. AMYLASE STAT 12/06/2018 12:13 Results for this PM CDT procedure are in the results section. LIPASE STAT 12/06/2018 12:13 Results for this PM CDT procedure are in the results section. PHOSPHORUS STAT 12/06/2018 12:13 Results for this PM CDT procedure are in the results section. MAGNESIUM STAT 12/06/2018 12:13 Results for this PM CDT procedure are in the results section. COMPREHENSIVE METABOLIC STAT 12/06/2018 12:13 Results for this PANEL PM CDT procedure are in the results section. BLOOD CULTURE Routine 12/06/2018 12:13 PM CDT POCT-LACTIC ACID, VENOUS Routine 12/06/2018 12:08 Results for this PM CDT procedure are in the results section. CBC (HEMOGRAM ONLY) Routine 12/06/2018 4:55 Results for this AM CDT procedure are in the results section. BASIC METABOLIC PANEL (7) Routine 12/06/2018 4:55 Results for this AM CDT procedure are in the results section. MAGNESIUM Routine 12/05/2018 4:48 Results for this AM CDT procedure are in the results section. CBC (HEMOGRAM ONLY) Routine 12/05/2018 4:48 Results for this AM CDT procedure are in the results section. BASIC METABOLIC PANEL (7) Routine 12/05/2018 4:48 Results for this AM CDT procedure are in the results section. CBC (HEMOGRAM ONLY) Routine 12/04/2018 5:15 Results for this AM CDT procedure are in the results section. BASIC METABOLIC PANEL (7) Routine 12/04/2018 5:15 Results for this AM CDT procedure are in the results section. VANCOMYCIN LEVEL, TROUGH Timed 12/03/2018 10:31 Results for this PM CDT procedure are in the results section. T4, FREE Routine 12/03/2018 12:53 Results for this PM CDT procedure are in the results section. TSH/FREE T4 IF INDICATED Routine 12/03/2018 12:53 Results for this PM CDT procedure are in the results section. VITAMIN B12 AND FOLATE Routine 12/03/2018 12:53 Results for this PM CDT procedure are in the results section. IRON, TIBC, % SAT. Routine 12/03/2018 12:53 Results for this (WITHOUT FERRITIN) PM CDT procedure are in the results section. FERRITIN Routine 12/03/2018 12:53 Results for this PM CDT procedure are in the results section. PREALBUMIN Routine 12/03/2018 12:53 Results for this PM CDT procedure are in the results section. CBC (HEMOGRAM ONLY) Routine 12/03/2018 6:27 Results for this AM CDT procedure are in the results section. BASIC METABOLIC PANEL (7) Routine 12/03/2018 6:27 Results for this AM CDT procedure are in the results section. PERIPHERAL VASCULAR REPORT 12/02/2018 9:22 - SCAN PM CDT XR CHEST 1 VIEW Routine 12/02/2018 3:07 Results for this PORTABLE/BEDSIDE PM CDT procedure are in the results section. URINALYSIS W/ MICROSCOPIC Routine 12/02/2018 1:09 Results for this PM CDT procedure are in the results section. URINE CULTURE Routine 12/02/2018 1:09 Results for this PM CDT procedure are in the results section. WOUND CULTURE + GRAM STAIN Routine 12/02/2018 10:04 AM CDT VENOUS DOPPLER LEGS Routine 12/02/2018 9:18 Results for this BILATERAL AM CDT procedure are in the results section. BLOOD CULTURE Routine 12/02/2018 8:52 Results for this AM CDT procedure are in the results section. ECG 12-LEAD Routine 12/02/2018 8:12 Results for this AM CDT procedure are in the results section. T4, FREE Routine 12/02/2018 7:44 Results for this AM CDT procedure are in the results section. TSH/FREE T4 IF INDICATED Routine 12/02/2018 7:44 Results for this AM CDT procedure are in the results section. BLOOD CULTURE Routine 12/02/2018 7:44 Results for this AM CDT procedure are in the results section. CBC W/PLT COUNT & AUTO Routine 12/02/2018 7:43 Results for this DIFFERENTIAL AM CDT procedure are in the results section. LIPID PANEL Routine 12/02/2018 7:43 Results for this AM CDT procedure are in the results section. HEPATIC FUNCTION PANEL Routine 12/02/2018 7:43 Results for this AM CDT procedure are in the results section. PT/APTT Routine 12/02/2018 7:43 Results for this AM CDT procedure are in the results section. PHOSPHORUS Routine 12/02/2018 7:43 Results for this AM CDT procedure are in the results section. MAGNESIUM Routine 12/02/2018 7:43 Results for this AM CDT procedure are in the results section. CBC W/PLT COUNT & AUTO Routine 12/02/2018 7:43 Results for this DIFFERENTIAL AM CDT procedure are in the results section. BASIC METABOLIC PANEL (7) Routine 12/02/2018 7:43 Results for this AM CDT procedure are in the results section. INTRAOPERATIVE PATH REPORT 08/21/2018 10:02 - SCAN AM CDT after 12/06/2017 Results TRANSFUSION SERVICE REPORT - SCAN (12/07/2018 5:50 PM CDT) Narrative Performed At Hemoglobin and hematocrit (12/07/2018 1:38 PM CDT)Only the most recent of4 resultswithin the time period is included. Hemoglobin 7.6 (L) 13.7 - 17.5 GM/DL [facility] Hematocrit 23.6 (L) 40.1 - 51.0 % [facility] Specimen Blood Performing Organization Address City/State/Zipcode Phone Number [facility] [address] [place] [address] [phone] CENTER CBC (Hemogram only) (12/07/2018 4:39 AM CDT)Only the most recent of5 resultswithin the time period is included. WBC 13.1 (H) 3.5 - 10.5 K/L [facility] RBC 2.38 (L) 4.63 - 6.08 M/L [facility] Hemoglobin 7.3 (L) 13.7 - 17.5 GM/DL [facility] Hematocrit 22.8 (L) 40.1 - 51.0 % [facility] MCV 95.8 (H)Comment: Discordant 79.0 - 92.2 fL [facility] with previous result [facility] MCH 30.7 25.7 - 32.2 pg [facility] MCHC 32.0 (L) 32.3 - 36.5 GM/DL [facility] RDW 17.8 (H) 11.6 - 14.4 % [facility] Platelets 229 150 - 450 K/CU MM [facility] MPV 8.7 (L) 9.4 - 12.4 fL [facility] nRBC 0 0 - 0 /100 WBC [facility] Specimen Blood Performing Organization Address City/State/Zipcode Phone Number [address] [address] [place] Magnesium (12/07/2018 4:39 AM CDT)Only the most recent of4 resultswithin the time period is included. Magnesium 1.9 1.6 - 2.6 mg/dL [facility] Specimen Blood Performing Organization Address City/[facility]/Zipcode Phone Number [address] [address] CENTER Basic Metabolic Panel (12/07/2018 4:39 AM CDT)Only the most recent of6 resultswithin the time period is included. Sodium 134 (L) 136 - 145 meq/L [facility] Potassium 3.7 3.5 - 5.1 meq/L [facility] Chloride 104 98 - 107 meq/L [facility] CO2 26 22 - 29 meq/L [facility] BUN 36 (H) 7 - 21 mg/dL [facility] Creatinine 0.75 0.57 - 1.25 mg/dL [facility] Glucose 90 70 - 105 mg/dL [facility] Calcium 8.1 (L) 8.4 - 10.2 mg/dL [facility] EGFR 102Comment: ESTIMATED GFR IS mL/min/1.73 sq m [facility] NOT ACCURATE CREATININE [facility] CLEARANCE IN PREDICTING GLOMERULAR FILTRATION RATE. ESTIMATED GFR IS NOT APPLICABLE FOR DIALYSIS PATIENTS. Specimen Blood Performing Organization Address City/[facility] Phone Number [address] [address] [phone] CENTER Transfuse Leuko-Red RBC (12/07/2018 4:27 AM CDT)Only the most recent of4 resultswithin the time period is included.Prepare Leuko-Red RBC (12/07/2018 1: 39 AM CDT)Only the most recent of2 resultswithin the time period is included. CROSSMATCH COMPATIBLE SAFETRACE TX Unit ABO A Pos SAFETRACE TX UNIT NUMBER [id number] SAFETRACE [place] Status ISSUED SAFETRACE TX Blood Bank Product RED BLOOD CELLS SAFETRACE [place] PRODUCT CODE [id number] SAFETRACE [place] Specimen Other Performing Organization Address City/[facility] Phone Number [facility] [place] Lactic acid, venous (12/06/2018 9:46 PM CDT) Lactate, Venous 0.8 0.5 - 2.2 mmol/L [facility] Specimen Blood Performing Organization Address City/[facility]/Zipcode Phone Number [address] [address] CENTER XR chest 1 view portable / bedside (12/06/2018 9:09 PM CDT)Only the most recent of2 resultswithin the time period is included. Specimen Narrative Performed At FINAL REPORT GE RIS Chest one view. Clinical history: NG tube placement Comparison: Chest radiograph 12/02/18. Technique: A single frontal view of the chest was obtained. Findings: There is a feeding tube with tip in the fundus however the side hole is at the GE junction and requires advancement. The heart is normal in size. There are linearly oriented opacities in the left lower lobe which may represent subsegmental atelectasis and/or pneumonia. There is no pleural effusion or pneumothorax or pulmonary edema. The bony thorax is demineralized but otherwise. Signed: New Worrell MD Report Verified Date/Time:12/07/2018 00:25:08 Procedure Note Interface, External Ris In - 12/07/2018 12:27 AM CDT FINAL REPORT Chest one view. Clinical history: NG tube placement Comparison: Chest radiograph 12/02/18. Technique: A single frontal view of the chest was obtained. Findings: There is a feeding tube with tip in the fundus however the side hole is at the GE junction and requires advancement. The heart is normal in size. There are linearly oriented opacities in the left lower lobe which may represent subsegmental atelectasis and/or pneumonia. There is no pleural effusion or pneumothorax or pulmonary edema. The bony thorax is demineralized but otherwise. Signed: New Worrell MD Report Verified Date/Time: 12/07/2018 00:25:08 Performing Organization Address City/State/Zipcode Phone Number [facility] XR abdomen / KUB 1 view (12/06/2018 9:09 PM CDT) Specimen Narrative Performed At FINAL REPORT [facility] Abdomen one view Comparison: CT abdomen and pelvis 12/06/2017. Reason for exam:NG tube placement Findings: Supine view of the abdomen demonstrates a feeding tube with tip in the gastric fundus however the side hole is at the GE junction and therefore requires advancement. There are dilated air-filled small bowel loops in midabdomen, in keeping with small bowel obstruction noted on recent abdominal CT. There are surgical clips in the right upper quadrant. There is contrast in both renal collecting systems from the CT performed earlier on the same day. There are linearly oriented opacities in the left lower lobe which may represent discoid and subsegmental atelectasis. Signed: New Worrell MD Report Verified Date/Time:12/07/2018 00:04:19 Procedure Note Interface, External Ris In - 12/07/2018 12:06 AM CDT FINAL REPORT Abdomen one view Comparison: CT abdomen and pelvis 12/06/2017. Reason for exam: NG tube placement Findings: Supine view of the abdomen demonstrates a feeding tube with tip in the gastric fundus however the side hole is at the GE junction and therefore requires advancement. There are dilated air-filled small bowel loops in midabdomen, in keeping with small bowel obstruction noted on recent abdominal CT. There are surgical clips in the right upper quadrant. There is contrast in both renal collecting systems from the CT performed earlier on the same day. There are linearly oriented opacities in the left lower lobe which may represent discoid and subsegmental atelectasis. Signed: New Worrell MD Report Verified Date/Time: 12/07/2018 00:04:19 Performing Organization Address City/State/Zipcode Phone Number [facility] CT abdomen/pelvis without & with IV contrast (12/06/2018 3:26 PM CDT) Specimen Narrative Performed At FINAL REPORT [facility] CT scan of the abdomen and pelvis, CTA. HISTORY: GI bleeding. COMPARISON STUDY: None available. TECHNIQUE: Contiguous helical slices were acquired through the abdomen and pelvis both pre and post administration of intravenous contrast in a dynamic fashion. This exam was performed according to our department dose optimization program which includes automated exposure control, adjustment of the mA and/or kV according to the patient's size and/or use of iterative reconstruction technique. FINDINGS: Atelectasis or consolidation is seen in both lung bases The liver, spleen, pancreas and adrenal glands are unremarkable. There are multiple bilateral renal cysts including a 2.4 x 1.7 cm left-sided parapelvic renal cyst, multiple other parapelvic renal cysts bilaterally and a 1.6 x 2.4 cm right-sided renal cortical cyst. The gallbladder and biliary tree are unremarkable. There is extensive gastroesophageal reflux with fluid in a dilated distal esophagus. Multiple dilated small bowel loops are seen measuring up to 5 cm. The patient is status post right colectomy with clips identified. On the right side, slightly inferior to the anastomosis a 4.6 x 3.7 cm low-attenuation masslike area seen. It is difficult to separate from bowel as before filled with fluid. Also seen in the right lower quadrant is a 7.2 x 3.4 cm gas and fluid collection extending to the skin surface and involving the sigmoid colon. Focal perforation is suspected. Diverticulosis is noted. A small amount of free fluid is seen. The colon is decompressed. The aorta is normal in caliber. No definite sites of active contrast extravasation are seen on the arterial phase. No pooling of blood is seen in the venous phase. Bone windows demonstrate degenerative changes. IMPRESSION: 1. Bibasilar atelectasis or consolidation. 2. Reflux of fluid into a dilated distal esophagus. 3. Extraluminal mass or fluid on the right. 4. Multiple fluid-filled dilated loops of small bowel. The colon is decompressed. This is consistent with a distal small bowel obstruction. The transition point appears to be in the right lower quadrant mass or fluid like area. 5. Postsurgical changes in the right colon with likely enterocolic anastomosis. Clinical correlation is suggested. 6. Perforation of the sigmoid colon with adjacent extraluminal fluid and gas fistulized into the skin surface. 7. No definite sites of active bleeding identified. 8. Bibasilar atelectasis or consolidation 9. Bibasilar atelectasis or consolidation. Trace effusions are seen. A verbal report was given to Grupo, the patient's nurse practioner, He was instructed to inform the physician. Signed: Montrell Cintron MD Report Verified Date/Time:12/06/2018 17:01:39 Reading Location: [facility] [id number] Consult Reading Room Procedure Note Interface, External Ris In - 12/06/2018 5:03 PM CDT FINAL REPORT CT scan of the abdomen and pelvis, CTA. HISTORY: GI bleeding. COMPARISON STUDY: None available. TECHNIQUE: Contiguous helical slices were acquired through the abdomen and pelvis both pre and post administration of intravenous contrast in a dynamic fashion. This exam was performed according to our department dose optimization program which includes automated exposure control, adjustment of the mA and/or kV according to the patient's size and/or use of iterative reconstruction technique. FINDINGS: Atelectasis or consolidation is seen in both lung bases The liver, spleen, pancreas and adrenal glands are unremarkable. There are multiple bilateral renal cysts including a 2.4 x 1.7 cm left-sided parapelvic renal cyst, multiple other parapelvic renal cysts bilaterally and a 1.6 x 2.4 cm right-sided renal cortical cyst. The gallbladder and biliary tree are unremarkable. There is extensive gastroesophageal reflux with fluid in a dilated distal esophagus. Multiple dilated small bowel loops are seen measuring up to 5 cm. The patient is status post right colectomy with clips identified. On the right side, slightly inferior to the anastomosis a 4.6 x 3.7 cm low-attenuation masslike area seen. It is difficult to separate from bowel as before filled with fluid. Also seen in the right lower quadrant is a 7.2 x 3.4 cm gas and fluid collection extending to the skin surface and involving the sigmoid colon. Focal perforation is suspected. Diverticulosis is noted. A small amount of free fluid is seen. The colon is decompressed. The aorta is normal in caliber. No definite sites of active contrast extravasation are seen on the arterial phase. No pooling of blood is seen in the venous phase. Bone windows demonstrate degenerative changes. IMPRESSION: 1. Bibasilar atelectasis or consolidation. 2. Reflux of fluid into a dilated distal esophagus. 3. Extraluminal mass or fluid on the right. 4. Multiple fluid-filled dilated loops of small bowel. The colon is decompressed. This is consistent with a distal small bowel obstruction. The transition point appears to be in the right lower quadrant mass or fluid like area. 5. Postsurgical changes in the right colon with likely enterocolic anastomosis. Clinical correlation is suggested. 6. Perforation of the sigmoid colon with adjacent extraluminal fluid and gas fistulized into the skin surface. 7. No definite sites of active bleeding identified. 8. Bibasilar atelectasis or consolidation 9. Bibasilar atelectasis or consolidation. Trace effusions are seen. A verbal report was given to Grupo, the patient's nurse practioner, He was instructed to inform the physician. Signed: Montrell Cintron MD Report Verified Date/Time: 12/06/2018 17:01:39 Reading Location: [facility] [id number] Consult Reading Room Performing Organization Address [facility] Phone Number [facility] Thromboelastograph (TEG) (12/06/2018 12:52 PM CDT) TEG Activated Clotting Time 3.9 (L) 4.0 - 7.0 minutes [facility] TEG Fibrinogen Activity 77.6 (H) 61.0 - 73.0 degrees [facility] TEG Platelet Aggregation 63.9 55.0 - 65.0 MM [facility] TEG Fibrinolysis 1.6 0.0 - 5.0 % [facility] TEG-H Activated Clotting Time 4.2 4.0 - 7.0 minutes [facility] TEG-H Fibrinogen Activity 76.2 (H) 61.0 - 73.0 degrees [facility] TEG-H Platelet Aggregation 54.5 (L) 55.0 - 65.0 MM [facility] TEG-H Fibrinolysis 2.2 0.0 - 5.0 % [facility] Specimen Blood Performing Organization Address [facility] [place] Phone Number [address] [address] CENTER Type and screen, automated (12/06/2018 12:47 PM CDT) ABO/RH AUTOMATED (BEAKER) AB [facility] Ab Scrn [facility] Specimen Blood Performing Organization Address [facility] Phone Number [address] [address] Procalcitonin (12/06/2018 12:14 PM CDT) Procalcitonin 1.37 (H) <0.05 ng/mL [facility] Specimen Blood Narrative Performed At SEPSIS RISK (ng/mL) [facility] Low:0.05-0.50 Intermediate: 0.51-2.00 High: >=2.01 Performing Organization Address [facility] Phone Number [address] [address] CENTER B-type Natriuretic Factor (BNP) (12/06/2018 12:14 PM CDT) BNP 24 0 - 100 pg/mL [facility] Specimen Blood Performing Organization Address [facility] Phone Number [address] [address] CENTER Phosphorus (12/06/2018 12:13 PM CDT)Only the most recent of2 resultswithin the time period is included. Phosphorus 3.2 2.3 - 4.7 mg/dL [facility] Specimen Blood Performing Organization Address [facility] Phone Number [address] [address] CENTER Lipase (12/06/2018 12:13 PM CDT) Lipase 10 8 - 78 U/L [facility] Specimen Blood Performing Organization Address [facility] Phone Number [address] [address] CENTER Amylase (12/06/2018 12:13 PM CDT) Amylase 28 25 - 125 U/L [facility] Specimen Blood Performing Organization Address [facility] Phone Number [address] [address] [phone] CENTER Comprehensive metabolic panel (12/06/2018 12:13 PM CDT) Protein, Total 5.0 (L) 6.0 - 8.3 gm/dL [facility] Albumin 2.6 (L) 3.5 - 5.0 g/dL [facility] Alkaline Phosphatase 74 40 - 150 U/L [facility] Total Bilirubin 0.3 0.2 - 1.2 mg/dL [facility] Sodium 134 (L) 136 - 145 meq/L [facility] Potassium 3.9 3.5 - 5.1 meq/L [facility] Chloride 99 98 - 107 meq/L [facility] CO2 28 22 - 29 meq/L [facility] BUN 46 (H) 7 - 21 mg/dL [facility] Creatinine 1.09 0.57 - 1.25 mg/dL [facility] Glucose 129 (H) 70 - 105 mg/dL [facility] Calcium 8.8 8.4 - 10.2 mg/dL [facility] AST 21 5 - 34 U/L [facility] ALT 18 6 - 55 U/L [facility] EGFR 66Comment: ESTIMATED GFR mL/min/1.[address] [facility] IS NOT ACCURATE [facility] CREATININE CLEARANCE IN PREDICTING GLOMERULAR FILTRATION RATE. ESTIMATED GFR IS NOT APPLICABLE FOR DIALYSIS PATIENTS. Specimen Blood Performing Organization Address City/[facility]/Zipcode Phone Number [address] [address] CENTER POC-Lactic Acid, Venous (12/06/2018 12:08 PM CDT) POC-Lactic Acid, Venous 1.4Comment: TESTED AT 0.9 - 1.7 mmol/L [address] [address] Specimen Blood Performing Organization Address City/State/Zipcode Phone Number [address] [address] CENTER Vancomycin level, trough (12/03/2018 10:31 PM CDT) Vancomycin Tr 14.9 10.0 - 20.0 ug/mL [facility] Specimen Blood Narrative Performed At Draw immediately prior to next vancomycin [facility] dose. Performing Organization Address [facility] Phone Number [address] [address] [phone] CENTER Vitamin B12 and Folate (12/03/2018 12:53 PM CDT) Vitamin B12 1,000 (H) 213 - 816 pg/mL [facility] Folate 18.4 >=7.0 ng/mL [facility] Specimen Blood Performing Organization Address [facility] Phone Number [address] [address] [phone] CENTER TSH/Free T4 If Indicated (12/03/2018 12:53 PM CDT)Only the most recent of2 resultswithin the time period is included. TSH 20.21 (H) 0.35 - 4.94 uIU/mL [facility] Specimen Blood Performing Organization Address [facility] Phone Number [address] [address] CENTER Iron, TIBC, % sat. (without ferritin) (12/03/2018 12:53 PM CDT) Iron 25.0 (L) 40.0 - 160.0 ug/dL [facility] TIBC 144 (L) 250 - 450 ug/dL [facility] Iron % Saturation 17 (L) 20 - 55 % [facility] Specimen Blood Performing Organization Address [facility] Phone Number [address] [phone] [place] T4, free (12/03/2018 12:53 PM CDT)Only the most recent of2 resultswithin the time period is included. Free T4 1.11 0.70 - 1.48 ng/dL [facility] Specimen Blood Performing Organization Address [facility]/Zipcode Phone Number [address] [address] [place] Prealbumin (12/03/2018 12:53 PM CDT) Prealbumin 11 (L) 14 - 45 mg/dL [facility] Specimen Blood Performing Organization Address [facility] Phone Number [address] [address] [place] Ferritin (12/03/2018 12:53 PM CDT) Ferritin 2,873 (H) 5 - 275 ng/mL [facility] Specimen Blood Performing Organization Address [facility] Phone Number [address] [address] [phone] [place] PERIPHERAL VASCULAR REPORT - SCAN (12/02/2018 9:22 PM CDT) Narrative Performed At Urinalysis w/Microscopic (12/02/2018 1:09 PM CDT) Color, UA Yellow [facility] Clarity, UA Clear [facility] Specific Strawn, UA 1.019 1.001 - 1.035 [facility] pH, UA 5.5 5.0 - 8.0 [facility] Protein, UA Negative Negative [facility] Glucose, UA Negative Negative [facility] Ketones, UA Negative Negative [facility] Bilirubin, UA Negative Negative [facility] Blood, UA Trace (A) Negative [facility] Nitrite, UA Negative Negative [facility] Leukocytes, UA Negative Negative [facility] Urobilinogen, UA 0.2 0.2 - 1.0 mg/dL [facility] RBC, UA <1 /HPF [facility] WBC, UA 1 /HPF [facility] Mucus Rare [facility] Specimen Source [facility] Specimen Urine Performing Organization Address City/State/Zipcode Phone Number [facility] [address] [place] [phone] [place] Urine culture (12/02/2018 1:09 PM CDT) Result <10,000 col/mL skin carlie [facility] Gram Stain Result No WBCs [facility] Gram Stain Result No organisms seen [facility] Specimen Urine Performing Organization Address City/State/Zipcode Phone Number [facility] [address] [place] [address] [phone] [place] Venous doppler legs bilateral (12/02/2018 9:18 AM CDT) Ejection Fraction [facility] Specimen Impressions Performed At Right Impression [facility] 1. There is no deep venous obstruction in the common femoral, profunda femoral, femoral, popliteal, posterior tibial or peroneal veins. 2. There is no superficial venous obstruction in the great saphenous vein. Left Impression 1. There is no deep venous obstruction in the common femoral, profunda femoral, femoral, popliteal, posterior tibial or peroneal veins. 2. There is no superficial venous obstruction in the great saphenous vein. Conclusions Summary Venous duplex imaging and compression of the bilateral lower extremities were performed. The veins were adequately visualized. The bilateral venous systems were patent and compressible with no evidence of thrombus. The venous Doppler waveforms were phasic with respiration. Signature Velocities are measured in cm/s ; Diameters are measured in cm Narrative Performed At PV LAB - Lower Extremities DVT Study [facility] Demographics Patient NameLETTY RECINOS Date of Study 12/02/2018 73 Visit [id number] Male of 1945 Referring Jacinta Chairez, Room Number 1514 Physician Independent Crop Consultant Hannah [facility] Physician Procedure Type of Study: Veins: Lower Extremities DVT Study, VENOUS DOPPLER LEG, BILATERAL. Indications for Study:Evaluate for DVT. Patient Status:Routine. Study Location:Vascular Lab. Technical Quality:Adequate visualization. Risk Factors History of Disease + +--- -+ + !Diagnosis !Date!Comments ! + +--- -+ + !History/Risk Factors: !!colon cancer ! + +--- -+ + Procedure Note Interface, External Ris In - 12/02/2018 11:09 AM CDT [facility] - Lower Extremities DVT Study Demographics Patient Name LETTY RECINOS Date of Study 12/02/2018 Age 73 Visit Number [id number] Gender Male Accession Number [id number] Date of 1945 Referring Jacinta Chairez, Room Number 1514 Physician Independent Crop Consultant Hannah Hare Interpreting Lily Cruz, T Physician Procedure Type of Study: Veins: Lower Extremities DVT Study, VENOUS DOPPLER LEG, BILATERAL. Indications for Study:Evaluate for DVT. Patient Status:Routine. Study Location:Vascular Lab. Technical Quality:Adequate visualization. Risk Factors History of Disease + +----+ + !Diagnosis !Date!Comments ! + +----+ + !History/Risk Factors: ! !colon cancer ! + +----+ + Impressions Right Impression 1. There is no deep venous obstruction in the common femoral, profunda femoral, femoral, popliteal, posterior tibial or peroneal veins. 2. There is no superficial venous obstruction in the great saphenous vein. Left Impression 1. There is no deep venous obstruction in the common femoral, profunda femoral, femoral, popliteal, posterior tibial or peroneal veins. 2. There is no superficial venous obstruction in the great saphenous vein. Conclusions Summary Venous duplex imaging and compression of the bilateral lower extremities were performed. The veins were adequately visualized. The bilateral venous systems were patent and compressible with no evidence of thrombus. The venous Doppler waveforms were phasic with respiration. Signature Velocities are measured in cm/s ; Diameters are measured in cm Performing Organization Address City/State/Zipcode Phone Number [facility] Blood culture (12/02/2018 8:52 AM CDT)Only the most recent of2 resultswithin the time period is included. Result No growth in 5 days [facility] Specimen Blood Performing Organization Address City/[facility]/Zipcode Phone Number [facility] [address] [place] [address] [place] ECG 12 lead (12/02/2018 8:12 AM CDT) Specimen Narrative Performed At Ventricular Rate 68 BPM GE MUSE Atrial Rate 68 BPM P-R Interval 174 ms QRS Duration 82 ms Q-T Interval 410 ms QTC Calculation(Bazett) 435 ms P [place] 67 degrees R [place] 46 degrees T [place] 69 degrees Normal sinus rhythm Normal ECG No previous ECGs available Confirmed by MD Gunn Roberto ([id number]) on 12/03/2018 10:36:16 AM Procedure Note Interface, External Ris In - 12/03/2018 10:36 AM CDT Ventricular Rate 68 BPM Atrial Rate 68 BPM P-R Interval 174 ms QRS Duration 82 ms Q-T Interval 410 ms QTC Calculation(Bazett) 435 ms P [place] 67 degrees R [place] 46 degrees T [place] 69 degrees Normal sinus rhythm Normal ECG No previous ECGs available Confirmed by MD Gunn Roberto ([id number]) on 12/03/2018 10:36:16 AM Performing Organization Address [facility] Phone Number DILCIA SANDERS PT/aPTT (12/02/2018 7:43 AM CDT) Protime 16.0 (H) 11.9 - 14.2 seconds [facility] INR 1.3 <=5.9 [facility] PTT 41.6 (H) 22.5 - 36.0 seconds [facility] Specimen Blood Narrative Performed At Effective 10/07/2018: PT Reference Range [facility] Change New: 11.9-14.2Previous: 11.7-14.7 RECOMMENDED COUMADIN/WARFARIN INR THERAPY RANGES STANDARD DOSE: 2.0-3.0Includes: PROPHYLAXIS for venous thrombosis, systemic embolization; TREATMENT for venous thrombosis and/or pulmonary embolus. HIGH RISK: Target INR is 2.5-3.5 for patients wiht mechanical heart valves. Performing Organization Address [facility] Phone Number [address] [address] CENTER CBC with platelet count + automated diff (12/02/2018 7:43 AM CDT) WBC 6.6 3.5 - 10.5 K/L [facility] RBC 2.49 (L) 4.63 - 6.08 M/L [facility] Hemoglobin 7.8 (L) 13.7 - 17.5 GM/DL [facility] Hematocrit 24.8 (L) 40.1 - 51.0 % [facility] MCV 99.6 (H) 79.0 - 92.2 fL [facility] MCH 31.3 25.7 - 32.2 pg [facility] MCHC 31.5 (L) 32.3 - 36.5 GM/DL [facility] RDW 14.7 (H) 11.6 - 14.4 % [facility] Platelets 265 150 - 450 K/CU MM [facility] MPV 8.5 (L) 9.4 - 12.4 fL [facility] nRBC 0 0 - 0 /100 WBC [facility] % Neutros 85 % [facility] % Lymphs 6 % [facility] % Monos 5 % [facility] % Eos 2 % [facility] % Baso 0 % [facility] # Neutros 5.66 (H) 1.78 - 5.38 K/L [facility] # Lymphs 0.38 (L) 1.32 - 3.57 K/L [facility] # Monos 0.35 0.30 - 0.82 K/L [facility] # Eos 0.14 0.04 - 0.54 K/L [facility] # Baso 0.01 0.01 - 0.08 K/L [facility] Immature Granulocytes-Relative 1 0 - 1 % [facility] Specimen Blood Performing Organization Address City/State/Zipcode Phone Number [facility] [address] [place] [address] [phone] CENTER Hepatic function panel (12/02/2018 7:43 AM CDT) Protein, Total 5.7 (L) 6.0 - 8.3 gm/dL [facility] Albumin 2.8 (L) 3.5 - 5.0 g/dL [facility] Total Bilirubin 0.2 0.2 - 1.2 mg/dL [facility] Bilirubin, Direct 0.1 0.1 - 0.5 mg/dL [facility] Alkaline Phosphatase 82 40 - 150 U/L [facility] AST 20 5 - 34 U/L [facility] ALT 17 6 - 55 U/L [facility] Specimen Blood Performing Organization Address [facility] Phone Number [facility] [address] [place] [address] [place] Lipid panel (12/02/2018 7:43 AM CDT) Triglycerides 87 mg/dL [facility] Cholesterol 122 mg/dL [facility] HDL 33 mg/dL [facility] LDL Calculated 72 mg/dL [facility] Specimen Blood Narrative Performed At Triglyceride Reference Range: [facility] Low Risk <150 [id number] High Risk 200-499 Very High Risk>=500 Cholesterol Reference Range: Low Risk <200 [id number] High Risk>240 HDL Cholesterol Reference Range: Low Risk >=60 High Risk <40 LDL Cholesterol Reference Range: Optimal<100 Near [id number] Very High >=190 Performing Organization Address [facility] Phone Number [facility] [address] [place] [address] [phone] [place] INTRAOPERATIVE PATH REPORT - SCAN (08/21/2018 10:02 AM CDT) Narrative Performed At after 12/06/2017 Insurance Payer Benefit Plan / Group Subscriber ID Type Phone Address MEDICARE MEDICARE A B xxxxxxxxxx Medicare AETNA - MGD CARE AETNA INDEMNITY NON CONTR xxxxxxxxx Comm Advance Directives Patient has advance care planning documents, and code status on file. For more information, please contact:[place] [address] [address] [place], [place] [phone] Code Status Date Activated Date Inactivated Comments Partial Code 12/07/2018 11:13 AM This code status was determined by: Patient Drug Protocol After Arrest Occurs? No Mechanical Ventilation with Intubation? No Bag/Mask? No Internal/External Pacemaker? No Transfer to Critical Care? No Chest Compressions? No Defibrillation/Cardioversion? No Full Code 12/06/2018 7:32 PM 12/07/2018 11:13 AM This code status was determined by: Patient Full Code 11/14/2017 2:10 PM 11/17/2017 5:49 PM This code status was determined by: Patient
--- OUTSIDE RECORDS SUMMARY | 2018-12-07 20:53 | XMS REPORT ---
:1945 [facility] Address [address] [place] [address] Dr. V[address]as [address] [place] [id number] Care Team Providers Name Role Phone PEACE JAUREGUI V. Unavailable Unavailable SHRUTHI GREENE Unavailable Unavailable Problems This patient has no known problems. Allergies, Adverse Reactions, Alerts This patient has no known allergies or adverse reactions. Medications This patient has no known medications. Results Test Description Test Time Test Comments Text Results Atomic Results Result Comments HEMOGLOBIN AND HEMATOCRIT 2018-12-07 13:44:00 Test Item Value Reference Range Comments HEMOGLOBIN (BEAKER) (test ksui=541) 7.6 GM/DL 13.7-17.5 HEMATOCRIT (BEAKER) (test znmg=282) 23.6 % 40.1-51.0 BLOOD [id number] 12:01:00 Test Item Value Reference Range Comments CULTURE (BEAKER) (test vcob=4793) No growth in 5 days BLOOD [id number] 12:01:00 Test Item Value Reference Range Comments CULTURE (BEAKER) (test bnrw=5891) No growth in 5 days [id number] 05:13:00 Test Item Value Reference Range Comments MAGNESIUM (BEAKER) (test qmpa=747) 1.9 mg/dL 1.6-2.6 BASIC METABOLIC [id number] 05:13:00 Test Item Value Reference Range Comments SODIUM (BEAKER) (test 134 meq/L 136-145 xuma=638) POTASSIUM (BEAKER) (test 3.7 meq/L 3.5-5.1 zsbb=377) CHLORIDE (BEAKER) (test 104 meq/L 98-107 bkgt=764) CO2 (BEAKER) (test 26 meq/L 22-29 nknx=554) BLOOD UREA NITROGEN 36 mg/dL 7-21 (BEAKER) (test gfqa=067) CREATININE (BEAKER) (test 0.75 mg/dL 0.57-1.25 nwhw=261) GLUCOSE RANDOM (BEAKER) 90 mg/dL 70-105 (test wlwj=921) CALCIUM (BEAKER) (test 8.1 mg/dL 8.4-10.2 opwm=844) EGFR (BEAKER) (test 102 mL/min/1.73 sq m ESTIMATED GFR IS NOT gaeo=5935) ACCURATE CREATININE CLEARANCE IN PREDICTING GLOMERULAR FILTRATION RATE. ESTIMATED GFR IS NOT APPLICABLE FOR DIALYSIS PATIENTS. CBC (HEMOGRAM ONLY)2018-12-07 04:58:00 Test Item Value Reference Range Comments WHITE BLOOD CELL COUNT 13.1 K/ L 3.5-10.5 (BEAKER) (test mtfv=925) RED BLOOD CELL COUNT (BEAKER) 2.38 M/ L 4.63-6.08 (test ercz=727) HEMOGLOBIN (BEAKER) (test 7.3 GM/DL 13.7-17.5 scaa=551) HEMATOCRIT (BEAKER) (test 22.8 % 40.1-51.0 tnqy=863) MEAN CORPUSCULAR VOLUME 95.8 fL 79.0-92.2 Discordant with previous (BEAKER) (test tbpj=029) result MEAN CORPUSCULAR HEMOGLOBIN 30.7 pg 25.7-32.2 (BEAKER) (test wflg=770) MEAN CORPUSCULAR HEMOGLOBIN 32.0 GM/DL 32.3-36.5 CONC (BEAKER) (test zrhi=632) RED CELL DISTRIBUTION WIDTH 17.8 % 11.6-14.4 (BEAKER) (test cqgi=784) PLATELET COUNT (BEAKER) (test 229 K/CU MM 150-450 ttqj=312) MEAN PLATELET VOLUME (BEAKER) 8.7 fL 9.4-12.4 (test lpxe=496) NUCLEATED RED BLOOD CELLS 0 /100 WBC 0-0 (BEAKER) (test jwgq=713) HEMOGLOBIN AND [id number] 01:15:00 Test Item Value Reference Range Comments HEMOGLOBIN (BEAKER) (test wabe=994) 6.5 GM/DL 13.7-17.5 HEMATOCRIT (BEAKER) (test ojkz=657) 20.5 % 40.1-51.0 RAD, CHEST, 1 VIEW, NON [id number] 00:25:00Reason for exam:->NG tube placementShould this be performed at the bedside?->YesFINAL REPORT Chest one view. Clinical history: NG tube placement Comparison: Chest radiograph 12/02/18. Technique: A single frontal view of the chest was obtained. Findings:There is a feeding tube with tip in the fundus however the side hole is at the GE junction and requires advancement.The heart is normal in size. There are linearly oriented opacities in the left lower lobe which may represent subsegmental atelectasis and/or pneumonia. There is no pleural effusion or pneumothorax or pulmonary edema. The bony thorax is demineralized but otherwise. Signed: New Worrell Verified Date/Time: 2018 00:25:08 Electronically signed by: NEW WORRELL MD on 2018 12:25 AMRAD, ABDOMEN/KUB, 1 VIEW [id number] 00:04:00Reason for exam:-> NG tube placementShould this be performed at the bedside?->YesFINAL REPORT Abdomen one view Comparison: CT abdomen and pelvis 2017. Reason for exam: NG tube placement Findings: [...] clips in the right upper quadrant. There iscontrast in both renal collecting systems from the CT performed earlier on the same day. There are linearly oriented opacities in the left lower lobe which may represent discoid and subsegmental atelectasis. Signed : New Worrellort Verified Date/Time: 12/07/2018 00:04:19 LACTIC ACID, [id number] 22:14:00 Test Item Value Reference Range Comments LACTATE BLOOD VENOUS (2) (BEAKER) (test 0.8 mmol/L 0.5-2.2 gofi=6115) HEMOGLOBIN AND [id number] 22:01:00 Test Item Value Reference Range Comments HEMOGLOBIN (MAY) (test qmwv=657) 6.9 GM/DL 13.7-17.5 HEMATOCRIT (MAY) (test njpm=189) 21.9 % 40.1-51.0 CT, [id number] 17:01:00No sedationFINAL REPORT CT scan of the abdomen and pelvis, CTA. HISTORY: GI bleeding. COMPARISON STUDY: None available. TECHNIQUE: Contiguous helical slices were acquired through the abdomen and pelvis both pre and post administration of intravenous contrast in a dynamic fashion. This examwas performed according to our department dose optimization [...] renal cyst, multiple other parapelvic renal cysts bilaterallyand a 1.6 x 2.4 cm right-sided renal [...] bowel as before filled with fluid. Also seenin the right lower quadrant is a 7.2 x 3.4 cm gas and fluid collection extending to the skin surfaceand involving the sigmoid colon. Focal perforation is suspected. Diverticulosis is noted. A small amount of free fluid is seen. The colon is decompressed. The aorta is normal in caliber. No definite sites of active contrast extravasation are seen on the arterial phase. No pooling of blood is seen in the venous phase. Bone windows demonstrate degenerative changes. IMPRESSION:1. Bibasilar atelectasis or consolidation.2. Reflux of fluid into a dilated distal esophagus.3. Extraluminal mass or fluid on the right.4. Multiple fluid-filled dilated loops of small bowel. The colon is decompressed. This is consistent with a distal small bowel obstruction. The transition point appears to be in the right lowerquadrant mass or fluid like area.5. Postsurgical changes in the right colon with likely enterocolic anastomosis. Clinical correlation is suggested.6. Perforation of the sigmoid colon with adjacent extraluminal fluid and gas fistulized into the skin surface.7. No definite sites of active bleeding identified.8. Bibasilar atelectasis or consolidation9. Bibasilar atelectasis or consolidation. Trace effusions are seen. A verbal report was given to Grupo, the patient's nurse practioner, He was instructed to inform the physician. Signed: Montrell Cintron MDReport Verified Date/Time: 12/06/2018 17:01:39 Reading Location: [address] Consult Reading Room THROMBOELASTOGRAPH (TEG)2018-12-06 14:34:00 Test Item Value Reference Range Comments TEG ACTIVATED CLOTTING TIME (BEAKER) (test 3.9 minutes 4.0-7.0 rsnk=0805) TEG FIBRINOGEN ACTIVITY (BEAKER) (test 77.6 degrees 61.0-73.0 twzh=3610) TEG PLT. AGGREGATION (BEAKER) (test bucl=9987) 63.9 MM 55.0-65.0 TEG FIBRINOLYSIS (BEAKER) (test ynmo=5757) 1.6 % 0.0-5.0 TGH ACTIVATED CLOTTING TIME (BEAKER) (test 4.2 minutes 4.0-7.0 myeg=4557) TGH FIBRINOGEN ACTIVITY (BEAKER) (test 76.2 degrees 61.0-73.0 gcgy=8993) TGH PLT. AGGREGATION (BEAKER) (test axdv=6788) 54.5 MM 55.0-65.0 TGH FIBRINOLYSIS (BEAKER) (test syyi=4726) 2.2 % 0.0-5.0 [id number] 13:24:00 Test Item Value Reference Range Comments PROCALCITONIN (BEAKER) (test cxlz=7978) 1.37 ng/mL <0.05 SEPSIS RISK (ng/mL)Low: 0.05-0.50Intermediate: 0.51-2.00High: & gt;=2.01B-TYPE NATRIURETIC FACTOR (BNP)2018-12-06 12:58:00 Test Item Value Reference Range Comments B-TYPE NATRIURETIC PEPTIDE (BEAKER) (test xszh=534) 24 pg/mL 0-100 [id number] 12:51:00 Test Item Value Reference Range Comments PHOSPHORUS (BEAKER) (test ikxa=230) 3.2 mg/dL 2.3-4.7 [id number] 12:51:00 Test Item Value Reference Range Comments MAGNESIUM (BEAKER) (test facs=585) 1.7 mg/dL 1.6-2.6 COMPREHENSIVE METABOLIC [id number] 12:51:00 Test Item Value Reference Range Comments TOTAL PROTEIN (BEAKER) 5.0 gm/dL 6.0-8.3 (test tldb=002) ALBUMIN (BEAKER) (test 2.6 g/dL 3.5-5.0 lpeo=3699) ALKALINE PHOSPHATASE 74 U/L 40-150 (BEAKER) (test kkfa=939) BILIRUBIN TOTAL (BEAKER) 0.3 mg/dL 0.2-1.2 (test ytto=947) SODIUM (BEAKER) (test 134 meq/L 136-145 ieoi=977) POTASSIUM (BEAKER) (test 3.9 meq/L 3.5-5.1 mcaz=639) CHLORIDE (BEAKER) (test 99 meq/L 98-107 esjn=447) CO2 (BEAKER) (test 28 meq/L 22-29 razw=774) BLOOD UREA NITROGEN 46 mg/dL 7-21 (BEAKER) (test jlsf=238) CREATININE (BEAKER) (test 1.09 mg/dL 0.57-1.25 rkuh=654) GLUCOSE RANDOM (BEAKER) 129 mg/dL 70-105 (test gjqf=190) CALCIUM (BEAKER) (test 8.8 mg/dL 8.4-10.2 doot=920) AST (SGOT) (BEAKER) (test 21 U/L 5-34 cnbl=295) ALT (SGPT) (BEAKER) (test 18 U/L 6-55 lohi=102) EGFR (BEAKER) (test 66 mL/min/1.73 sq m ESTIMATED GFR IS NOT xzba=1504) ACCURATE CREATININE CLEARANCE IN PREDICTING GLOMERULAR FILTRATION RATE. ESTIMATED GFR IS NOT APPLICABLE FOR DIALYSIS PATIENTS. [id number] 12:51:00 Test Item Value Reference Range Comments AMYLASE (BEAKER) (test vkpv=587) 28 U/L 25-125 [id number] 12:51:00 Test Item Value Reference Range Comments LIPASE (BEAKER) (test chkh=574) 10 U/L 8-78 HEMOGLOBIN AND [id number] 12:32:00 Test Item Value Reference Range Comments HEMOGLOBIN (BEAKER) (test oeyf=723) 6.5 GM/DL 13.7-17.5 HEMATOCRIT (BEAKER) (test gqds=226) 21.0 % 40.1-51.0 POCT-LACTIC ACID, [id number] 12:27:00 Test Item Value Reference Range Comments POC-LACTIC ACID, VENOUS 1.4 mmol/L 0.9-1.7 [facility] [address] [facility] (BEAKER) (test vmup=4066) [facility] [address] BASIC METABOLIC [id number] 07:34:00 Test Item Value Reference Range Comments SODIUM (BEAKER) (test 131 meq/L 136-145 zasw=857) POTASSIUM (BEAKER) (test 3.9 meq/L 3.5-5.1 eymq=763) CHLORIDE (BEAKER) (test 99 meq/L 98-107 zvle=671) CO2 (BEAKER) (test 24 meq/L 22-29 qnfb=498) BLOOD UREA NITROGEN 35 mg/dL 7-21 (BEAKER) (test flat=742) CREATININE (BEAKER) (test 0.83 mg/dL 0.57-1.25 ajui=815) GLUCOSE RANDOM (BEAKER) 117 mg/dL 70-105 (test ryom=579) CALCIUM (BEAKER) (test 8.9 mg/dL 8.4-10.2 cubg=863) EGFR (BEAKER) (test 90 mL/min/1.73 sq m ESTIMATED GFR IS NOT nqjs=7410) ACCURATE CREATININE CLEARANCE IN PREDICTING GLOMERULAR FILTRATION RATE. ESTIMATED GFR IS NOT APPLICABLE FOR DIALYSIS PATIENTS. CBC (HEMOGRAM ONLY)2018-12-06 05:35:00 Test Item Value Reference Range Comments WHITE BLOOD CELL COUNT (BEAKER) (test wydx=565) 25.1 K/ L 3.5-10.5 RED BLOOD CELL COUNT (BEAKER) (test jnyw=576) 2.38 M/ L 4.63-6.08 HEMOGLOBIN (BEAKER) (test cbkb=511) 7.6 GM/DL 13.7-17.5 HEMATOCRIT (BEAKER) (test mjit=535) 24.1 % 40.1-51.0 MEAN CORPUSCULAR VOLUME (BEAKER) (test khmk=824) 101.3 fL 79.0-92.2 MEAN CORPUSCULAR HEMOGLOBIN (BEAKER) (test 31.9 pg 25.7-32.2 noxu=964) MEAN CORPUSCULAR HEMOGLOBIN CONC (BEAKER) (test 31.5 GM/DL 32.3-36.5 kfyd=234) RED CELL DISTRIBUTION WIDTH (BEAKER) (test 15.3 % 11.6-14.4 zsea=770) PLATELET COUNT (BEAKER) (test jtpz=597) 350 K/CU MM 150-450 MEAN PLATELET VOLUME (BEAKER) (test pyby=509) 9.1 fL 9.4-12.4 NUCLEATED RED BLOOD CELLS (BEAKER) (test 0 /100 WBC 0-0 afky=416) [id number] 06:02:00 Test Item Value Reference Range Comments MAGNESIUM (BEAKER) (test leom=187) 1.5 mg/dL 1.6-2.6 BASIC METABOLIC [id number] 06:02:00 Test Item Value Reference Range Comments SODIUM (BEAKER) (test 137 meq/L 136-145 yiqv=964) POTASSIUM (BEAKER) (test 3.7 meq/L 3.5-5.1 hbrt=760) CHLORIDE (BEAKER) (test 102 meq/L 98-107 nxwd=268) CO2 (BEAKER) (test 27 meq/L 22-29 cxaa=152) BLOOD UREA NITROGEN 14 mg/dL 7-21 (BEAKER) (test biyx=942) CREATININE (BEAKER) (test 0.73 mg/dL 0.57-1.25 dxto=836) GLUCOSE RANDOM (BEAKER) 106 mg/dL 70-105 (test fjhr=684) CALCIUM (BEAKER) (test 8.9 mg/dL 8.4-10.2 xlow=761) EGFR (BEAKER) (test 105 mL/min/1.73 sq m ESTIMATED GFR IS NOT ygts=7440) ACCURATE CREATININE CLEARANCE IN PREDICTING GLOMERULAR FILTRATION RATE. ESTIMATED GFR IS NOT APPLICABLE FOR DIALYSIS PATIENTS. CBC (HEMOGRAM ONLY)2018-12-05 05:18:00 Test Item Value Reference Range Comments WHITE BLOOD CELL COUNT (BEAKER) (test lstr=953) 9.8 K/ L 3.5-10.5 RED BLOOD CELL COUNT (BEAKER) (test lzpw=853) 2.82 M/ L 4.63-6.08 HEMOGLOBIN (BEAKER) (test vvst=870) 8.8 GM/DL 13.7-17.5 HEMATOCRIT (BEAKER) (test acaj=976) 27.9 % 40.1-51.0 MEAN CORPUSCULAR VOLUME (BEAKER) (test wrmc=545) 98.9 fL 79.0-92.2 MEAN CORPUSCULAR HEMOGLOBIN (BEAKER) (test 31.2 pg 25.7-32.2 ladq=093) MEAN CORPUSCULAR HEMOGLOBIN CONC (BEAKER) (test 31.5 GM/DL 32.3-36.5 vtlk=945) RED CELL DISTRIBUTION WIDTH (BEAKER) (test 14.7 % 11.6-14.4 exzo=347) PLATELET COUNT (BEAKER) (test uzth=244) 339 K/CU MM 150-450 MEAN PLATELET VOLUME (BEAKER) (test mqcb=233) 8.6 fL 9.4-12.4 NUCLEATED RED BLOOD CELLS (BEAKER) (test 0 /100 WBC 0-0 iseg=470) URINE [id number] 09:04:00 Test Item Value Reference Range Comments CULTURE (BEAKER) (test smoo=6247) <10,000 col/mL skin carlie GRAM STAIN RESULT (BEAKER) (test No WBCs cewz=6746) GRAM STAIN RESULT (BEAKER) (test No organisms seen qlfc=83285) BASIC METABOLIC [id number] 08:23:00 Test Item Value Reference Range Comments SODIUM (BEAKER) (test 137 meq/L 136-145 umqi=482) POTASSIUM (BEAKER) (test 3.2 meq/L 3.5-5.1 ripz=028) CHLORIDE (BEAKER) (test 105 meq/L 98-107 qztp=702) CO2 (BEAKER) (test 25 meq/L 22-29 aewe=331) BLOOD UREA NITROGEN 12 mg/dL 7-21 (BEAKER) (test hwaq=322) CREATININE (BEAKER) (test 0.72 mg/dL 0.57-1.25 wvbd=347) GLUCOSE RANDOM (BEAKER) 83 mg/dL 70-105 (test teko=688) CALCIUM (BEAKER) (test 8.2 mg/dL 8.4-10.2 bkeq=847) EGFR (BEAKER) (test 106 mL/min/1.73 sq m ESTIMATED GFR IS NOT raip=1800) ACCURATE CREATININE CLEARANCE IN PREDICTING GLOMERULAR FILTRATION RATE. ESTIMATED GFR IS NOT APPLICABLE FOR DIALYSIS PATIENTS. CBC (HEMOGRAM ONLY)2018-12-04 05:46:00 Test Item Value Reference Range Comments WHITE BLOOD CELL COUNT (BEAKER) (test maos=450) 6.6 K/ L 3.5-10.5 RED BLOOD CELL COUNT (BEAKER) (test duec=577) 2.54 M/ L 4.63-6.08 HEMOGLOBIN (BEAKER) (test odkh=053) 8.0 GM/DL 13.7-17.5 HEMATOCRIT (BEAKER) (test wbhe=490) 25.2 % 40.1-51.0 MEAN CORPUSCULAR VOLUME (BEAKER) (test ksxp=463) 99.2 fL 79.0-92.2 MEAN CORPUSCULAR HEMOGLOBIN (BEAKER) (test 31.5 pg 25.7-32.2 pjdm=850) MEAN CORPUSCULAR HEMOGLOBIN CONC (BEAKER) (test 31.7 GM/DL 32.3-36.5 qbfn=434) RED CELL DISTRIBUTION WIDTH (BEAKER) (test 14.6 % 11.6-14.4 jorx=327) PLATELET COUNT (BEAKER) (test qebb=793) 275 K/CU MM 150-450 MEAN PLATELET VOLUME (BEAKER) (test ungp=857) 8.6 fL 9.4-12.4 NUCLEATED RED BLOOD CELLS (BEAKER) (test 0 /100 WBC 0-0 opug=734) VANCOMYCIN LEVEL, [id number] 23:00:00 Test Item Value Reference Range Comments VANCOMYCIN TROUGH (BEAKER) (test exww=726) 14.9 ug/mL 10.0-20.0 Draw immediately prior to next vancomycin dose.T4, [id number] 15:36:00 Test Item Value Reference Range Comments FREE T4 (BEAKER) (test zyhh=413) 1.11 ng/dL 0.70-1.48 TSH/FREE T4 IF [id number] 14:30:00 Test Item Value Reference Range Comments THYROID STIMULATING HORMONE (BEAKER) (test 20.21 uIU/mL 0.35-4.94 fbwf=331) [id number] 14:30:00 Test Item Value Reference Range Comments FERRITIN (BEAKER) (test agei=797) 2873 ng/mL 5-275 VITAMIN B12 AND [id number] 14:27:00 Test Item Value Reference Range Comments VITAMIN B12 (BEAKER) (test owhb=187) 1000 pg/mL 213-816 FOLATE (BEAKER) (test cxgr=315) 18.4 ng/mL >=7.0 [id number] 13:34:00 Test Item Value Reference Range Comments PREALBUMIN (BEAKER) (test qpia=670) 11 mg/dL 14-45 IRON, TIBC, % SAT. (WITHOUT FERRITIN)2018-12-03 13:34:00 Test Item Value Reference Range Comments IRON (BEAKER) (test dibk=554) 25.0 ug/dL 40.0-160.0 TOTAL IRON BINDING CAPACITY (BEAKER) (test 144 ug/dL 250-450 eaxm=816) IRON % SATURATION (2) (BEAKER) (test hlwz=7821) 17 % 20-55 BASIC METABOLIC [id number] 07:42:00 Test Item Value Reference Range Comments SODIUM (BEAKER) (test 137 meq/L 136-145 kppg=805) POTASSIUM (BEAKER) (test 3.2 meq/L 3.5-5.1 kklp=098) CHLORIDE (BEAKER) (test 106 meq/L 98-107 ikmp=782) CO2 (BEAKER) (test 25 meq/L 22-29 cxed=136) BLOOD UREA NITROGEN 12 mg/dL 7-21 (BEAKER) (test ppbr=877) CREATININE (BEAKER) (test 0.69 mg/dL 0.57-1.25 hiyl=015) GLUCOSE RANDOM (BEAKER) 84 mg/dL 70-105 (test vlzl=285) CALCIUM (BEAKER) (test 8.2 mg/dL 8.4-10.2 bfia=348) EGFR (BEAKER) (test 112 mL/min/1.73 sq m ESTIMATED GFR IS NOT scol=1132) ACCURATE CREATININE CLEARANCE IN PREDICTING GLOMERULAR FILTRATION RATE. ESTIMATED GFR IS NOT APPLICABLE FOR DIALYSIS PATIENTS. CBC (HEMOGRAM ONLY)2018-12-03 06:58:00 Test Item Value Reference Range Comments WHITE BLOOD CELL COUNT (BEAKER) (test ymll=578) 5.2 K/ L 3.5-10.5 RED BLOOD CELL COUNT (BEAKER) (test twhg=454) 2.39 M/ L 4.63-6.08 HEMOGLOBIN (BEAKER) (test sieh=033) 7.5 GM/DL 13.7-17.5 HEMATOCRIT (BEAKER) (test yprx=560) 24.0 % 40.1-51.0 MEAN CORPUSCULAR VOLUME (BEAKER) (test gkxo=313) 100.4 fL 79.0-92.2 MEAN CORPUSCULAR HEMOGLOBIN (BEAKER) (test 31.4 pg 25.7-32.2 oddo=637) MEAN CORPUSCULAR HEMOGLOBIN CONC (BEAKER) (test 31.3 GM/DL 32.3-36.5 kmvd=528) RED CELL DISTRIBUTION WIDTH (BEAKER) (test 14.7 % 11.6-14.4 wnhg=042) PLATELET COUNT (BEAKER) (test xcry=322) 239 K/CU MM 150-450 MEAN PLATELET VOLUME (BEAKER) (test lrth=433) 8.6 fL 9.4-12.4 NUCLEATED RED BLOOD CELLS (BEAKER) (test 0 /100 WBC 0-0 iflj=926) RAD, CHEST, 1 VIEW, NON [id number] 15:48:00Reason for exam:-> asthmaShould this be performed at the bedside?->YesFINAL REPORT RAD, CHEST, 1 VIEW, NON DEPT CLINICAL INDICATION: asthma COMPARISON: None TECHNIQUE: Frontal view of the chest FINDINGS: The lungs are clear. No pleural effusion or pneumothorax. Cardiomediastinal silhouette, justyn, and pulmonary vasculature are normal. No acute osseous abnormality. IMPRESSION:No acute cardiopulmonary abnormality. Signed: Meservy, Michelle MDReport Verified Date /Time: 12/02/2018 15:48:29 Reading Location: [facility] [id number] Consult Reading Room URINALYSIS W/ [id number] 13:57:00 Test Item Value Reference Range Comments COLOR (BEAKER) (test bnja=783) Yellow CLARITY (BEAKER) (test tino=070) Clear SPECIFIC GRAVITY UA (BEAKER) (test kwrb=113) 1.019 1.001-1.035 PH UA (BEAKER) (test rnhd=241) 5.5 5.0-8.0 PROTEIN UA (BEAKER) (test khby=045) Negative Negative GLUCOSE UA (BEAKER) (test ktwy=334) Negative Negative KETONES UA (BEAKER) (test rcvv=996) Negative Negative BILIRUBIN UA (BEAKER) (test wqld=342) Negative Negative BLOOD UA (BEAKER) (test ghzl=744) Trace Negative NITRITE UA (BEAKER) (test dnnu=800) Negative Negative LEUKOCYTE ESTERASE UA (BEAKER) (test nxfa=693) Negative Negative UROBILINOGEN UA (BEAKER) (test ktfb=235) 0.2 mg/dL 0.2-1.0 RBC UA (BEAKER) (test zpmr=838) < /HPF WBC UA (BEAKER) (test yfcy=855) 1 /HPF MUCUS (BEAKER) (test lplm=0723) Rare SOURCE(BEAKER) (test tmqy=9030) T4, [id number] 09:26:00 Test Item Value Reference Range Comments FREE T4 (BEAKER) (test jmmy=421) 1.01 ng/dL 0.70-1.48 TSH/FREE T4 IF [id number] 08:33:00 Test Item Value Reference Range Comments THYROID STIMULATING HORMONE (BEAKER) (test 11.91 uIU/mL 0.35-4.94 zwao=025) [id number] 08:14:00 Test Item Value Reference Range Comments PHOSPHORUS (BEAKER) (test qynu=500) 2.3 mg/dL 2.3-4.7 [id number] 08:14:00 Test Item Value Reference Range Comments MAGNESIUM (BEAKER) (test wgtz=423) 1.6 mg/dL 1.6-2.6 BASIC METABOLIC [id number] 08:14:00 Test Item Value Reference Range Comments SODIUM (BEAKER) (test 138 meq/L 136-145 mzli=948) POTASSIUM (BEAKER) (test 3.4 meq/L 3.5-5.1 nyyw=623) CHLORIDE (BEAKER) (test 104 meq/L 98-107 olol=324) CO2 (BEAKER) (test 28 meq/L 22-29 zdzm=953) BLOOD UREA NITROGEN 15 mg/dL 7-21 (BEAKER) (test vktn=692) CREATININE (BEAKER) (test 0.70 mg/dL 0.57-1.25 ijua=727) GLUCOSE RANDOM (BEAKER) 88 mg/dL 70-105 (test davi=988) CALCIUM (BEAKER) (test 8.5 mg/dL 8.4-10.2 btul=253) EGFR (BEAKER) (test 110 mL/min/1.73 sq m ESTIMATED GFR IS NOT szkf=4450) ACCURATE CREATININE CLEARANCE IN PREDICTING GLOMERULAR FILTRATION RATE. ESTIMATED GFR IS NOT APPLICABLE FOR DIALYSIS PATIENTS. LIPID [id number] 08:14:00 Test Item Value Reference Range Comments TRIGLYCERIDES (BEAKER) (test ksww=188) 87 mg/dL CHOLESTEROL (BEAKER) (test ckoh=041) 122 mg/dL HDL CHOLESTEROL (BEAKER) (test vcdx=134) 33 mg/dL LDL CHOLESTEROL CALCULATED (BEAKER) (test 72 mg/dL mydy=728) Triglyceride Reference Range: Low Risk <150 Borderline 150- 199 High Risk 200-499 Very High Risk >=500Cholesterol Reference Range: Low Risk <200 Borderline 200-239 High Risk > 240HDL Cholesterol Reference Range: Low Risk >=60 High Risk <40LDL Cholesterol Reference Range: Optimal <100 Near Optimal 100-129 Borderline 130-159 High 160-189 Very High >=190HEPATIC FUNCTION [id number] 08:14:00 Test Item Value Reference Range Comments TOTAL PROTEIN (BEAKER) (test rnuf=172) 5.7 gm/dL 6.0-8.3 ALBUMIN (BEAKER) (test odcr=7909) 2.8 g/dL 3.5-5.0 BILIRUBIN TOTAL (BEAKER) (test uahr=778) 0.2 mg/dL 0.2-1.2 BILIRUBIN DIRECT (BEAKER) (test atek=768) 0.1 mg/dL 0.1-0.5 ALKALINE PHOSPHATASE (BEAKER) (test zapm=179) 82 U/L 40-150 AST (SGOT) (BEAKER) (test ysre=755) 20 U/L 5-34 ALT (SGPT) (BEAKER) (test etyw=403) 17 U/L 6-55 CBC W/PLT COUNT & AUTO [id number] 08:10:00 Test Item Value Reference Range Comments WHITE BLOOD CELL COUNT (BEAKER) (test aevs=053) 6.6 K/ L 3.5-10.5 RED BLOOD CELL COUNT (BEAKER) (test gzyw=004) 2.49 M/ L 4.63-6.08 HEMOGLOBIN (BEAKER) (test ualj=037) 7.8 GM/DL 13.7-17.5 HEMATOCRIT (BEAKER) (test xvnr=506) 24.8 % 40.1-51.0 MEAN CORPUSCULAR VOLUME (BEAKER) (test nilx=812) 99.6 fL 79.0-92.2 MEAN CORPUSCULAR HEMOGLOBIN (BEAKER) (test 31.3 pg 25.7-32.2 agpp=723) MEAN CORPUSCULAR HEMOGLOBIN CONC (BEAKER) (test 31.5 GM/DL 32.3-36.5 nbgj=469) RED CELL DISTRIBUTION WIDTH (BEAKER) (test 14.7 % 11.6-14.4 szji=845) PLATELET COUNT (BEAKER) (test puxc=697) 265 K/CU MM 150-450 MEAN PLATELET VOLUME (BEAKER) (test fkyl=748) 8.5 fL 9.4-12.4 NUCLEATED RED BLOOD CELLS (BEAKER) (test 0 /100 WBC 0-0 jtrg=720) NEUTROPHILS RELATIVE PERCENT (BEAKER) (test 85 % vwaj=235) LYMPHOCYTES RELATIVE PERCENT (BEAKER) (test 6 % lwnh=680) MONOCYTES RELATIVE PERCENT (BEAKER) (test 5 % fpdn=453) EOSINOPHILS RELATIVE PERCENT (BEAKER) (test 2 % wbtg=760) BASOPHILS RELATIVE PERCENT (BEAKER) (test 0 % apzu=975) NEUTROPHILS ABSOLUTE COUNT (BEAKER) (test 5.66 K/ L 1.78-5.38 bgmd=074) LYMPHOCYTES ABSOLUTE COUNT (BEAKER) (test 0.38 K/ L 1.32-3.57 nrij=268) MONOCYTES ABSOLUTE COUNT (BEAKER) (test 0.35 K/ L 0.30-0.82 atqv=483) EOSINOPHILS ABSOLUTE COUNT (BEAKER) (test 0.14 K/ L 0.04-0.54 awxr=798) BASOPHILS ABSOLUTE COUNT (BEAKER) (test 0.01 K/ L 0.01-0.08 zcgz=012) IMMATURE GRANULOCYTES-RELATIVE PERCENT (BEAKER) 1 % 0-1 (test kgob=4064) [id number] 08:03:00 Test Item Value Reference Range Comments PROTIME (BEAKER) (test xljn=932) 16.0 seconds 11.9-14.2 INR (BEAKER) (test wxda=355) 1.3 <=5.9 PARTIAL THROMBOPLASTIN TIME (BEAKER) (test 41.6 seconds 22.5-36.0 fesf=044) Effective 10/07/2018: PT Reference Range ChangeNew: 11.9-14.2 Previous: 11.7- 14.7RECOMMENDED COUMADIN/WARFARIN INR THERAPY RANGESSTANDARD DOSE: 2.0-3.0 Includes: PROPHYLAXIS for venous thrombosis, systemic embolization; TREATMENT for venous thrombosis and/or pulmonary embolus.HIGH RISK: Target INR is2.5-3.5 for patients wiht mechanical heart valves.TISSUE [id number] 18:31: 00Surgical Pathology Report Case: [id number] Authorizing Provider: Shruthi Greene MD Collected : 11/14/2017 1015 Ordering Location: [facility] Received: 11/14/2017 1019 SERVICES Pathologist: Melia De Anda MD Specimens: A) - Abdomen, ABDOMINAL WALL ABCESS AND CANCER B) -Large Intestine, Colon - Right/Ascending, perforated and abcessed C) - Abdomen , Abdominal wall perforated tumor This addendum is being issued to report the results of additional biomarker testing performed at [facility]. RESULT: - BRAF mutation: DETECTED Please refer to attached scanned report for further results. CPT: 06919Hixzpzbk electronically signed by Melia De Anda MD on 05/05/2018 at 6:31 PMThe addendum is issued to report the results of molecular tests performed at [facility]. 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 If there is direct invasion of thetumor, this could represent pT4b. Also, it is [...] Additional Dimension in Centimeters (cm): 6.6 Centimeters ( cm) Additional Dimension in Centimeters (cm): 1.2 Centimeters (cm) Tumor Deposits: Not identified Tumor Extent: Tumor Extension: Tumor invades the visceral peritoneum Macroscopic Tumor Perforation: Present Accessory Findings: Lymphovascular Invasion: Present : Small vessel lymphovascular invasion : Large vessel (venous) invasion Perineural Invasion: Present Treatment Effect: No known presurgical therapy MARGINS Margins: All margins are uninvolved byinvasive carcinoma, high-grade dysplasia, intramucosal adenocarcinoma, and adenoma [...] pN0 ADDITIONAL FINDINGS Additional Pathologic Findings: Adenoma(s) [id number] of ascending colonA. Abdomen; B. Large intestine, [...] the specimen outer surface is inked black andthe specimen is serially sectioned along the long axis perpendicular to the inner face between the fibrous and friable areas. A inbound customer service representative section is submitted for frozen evaluation as FSA1. The remainder of the specimen is serially submitted in its entirety in cassettes A1 through A5. JY/plB. Received labeled "ascending colon" are two segments of bowel. The first segment is 24.8 cm in length and ranging from 2.4 to 7.6 cm in diameter. The second bowel segment is unoriented measuring 20.6 cm inlength and ranging in diameter from 3.1 to [...] surface shows focal adhesions. The margins are inkedand the colonic segment is opened to reveal [...] segment is alfaro-brown to alfaro-pink with the expectedfolds. No other masses or lesions are grossly noted. No definite appendix is identified. A tubular structure is identified which possibly represents a vessel wall or an appendix.The additional small bowel segment is opened to reveal alfaro-brown to alfaro-pink mucosa with the expected folds , with focal erythema at the area of the previously described transmural tear. No masses or lesions are grossly evident. The serosal surface is a smooth and glistening alfaro-pink with multiple adhesions. The pericolonic fat is examined for lymph nodes and yields 21 candidate lymph nodes ranging from 0.1 to 0.5 cm in greatest dimension. Electric Motor Tester sections are submitted as follows: Ink code: blue, margin 1, first bowel segment; black margin 2, first bowel segment; green, fungating mass at serosa, first bowel segment; orange, margin 1, second bowel segment. Section code: cassette B1. Proximal margin of first bowel segment with tumor, en face; B2, Distal margin of first bowel segment with tumor ; B3, Proximal margin of second bowel segment without tumor en face; cassette B4 , Distal margin of second bowel segment without tumor; B5 through B13, inbound customer service representative tumor, including full thickness sections; B14, colon polyp; B15, Electric Motor Tester section grossly normal mucosa toward proximal margin; B16, inbound customer service representative grossly normal colonic mucosa toward distal of first bowel segment; B17, inbound customer service representative area of transmuraldefect in second bowel segment; B18, inbound customer service representative grossly normal mucosa of second bowel segment; B19, three candidate lymph nodes, whole; B20, four candidate lymph nodes, whole; B21, four candidate lymph nodes, whole; B22, three candidate lymph nodes, whole; B23, five candidate lymph nodes, whole; B24, two candidate lymph nodes, whole. B25, inbound customer service representative of tubular structure; B26, radial margin, en face.C. Received in formalin labeled "abdomen tissue" is a 7.8 x 4.2 x 1.6 cm aggregate of alfaro- white to alfaro-yellow fibrous to soft and friable soft tissue. Electric Motor Tester sections are submitted in Cassettes C1 to C3. HECTOR/Tevin SECTION DIAGNOSIS: AFS, ABDOMINAL WALL: - ADENOCARCINOMA These resultsare verbally reported to OR- [address] Duffy at 10:45 a.m. A,C. Performed.B. IHC testing for all four MMRproteins was performed on selected block B11 with [...] developed and its performance characteristics determined by [facility], Pathology Laboratory. It has not been cleared or approved by the U.S. Food and Drug Administration. The FDA has determined that such clearance or approval is not necessary. The test is used for clinical purposes. It should not be regarded as investigational or for research. This laboratory is certified under the Clinical Laboratory Improvement Amendments of 1988 (CLIA-88 ) as qualified to perform high complexity clinical laboratory testing.FUNGUS CULTURE + [id number] 10:57:00 Test Item Value Reference Range Comments CULTURE ([employer]) (test juky=7782) 1+ Angelica albicans FUNGUS SMEAR (BEAKER) (test No fungi seen ynea=8148) ANAEROBIC [id number] 08:16:00 Test Item Value Reference Range Comments CULTURE (BEAKER) (test tfxx=3198) 3+ Prevotella species SURGICALLY OBTAINED CULTURE + GRAM [id number] 15:35:00 Test Item Value Reference Range Comments CULTURE (BEAKER) (test PSEUDOMONAS 2+ Pseudomonas egem=8434) AERUGINOSA aeruginosa Amikacin (test code=1) Susceptible 0-16 , Resistant <0 or >16 Aztreonam (test Susceptible 0-8 , code=32) Resistant <0 or >8 Cefepime (test Susceptible 0-8 , code=51) Resistant <0 or >8 Ceftazidime (test Susceptible 0-8 , code=27) Resistant <0 or >8 Ciprofloxacin (test Susceptible 0-1 , code=7) Resistant <0 or >1 Doripenem (test Susceptible 0-2 , qfly=537) Resistant <0 or >2 Gentamicin (test Susceptible [...] CULTURE (BEAKER) (test ENTEROCOCCUS SPECIES 1+ Enterococcus yshc=8888) species Ampicillin (test code=26) Linezolid (test code=40) Vancomycin (test code=13) CULTURE (BEAKER) (test 1+ Viridans vlmp=8258) Streptococcus CULTURE (BEAKER) (test 1+ Diphtheroid koev=0249) GRAM STAIN RESULT <1+ WBCs (BEAKER) (test kjwj=1130) GRAM STAIN RESULT <1+ gram negative (BEAKER) (test rods qmzw=000244) GRAM STAIN RESULT 2+ gram positive (BEAKER) (test cocci in pairs arbl=454858) GRAM STAIN RESULT <1+ gram positive (BEAKER) (test rods hygl=300196) [id number] 06:33:00 Test Item Value Reference Range Comments MAGNESIUM (BEAKER) (test hbnu=574) 1.8 mg/dL 1.6-2.6 BASIC METABOLIC [id number] 06:33:00 Test Item Value Reference Range Comments SODIUM (BEAKER) (test 132 meq/L 136-145 erup=604) POTASSIUM (BEAKER) (test 3.6 meq/L 3.5-5.1 ykkr=639) CHLORIDE (BEAKER) (test 102 meq/L 98-107 hkbg=160) CO2 (BEAKER) (test 23 meq/L 22-29 uakz=289) BLOOD UREA NITROGEN 19 mg/dL 7-21 (BEAKER) (test msuw=554) CREATININE (BEAKER) (test 0.78 mg/dL 0.57-1.25 rjzk=878) GLUCOSE RANDOM (BEAKER) 87 mg/dL 70-105 (test ezju=166) CALCIUM (BEAKER) (test 8.4 mg/dL 8.4-10.2 yups=459) EGFR (BEAKER) (test 97 mL/min/1.73 sq m ESTIMATED GFR IS NOT ffwp=6554) ACCURATE CREATININE CLEARANCE IN PREDICTING GLOMERULAR FILTRATION RATE. ESTIMATED GFR IS NOT APPLICABLE FOR DIALYSIS PATIENTS. CBC W/PLT COUNT & AUTO [id number] 05:59:00 Test Item Value Reference Range Comments WHITE BLOOD CELL COUNT (BEAKER) (test vgch=415) 10.6 K/ L 3.5-10.5 RED BLOOD CELL COUNT (BEAKER) (test qbwf=392) 2.95 M/ L 4.63-6.08 HEMOGLOBIN (BEAKER) (test cltq=826) 8.5 GM/DL 13.7-17.5 HEMATOCRIT (BEAKER) (test uldk=041) 26.2 % 40.1-51.0 MEAN CORPUSCULAR VOLUME (BEAKER) (test dlmy=156) 88.8 fL 79.0-92.2 MEAN CORPUSCULAR HEMOGLOBIN (BEAKER) (test 28.8 pg 25.7-32.2 fspo=444) MEAN CORPUSCULAR HEMOGLOBIN CONC (BEAKER) (test 32.4 GM/DL 32.3-36.5 sbje=400) RED CELL DISTRIBUTION WIDTH (BEAKER) (test 13.9 % 11.6-14.4 hbyd=364) PLATELET COUNT (BEAKER) (test ccjp=841) 292 K/CU MM 150-450 MEAN PLATELET VOLUME (BEAKER) (test ugyd=570) 9.7 fL 9.4-12.4 NUCLEATED RED BLOOD CELLS (BEAKER) (test 0 /100 WBC 0-0 bzah=632) NEUTROPHILS RELATIVE PERCENT (BEAKER) (test 92 % yisp=325) LYMPHOCYTES RELATIVE PERCENT (BEAKER) (test 4 % cxbf=154) MONOCYTES RELATIVE PERCENT (BEAKER) (test 3 % pvif=192) EOSINOPHILS RELATIVE PERCENT (BEAKER) (test 1 % cfdz=285) BASOPHILS RELATIVE PERCENT (BEAKER) (test 0 % xzdb=656) NEUTROPHILS ABSOLUTE COUNT (BEAKER) (test 9.72 K/ L 1.78-5.38 rjou=029) LYMPHOCYTES ABSOLUTE COUNT (BEAKER) (test 0.38 K/ L 1.32-3.57 ssxw=514) MONOCYTES ABSOLUTE COUNT (BEAKER) (test 0.31 K/ L 0.30-0.82 hirm=466) EOSINOPHILS ABSOLUTE COUNT (BEAKER) (test 0.07 K/ L 0.04-0.54 qoct=420) BASOPHILS ABSOLUTE COUNT (BEAKER) (test 0.02 K/ L 0.01-0.08 lvld=483) IMMATURE GRANULOCYTES-RELATIVE PERCENT (BEAKER) 1 % 0-1 (test hxvc=8374) [id number] 07:20:00 Test Item Value Reference Range Comments MAGNESIUM (BEAKER) (test qjls=713) 1.8 mg/dL 1.6-2.6 BASIC METABOLIC [id number] 07:20:00 Test Item Value Reference Range Comments SODIUM (BEAKER) (test 131 meq/L 136-145 tgne=750) POTASSIUM (BEAKER) (test 3.9 meq/L 3.5-5.1 dczw=353) CHLORIDE (BEAKER) (test 98 meq/L 98-107 cjjs=851) CO2 (BEAKER) (test 26 meq/L 22-29 fbhx=876) BLOOD UREA NITROGEN 26 mg/dL 7-21 (BEAKER) (test lqcs=709) CREATININE (BEAKER) (test 1.00 mg/dL 0.57-1.25 vthp=574) GLUCOSE RANDOM (BEAKER) 116 mg/dL 70-105 (test rbgn=182) CALCIUM (BEAKER) (test 8.9 mg/dL 8.4-10.2 rcfm=363) EGFR (BEAKER) (test 73 mL/min/1.73 sq m ESTIMATED GFR IS NOT qrpb=2099) ACCURATE CREATININE CLEARANCE IN PREDICTING GLOMERULAR FILTRATION RATE. ESTIMATED GFR IS NOT APPLICABLE FOR DIALYSIS PATIENTS. CBC (HEMOGRAM ONLY)2017-11-16 05:18:00 Test Item Value Reference Range Comments WHITE BLOOD CELL COUNT (BEAKER) (test uxts=557) 15.4 K/ L 3.5-10.5 RED BLOOD CELL COUNT (BEAKER) (test oazn=665) 3.54 M/ L 4.63-6.08 HEMOGLOBIN (BEAKER) (test kmiz=288) 10.4 GM/DL 13.7-17.5 HEMATOCRIT (BEAKER) (test mxra=991) 31.6 % 40.1-51.0 MEAN CORPUSCULAR VOLUME (BEAKER) (test oqnw=210) 89.3 fL 79.0-92.2 MEAN CORPUSCULAR HEMOGLOBIN (BEAKER) (test 29.4 pg 25.7-32.2 vuqe=463) MEAN CORPUSCULAR HEMOGLOBIN CONC (BEAKER) (test 32.9 GM/DL 32.3-36.5 mzkw=418) RED CELL DISTRIBUTION WIDTH (BEAKER) (test 13.7 % 11.6-14.4 ymir=893) PLATELET COUNT (BEAKER) (test wico=483) 319 K/CU MM 150-450 MEAN PLATELET VOLUME (BEAKER) (test gicp=953) 10.5 fL 9.4-12.4 NUCLEATED RED BLOOD CELLS (BEAKER) (test 0 /100 WBC 0-0 uyzc=357) [id number] 06:33:00 Test Item Value Reference Range Comments MAGNESIUM (BEAKER) (test iheg=671) 1.7 mg/dL 1.6-2.6 BASIC METABOLIC [id number] 06:33:00 Test Item Value Reference Range Comments SODIUM (BEAKER) (test 129 meq/L 136-145 dlbj=632) POTASSIUM (BEAKER) (test 3.8 meq/L 3.5-5.1 cibi=068) CHLORIDE (BEAKER) (test 101 meq/L 98-107 eihh=390) CO2 (BEAKER) (test 23 meq/L 22-29 vumz=884) BLOOD UREA NITROGEN 27 mg/dL 7-21 (BEAKER) (test lwtp=741) CREATININE (BEAKER) (test 1.11 mg/dL 0.57-1.25 tdlv=037) GLUCOSE RANDOM (BEAKER) 113 mg/dL 70-105 (test ihlu=185) CALCIUM (BEAKER) (test 8.3 mg/dL 8.4-10.2 pumz=391) EGFR (BEAKER) (test 65 mL/min/1.73 sq m ESTIMATED GFR IS NOT aqgv=0548) ACCURATE CREATININE CLEARANCE IN PREDICTING GLOMERULAR FILTRATION RATE. ESTIMATED GFR IS NOT APPLICABLE FOR DIALYSIS PATIENTS. CBC (HEMOGRAM ONLY)2017-11-15 05:14:00 Test Item Value Reference Range Comments WHITE BLOOD CELL COUNT (BEAKER) (test beyn=737) 9.5 K/ L 3.5-10.5 RED BLOOD CELL COUNT (BEAKER) (test wcbm=179) 3.49 M/ L 4.63-6.08 HEMOGLOBIN (BEAKER) (test wdby=435) 10.2 GM/DL 13.7-17.5 HEMATOCRIT (BEAKER) (test rypo=323) 30.7 % 40.1-51.0 MEAN CORPUSCULAR VOLUME (BEAKER) (test dgnp=547) 88.0 fL 79.0-92.2 MEAN CORPUSCULAR HEMOGLOBIN (BEAKER) (test 29.2 pg 25.7-32.2 mzrc=607) MEAN CORPUSCULAR HEMOGLOBIN CONC (BEAKER) (test 33.2 GM/DL 32.3-36.5 rijx=237) RED CELL DISTRIBUTION WIDTH (BEAKER) (test 13.8 % 11.6-14.4 lmtl=772) PLATELET COUNT (BEAKER) (test yvad=566) 314 K/CU MM 150-450 MEAN PLATELET VOLUME (BEAKER) (test bvfn=701) 9.6 fL 9.4-12.4 NUCLEATED RED BLOOD CELLS (BEAKER) (test 0 /100 WBC 0-0 jeri=182) BASIC METABOLIC [id number] 16:22:00 Test Item Value Reference Range Comments SODIUM (BEAKER) (test 132 meq/L 136-145 xzqa=547) POTASSIUM (BEAKER) (test 3.9 meq/L 3.5-5.1 kniz=575) CHLORIDE (BEAKER) (test 96 meq/L 98-107 rmcj=213) CO2 (BEAKER) (test 26 meq/L 22-29 mebx=016) BLOOD UREA NITROGEN 30 mg/dL 7-21 (BEAKER) (test hwtp=184) CREATININE (BEAKER) (test 1.09 mg/dL 0.57-1.25 bnaa=655) GLUCOSE RANDOM (BEAKER) 86 mg/dL 70-105 (test sscb=494) CALCIUM (BEAKER) (test 9.8 mg/dL 8.4-10.2 ozry=495) EGFR (BEAKER) (test 66 mL/min/1.73 sq m ESTIMATED GFR IS NOT fxxj=8675) ACCURATE CREATININE CLEARANCE IN PREDICTING GLOMERULAR FILTRATION RATE. ESTIMATED GFR IS NOT APPLICABLE FOR DIALYSIS PATIENTS. [id number] 15:56:00 Test Item Value Reference Range Comments HEMOGLOBIN (BEAKER) (test bfyh=401) 11.2 GM/DL 13.7-17.5 PLATELET [id number] 15:56:00 Test Item Value Reference Range Comments PLATELET COUNT (BEAKER) (test dbhn=326) 365 K/CU MM 150-450
[2018-12-07] MEDS ORDERED: LORazepam 2 MG/ML VIAL IV PRN (22:40)
[2018-12-07] MEDS ORDERED: MORPHINE 2 MG/ML SYR IV PRN (22:40)
[2018-12-07] MEDS ORDERED: ATROPINE 1% OPTH DROPS 5ML SL PRN (22:46)
[2018-12-08 02:46] VITALS: BMI 21.9
[2018-12-08] MEDS ORDERED: ACETAMINOPHEN 325 MG TABLET PO PRN (11:54)
--- NOTE | 2018-12-08 21:05 | P.HP ---
Certification for Inpatient Patient admitted to: Inpatient With expected LOS: >2 Midnights Practitioner: I am a practitioner with admitting privileges, knowledge of patient current condition, hospital course, and medical plan of care. Services: Services provided to patient in accordance with Admission requirements found in Title 42 Section 412.3 of the Code of Federal Regulations Patient History Date of Service: 12/08/18 Reason for admission: END STAGE COLON CANCER History of Present Illness: MR. GALEAS HAS HAD DIAGNOSIS OF ADVANCED COLON CANCER WITH RUPTURE ABOUT A YEAR AGO WHEN THE CANCER DISSEMNIATED LOCALLY AT THE SITE OF RUPTURE. SINCE THEN HE HAS HAD CHEMOTHERAPY AND RADIATION THERAPY LOCALLY AT [facility] WITH DR JOSÉ AND DR PETE. HE WAS SENT TO [facility] FOR FISTULA FROM THE CANCER SITE AND HAS BEEN DEEMED INOPERABLE WIT ADVANCED COLON CANCER PLACED ON HOSPICE AND SENT BACK HERE. HE WAS TO BE ADMITTED WITH [facility] BUT [facility] NEVER DID ADMISSION FAMILY WANTED [facility] TO TAKE CARE OF HIM. I KNOW THE AND MOTHER IN LAW AND SO WANT ME TO TAKE CARE OF HIM WITH [facility]OSPICE. HE HAS NGT WITH [facility] FOR BOWEL OBSTRUCTION THAT IS INOPERABLE. WE CHECKED WITH [facility] AND ALSO TRIED TO GET HIM HOME WITH HOSPICE BUT NGT AND SUCTION IS NOT POSSIBLE ANYWHERE EXCEPT HOSPITAL. FOR THIS REASON HE QUALIFIES FOR INPATIENT CARE HE WILL BE VERY UNCOMFORTABLE AND WILL ASPIRATE WITHOUT NG TUBE. Allergies Penicillins Allergy (Verified 10/09/18 06:10) SWELLING codeine [From Tylenol-Codeine #3] Adverse Reaction (Verified 10/09/18 06:10) confusion Home Medications: Apixaban [Eliquis *] 5 mg PO BID 10/09/18 Levothyroxine [Synthroid*] 75 mcg PO [id number] 10/09/18 Omeprazole [Prilosec] 40 mg PO DAILY 10/09/18 - Past Medical/Surgical History Has patient received pneumonia vaccine in the past: No Diabetic: No -: colon cancer -: DVT -: hypothyroidism -: throat cancer -: htn -: asthma -: hernia repair -: hand reconstruction -: hemicolectomy - Family History Father -: Heart disease, Other (see notes) Notes: alzheimer's - Social History Smoking Status: Never smoker Alcohol use: Yes CD- Drugs: No Caffeine use: Yes Place of Residence: Home Review of Systems General: Weakness, Malaise Gastrointestinal: No Distention, As per HPI Physical Examination - Vital Signs Temperature: 98.0 F Blood Pressure: 123/60 Pulse: 82 Respirations: 18 Pulse Ox (%): 98 - Physical Exam General: Cachectic, Moderate distress HEENT: Atraumatic, PERRLA, Mucous membr. moist/pink, EOMI, Sclerae nonicteric Neck: Supple, 2+ carotid pulse no bruit, No LAD, Without JVD or thyroid abnormality Respiratory: Clear to auscultation bilaterally, Normal air movement Cardiovascular: Regular rate/rhythm, Normal S1 S2 Gastrointestinal: Hypoactive, No tenderness (NGT WITH L.I.S. HAS RELIEVED SYMPTOMS TEMPORARILY.) Musculoskeletal: No tenderness Integumentary: No rashes Neurological: Normal gait, Normal speech, Normal strength at 5/5 x4 extr, Normal tone, Normal affect Lymphatics: No axilla or inguinal lymphadenopathy Assessment and Plan - Problems (Diagnosis) (1) Bowel obstruction Current Visit: Yes Status: Acute Plan: HE WILL NEED NGT. THIS BOWEL OBSTRUCTION IS SECONDARY TO COLON CANCER WITH PERITONEAL METS. I HAVE REVIEWED RECORDS FROM [facility] AND THE ONCOLOGIST NOTES ARE SUGGESTIVE OF SUCH. 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 NOW WITH END STAGE STATUS HE NEEDS TO BE ON HOSPICE. SEE HPI FOR DETAILS. COMFORT MEDS WRITTEN. - Advance Directives Does patient have a Living Will: No Does patient have a Durable POA for Healthcare: Yes
[2018-12-08] MEDS ORDERED: MORPHINE 2 MG/ML SYR IV PRN (21:11)
[2018-12-08] MEDS ORDERED: LORazepam 2 MG/ML VIAL IV PRN (21:11)
[2018-12-08] MEDS ORDERED: ONDANSETRON 4 MG/2 ML VIAL IV PRN (21:12)
[2018-12-08] MEDS ORDERED: DIPHENHYDRAMINE 50 MG/ML VIAL IV PRN (21:13)
--- NOTE | 2018-12-09 12:43 | P.PN ---
Subjective Date of Service: 12/09/18 Chief Complaint: END STAGE COLON CANCER Subjective: No new changes LONG NG TUBE IS IN PLACE HE IS COMFORTABLE. NGT SUCTION IS STILL WORKING. HE HAS SOME PAIN AND TAKES MORPHINE IV NEEDED. Review of Systems 10-point ROS is otherwise unremarkable General: Weakness, Malaise Gastrointestinal: Nausea, Vomiting, Abdominal Pain, Distention Physical Examination - Vital Signs Temperature: 97.8 F Blood Pressure: 144/65 Pulse: 77 Respirations: 14 Pulse Ox (%): 96 - Physical Exam General: Alert, Cachectic, Moderate distress HEENT: Atraumatic, PERRLA, EOMI Neck: Supple, JVD not distended Respiratory: Clear to auscultation bilaterally, Normal air movement Cardiovascular: Regular rate/rhythm, Normal S1 S2 Gastrointestinal: Soft and benign Musculoskeletal: No tenderness Integumentary: No rashes Neurological: Normal speech, Normal tone, Normal affect Lymphatics: No axilla or inguinal lymphadenopathy - Studies Medications List Reviewed: Yes Assessment And Plan - Current Problems (Diagnosis) (1) Bowel obstruction Current Visit: Yes Status: Acute Plan: HE WILL NEED NGT. THIS BOWEL OBSTRUCTION IS SECONDARY TO COLON CANCER WITH PERITONEAL METS. I HAVE REVIEWED RECORDS FROM [facility] AND THE ONCOLOGIST NOTES ARE SUGGESTIVE OF SUCH. RESUME INPATIENT HOSPICE THIS THERAPY WILL NOT BE POSSIBLE AT HOME. GRADUAL WORSENED CONDITION. 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 NOW WITH END STAGE STATUS HE NEEDS TO BE ON HOSPICE. SEE HPI FOR DETAILS. COMFORT MEDS WRITTEN.
[2018-12-10] MEDS ORDERED: SCOPOLAMINE HYDROBROMIDE PATCH TD SCH (09:00)
--- NOTE | 2018-12-10 13:18 | P.PN ---
Subjective Date of Service: 12/10/18 Chief Complaint: END STAGE COLON CANCER Subjective: No new changes LONG NG TUBE IS IN PLACE HE IS COMFORTABLE. NGT SUCTION IS STILL WORKING. HE HAS SOME PAIN AND TAKES MORPHINE IV NEEDED. [facility] HAS ARRANGED A HOME NGT SUCTION MACHINE FOR HIM. DR. TERRAZAS CALLED BACK I HAD QUESTIONS ABOUT HIS STATUS. PER HIM MR. DOOLEY CANCER WAS LOCALLY INVASIVE, HAD CHEMO AND RADIATION FOR IT. HE FAILED TO HEAL IN THE REGION, DEVELOPED A FISTULA AND ALSO CREATED CANCER INDUCED INTESTINAL BLOCKAGE THAT IS INOPERABLE. PER DR. TERRAZAS NOTHING CAN BE DONE AND SO HE ADVISED PALLIATIVE CARE. WITHOUT NGT AND SUCTION HE WILL START HAVING DISTENSION AND WILL HAVE A LOT OF SYMPTOMS. HE WILL GO TO ID IN AM AND CONTINUE HOSPICE CARE THERE. Physical Examination - Vital Signs Temperature: 97.3 F Blood Pressure: 155/68 Pulse: 75 Respirations: 18 Pulse Ox (%): 91 - Studies Medications List Reviewed: Yes Assessment And Plan - Current Problems (Diagnosis) (1) Bowel obstruction Current Visit: Yes Status: Acute Plan: HE WILL NEED NGT. THIS BOWEL OBSTRUCTION IS SECONDARY TO COLON CANCER WITH PERITONEAL METS. I HAVE REVIEWED RECORDS FROM [facility] AND THE ONCOLOGIST NOTES ARE SUGGESTIVE OF SUCH. RESUME INPATIENT HOSPICE THIS THERAPY WILL NOT BE POSSIBLE AT HOME. GRADUAL WORSENED CONDITION. DC IN AM PER DESCRIBED IN THE NOTE. 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 NOW WITH END STAGE STATUS HE NEEDS TO BE ON HOSPICE. SEE HPI FOR DETAILS. COMFORT MEDS WRITTEN.
[2018-12-10 20:31] VITALS: O2SAT 95
[2018-12-11 10:15] VITALS: BP 149/52; TEMP 98.1
== END 2018-12-11 09:31 | disposition hospice, inpatient (51) | DRG 375 ==
LOC: 4TH 20:49
PROVIDERS: ADMIT Family Medicine; ATTEND Internal Medicine
DX: C18.9 Malignant neoplasm of colon, unspecified (principal); C78.6 Secondary malignant neoplasm of retroperitoneum and peritoneum; Z51.5 Encounter for palliative care; E03.9 Hypothyroidism, unspecified; I10 Essential (primary) hypertension; J45.909 Unspecified asthma, uncomplicated; Z92.21 Personal history of antineoplastic chemotherapy; Z92.3 Personal history of irradiation; Z86.718 Personal history of other venous thrombosis and embolism; Z90.49 Acquired absence of other specified parts of digestive tract; Z88.5 Allergy status to narcotic agent; Z88.0 Allergy status to penicillin
CPT/HCPCS: J2270